=== PATIENT | female | born 1935 | race Caucasian/White ===

== ENCOUNTER → 2017-09-11 | Outpatient (CLI) | payer MEDICARE, OTHER, BC ==
[2016-08-11 11:24] VITALS: BP 115/65
--- NOTE | 2017-09-11 14:54 | RAD ---
DATE: 09/11/2017 EXAM: MAMMO DANIELLE SCREENING BILATERAL HISTORY: Routine screening, remote right breast cancer COMPARISON: 08/30/2015 This study was interpreted with the benefit of Computerized Aided Detection (CAD). The breast parenchyma shows scattered fibroglandular densities. Breast parenchyma level B. FINDINGS: 2-D and 3-D tomosynthesis imaging was performed in CC and MLO projections. No new or enlarging breast densities are seen. Benign type calcifications are present. No suspicious microcalcifications have developed. IMPRESSION: Stable mammograms without evidence of malignancy. BI-RADS CATEGORY: 2 BENIGN FINDING(S) RECOMMENDED FOLLOW-UP: 12M 12 MONTH FOLLOW-UP PQRS compliance statement: Patient information was entered into a reminder system with a target due date for the next mammogram. Mammography is a sensitive method for finding small breast cancers, but it does not detect them all and is not a substitute for careful clinical examination. A negative mammogram does not negate a clinically suspicious finding and should not result in delay in biopsying a clinically suspicious abnormality. "Our facility is accredited by the [employer] Mammography Program."
== END | disposition home or self-care (01) ==
LOC: MAMMO 08:21
PROVIDERS: ATTEND Nurse Practitioner Family
DX: Z12.31 Encounter for screening mammogram for malignant neoplasm of breast (principal); E11.9 Type 2 diabetes mellitus without complications; I10 Essential (primary) hypertension; Z85.3 Personal history of malignant neoplasm of breast
CPT/HCPCS: 77063; 77067

== ENCOUNTER → 2017-09-15 | Outpatient (CLI) | payer MEDICARE, OTHER, BC ==
[2016-08-11 11:24] VITALS: BP 115/65
[2017-09-15 10:03] LABS: BASO % 1 % (0-3); EOS # 0.1 x10^3/uL (0.0-0.7); EOS % 1 % (0-3); HEMATOCRIT 32.8 % (36.0-47.0); HEMOGLOBIN 10.8 g/dL (12.0-15.5); LYMPH # 0.7 x10^3/uL (1.0-4.8); LYMPH % 14 % (24-48); MEAN CORPUSCULAR HEMOGLOBIN 31 pg (25-35); MEAN CORPUSCULAR HGB CONC 33 g/dL (31-37); MEAN CORPUSCULAR VOLUME 95 fL (79-100); MONO # 0.4 x10^3/uL (0.0-1.1); MONO % 8 % (0-9); NEUT % 77 % (31-73); PLATELET COUNT 184 x10^3/uL (140-400); RED BLOOD COUNT 3.45 x10^6/uL (3.50-5.40); RED CELL DISTRIBUTION WIDTH 13.8 % (11.5-14.5); WHITE BLOOD COUNT 5.2 x10^3/uL (4.0-11.0)
[2017-09-15 10:18] LABS: BACTERIA,URINE FEW /HPF (0-FEW); BILIRUBIN,URINE NEG (NEG); CLARITY,URINE HAZY; COLOR,URINE YELLOW; GLUCOSE,URINE NEG (NEG); NITRITE,URINE NEG (NEG); RBC,URINE 0 /HPF (0-2); SQUAMOUS EPITHELIAL CELL,UR FEW /LPF; UROBILINOGEN,URINE 0.2 mg/dL (0.2 mg/dL)
[2017-09-15 10:29] LABS: ALBUMIN 3.6 g/dL (3.4-5.0); CREATININE 1.1 mg/dL (0.6-1.0); DIRECT BILIRUBIN 0.1 mg/dL (0.0-0.2); GFR 47.3; POTASSIUM 4.6 mmol/L (3.5-5.1); TOTAL BILIRUBIN 0.3 mg/dL (0.2-1.0); TOTAL PROTEIN 6.1 g/dL (6.4-8.2)
[2017-09-15 20:26] LABS: FREE T4 1.11 ng/dL (0.76-1.46); THYROID STIM HORMONE (TSH) 3.191 uIU/mL (0.358-3.740)
[2017-09-16 01:08] LABS: HEMOGLOBIN A1C 5.5 % (4.8-5.6)
== END | disposition home or self-care (01) ==
LOC: LAB 08:21
PROVIDERS: ATTEND Nurse Practitioner Family
DX: Z00.01 Encounter for general adult medical examination with abnormal findings (principal); E11.649 Type 2 diabetes mellitus with hypoglycemia without coma; I10 Essential (primary) hypertension; E78.00 Pure hypercholesterolemia, unspecified; R82.99 Other abnormal findings in urine
CPT/HCPCS: 36415; 80048; 80061; 80076; 81001; 83036; 84439; 84443; 85025; 87086

== ENCOUNTER 2017-10-17 19:09 | Emergency (ER) | payer MEDICARE, BC, OTHER ==
[~2017-10-17] VITALS: Ht 165.1 cm; Wt 93.3 kg
--- NOTE | 2017-10-17 19:14 | ED.ADGEN ---
Past History Past Medical History: Cancer, Diabetes, High Cholesterol, Hypertension Past Surgical History: Cancer Surgery Alcohol Use: None Drug Use: None Adult General Chief Complaint Chief Complaint "... I was going down the stairs at the [facility]... and got to the landing... and when I started down the next set of stairs.. I missed the step and spun... and lady caught me.... and I cut this Rt thumb... and banged the edge of this Lt knee...." HPI HPI Patient is a 82 year old female who presents with above hx and complaints avulsion laceration to Rt. thumb and contusion to Lt knee. Pt. denies she fell , (but almost). Pt caught thumb on the underside of rail and tore the skin, causing a 4 cm flap laceration and contusion. Pt. Lt. hand dominate. Pt. has small contusion to Lt knee. Distal neurovascular intact. Can do straight leg lift. Has findings of old knee replacement surgery. Pt. denies and dizziness or syncope. States she just missed the step. Pt. does not remember her last tetanus...but thinks it has been over 10 yrs. Review of Systems Review of Systems Constitutional: Denies fever or chills [] Eyes: Denies change in visual acuity, redness, or eye pain [] HENT: Denies nasal congestion or sore throat [] Respiratory: Denies cough or shortness of breath [] Cardiovascular: No additional information not addressed in HPI [] GI: Denies abdominal pain, nausea, vomiting, bloody stools or diarrhea [] : Denies dysuria or hematuria [] Musculoskeletal: Denies back pain or joint pain []Complaints of contusion to Lt lateral knee. Integument: Denies rash or skin lesions [] Complaints of laceration Rt thumb. Neurologic: Denies headache, focal weakness . Pt does have some distal chronic sensory changes [] Endocrine: Denies polyuria or polydipsia []Hx of DM All other systems were reviewed and found to be within normal limits, except as documented in this note. Family History Family History Non-contributory to presentation. Current Medications Current Medications Current Medications Medications (Trade) Dose Ordered Sig/Halley Start Time Stop Time Status Last Admin Dose Admin Bupivacaine HCl (Sensorcaine Mpf 0.5%) 30 ml 1X ONCE 10/17/17 19:30 4/20/18 19:31 DC Lidocaine HCl 20 ml STK-MED ONCE 10/17/17 19:22 10/17/17 19:23 DC Lidocaine/ Epinephrine (Xylocaine 2%-Epi 1:100,000) 20 ml 1X ONCE 10/17/17 19:30 10/17/17 19:31 DC Tetanus/ Diphtheria Toxoids Adsorbed (Tenivac Vial) 0.5 ml ONCE ONCE 10/17/17 19:30 10/17/17 19:31 DC 10/17/17 20:39 0.5 ML Allergies Allergies Allergies Coded Allergies Type Severity Reaction Last Updated Verified Penicillins Allergy Severe 03/07/16 Yes Sulfa (Sulfonamide Antibiotics) Allergy Severe 03/07/16 Yes Physical Exam Physical Exam Constitutional: Moderately acute distress, non-toxic appearance. [] HENT: Normocephalic, atraumatic, bilateral external ears normal, oropharynx moist, no oral exudates, nose normal. [] Eyes: PERRLA, EOMI, conjunctiva normal, no discharge. [] Neck: Normal range of motion, no tenderness, supple, no stridor. [] Cardiovascular:Heart rate regular rhythm, no murmur [] Lungs & Thorax: Bilateral breath sounds equal at apex on auscultation [] Abdomen: Bowel sounds normal, soft, no tenderness, no masses, no pulsatile masses. Obese. Skin: Warm, dry, no erythema, no rash. Skin avulsion tear to Rt dorsal thumb. 4 cm star laceration. Back: No tenderness, no CVA tenderness. [] Extremities: No tenderness, no cyanosis, no clubbing, ROM intact, no edema. [] Arthritic changes. Old surgery scar Lt knee. Contusion Lateral side of knee. Neurologic: Alert and oriented X 3, normal motor function, normal sensory function, no focal deficits noted. []Somewhat wide gait. Psychologic: Affect anxious, judgement normal, mood normal. 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 []Some edema. My interpretation of Lt knee shows old hardware. No obvious fx. or dislocation. DJD Course & Med Decision Making Course & Med Decision Making Pertinent Labs and Imaging studies reviewed. (See chart for details) Suture- Laceration repair.- Wound on Rt dorsal thumb irrigated with saline. Injected edges of laceration with lidocaine and sensorcaine. Wound then re- irrigated extensively in ROM. Skin was torn in an irregular star shaped laceration. Much of skin flap was avascular in appearance. Laceration approximate 4 cm. Skin was pulled together with 4-0 prolene, x 6 running and purse string type pattern. Dressing place with antibiotic ointment- Bactracin. Pt. to keep wound clean and dry. Once initial dressing off to apply polysporin 4 x day. Would expect lost of skin flap since it appears avascular. Will have a scar. Revision may be necessary. Sutures out in 10 days. Skin may be at risk for infection because of contusion to soft tissue and skin was paper thin. Pt. to return if any concerns. Must follow up. Ice, elevation, rest of knee. Tylenol and ibuprofen for pain. [] Final Impression Final Impression 1. 4 cm Laceration dorsal Rt thumb. 2. Contusion to Lt knee[] Problems: Dragon Disclaimer Dragon Disclaimer This electronic medical record was generated, in whole or in part, using a voice recognition dictation system. KARI CLINE MD Oct 17, 2017 19:14
[2017-10-17 19:18] VITALS: BP 140/86
[2017-10-17] MEDS ORDERED: LIDOCAINE 2% 20 ML VIAL. ONE (19:22)
[2017-10-17] MEDS ORDERED: BUPIVACAINE MPF 0.5% 30 ML VIAL. SQ ONE (19:30)
[2017-10-17] MEDS ORDERED: LIDOCAINE 2%/EPI 1:100,000 20 ML VIAL. IJ ONE (19:30)
[2017-10-17] MEDS ORDERED: TETANUS AND DIPHTHERIA TOX/PF 0.5 ML VIAL. VAX IM ONE (19:30)
--- NOTE | 2017-10-18 08:51 | RAD ---
Left knee AP, oblique, lateral and patellar sunrise x-rays 4 views History: Fall, left knee pain. Findings: Total knee arthroplasty. No lucency surrounding the hardware to suggest loosening. No periprosthetic fracture. No fracture or dislocation at the knee. Mild heterotopic ossification posterior of the knee. Soft tissues are unremarkable. Impression: Left knee arthroplasty. No acute osseous injury evident.
--- NOTE | 2017-10-18 08:57 | RAD ---
Right hand x-rays 3 views History: Fall, right hand laceration near the thumb. Comparison: Right hand x-rays from March 09, 2011. Findings: No radiopaque foreign body evident. No fracture or dislocation of the hand. There is an old healed deformity of the base of the fifth metacarpal since the prior study. Osteoarthritic change at the first carpal metacarpal joint. Soft tissue calcifications or chronic foreign bodies in the soft tissues adjacent of the fifth metacarpophalangeal joint. Impression: No acute osseous injury.
== END 2017-10-17 21:00 | disposition home or self-care (01) ==
LOC: ER 19:09
DX: S61.011A Laceration without foreign body of right thumb without damage to nail, initial encounter (principal); S80.02XA Contusion of left knee, initial encounter; E11.9 Type 2 diabetes mellitus without complications; E78.00 Pure hypercholesterolemia, unspecified; I10 Essential (primary) hypertension; Z88.0 Allergy status to penicillin; Z88.2 Allergy status to sulfonamides; W10.8XXA Fall (on) (from) other stairs and steps, initial encounter; Y93.89 Activity, other specified; Y99.8 Other external cause status; Y92.89 Other specified places as the place of occurrence of the external cause
CPT/HCPCS: 12002; 73130; 73564; 82947; 90471; 90714; 99285-25

== ENCOUNTER 2017-10-27 09:19 | Emergency (ER) | payer MEDICARE, BC, OTHER ==
[~2017-10-27] VITALS: Ht 170.2 cm; Wt 86.2 kg
[2017-10-27 09:30] VITALS: BP 191/77
[2017-10-27] MEDS ORDERED: DOXY100C2 PO (10:12)
--- NOTE | 2017-10-27 10:13 | PHYS DOC ---
Past History Past Medical History: Cancer, Diabetes, High Cholesterol, Hypertension Past Surgical History: Cancer Surgery Alcohol Use: None Drug Use: None Adult General Chief Complaint Chief Complaint: SUTURE/STAPLE REMOVAL HPI HPI Patient is a 89 year old F who presents for suture removal from her right hand. Sutures were placed 10 days ago. She notes mild yellowish green drainage. She has been using triple antibiotic ointment and feels that the wound is slightly red and mildly tender. She has no fever sweats or chills. She has no exacerbating symptoms. She has no other associated symptoms Review of Systems Review of Systems Constitutional: Denies fever or chills [] Eyes: Denies change in visual acuity, redness, or eye pain [] HENT: Denies nasal congestion or sore throat [] Respiratory: Denies cough or shortness of breath [] Cardiovascular: No additional information not addressed in HPI [] GI: Denies abdominal pain, nausea, vomiting, bloody stools or diarrhea [] : Denies dysuria or hematuria [] Musculoskeletal: Denies back pain or joint pain [] Integument: Negative except history of present illness Neurologic: Denies headache, focal weakness or sensory changes [] Endocrine: Denies polyuria or polydipsia [] All other systems were reviewed and found to be within normal limits, except as documented in this note. Family History Family History No pertinent family medical history reported Current Medications Current Medications Current medications reviewed Allergies Allergies Allergies Coded Allergies Type Severity Reaction Last Updated Verified Penicillins Allergy Severe 03/07/16 Yes Sulfa (Sulfonamide Antibiotics) Allergy Severe 03/07/16 Yes Physical Exam Physical Exam Constitutional: Well developed, well nourished, no acute distress, non-toxic appearance. [] HENT: Normocephalic, atraumatic, Eyes: EOMI, conjunctiva normal, no discharge. [] Neck: Normal range of motion, no tenderness, supple, no stridor. [] Cardiovascular:Heart rate regular rhythm, no murmur [] Lungs & Thorax: Bilateral breath sounds clear to auscultation [] Skin: Laceration on the right lateral dorsal hand over the base of the first finger. Mild erythema noted around the wound with mild pain noted on suture removal. Minimal Purulent drainage noted on the dressing. Extremities: No tenderness, no cyanosis, no clubbing, ROM intact, no edema. [] Neurologic: Alert and oriented X 3, normal motor function, normal sensory function, no focal deficits noted. [] Psychologic: Affect normal, judgement normal, mood normal. [] Current Patient Data Vital Signs Vital Signs Date Time Temp Pulse Resp B/P (MAP) Pulse Ox O2 Delivery O2 Flow Rate FiO2 10/27/17 09:30 98.3 74 22 99 Room Air EKG EKG [] Radiology/Procedures Radiology/Procedures [] Course & Med Decision Making Course & Med Decision Making Pertinent Labs and Imaging studies reviewed. (See chart for details) It is possible that her symptoms represent infection versus irritation with topical antibiotics and poor wound healing. She was started on oral antibiotic in the emergency room and given a prescription to continue as an outpatient. She was also advised follow-up with her primary care doctor in the near future for further management Dragon Disclaimer Dragon Disclaimer This electronic medical record was generated, in whole or in part, using a voice recognition dictation system. Departure Departure: Impression: Primary Impression: Encounter for wound re-check Additional Impression: Cellulitis Disposition: 01 HOME, SELF-CARE Condition: STABLE Referrals: MANUEL FAN APRN (PCP) Patient Instructions: Wound Check Additional Instructions: Vickie was seen in the emergency department for wound check. No emergency medical condition was found on history or physical exam. Her sutures were removed. Her wound had some signs of infection. She was started on antibiotic and advised to follow-up with her primary care doctor in the next 3-5 days for further management. Scripts Doxycycline Hyclate (DOXYCYCLINE HYCLATE) 100 Mg Capsule 1 CAP PO BID for 7 Days, #14 CAP Prov: DAISY BOSCH MD 10/27/17 Problem Qualifiers Additional Impression: Cellulitis Site of cellulitis: unspecified site Qualified Codes: L03.90 - Cellulitis, unspecified DAISY BOSCH MD Oct 27, 2017 10:13
[2017-10-27] MEDS ORDERED: FENO160T PO (10:21)
[2017-10-27] MEDS ORDERED: LOSA1TAB19 PO (10:21)
[2017-10-27] MEDS ORDERED: PIOG30TA41 PO (10:21)
[2017-10-27] MEDS ORDERED: ZOLP10TA4 PO (10:21)
[2017-10-27] MEDS ORDERED: GLIM2TAB2 PO (10:21)
[2017-10-27] MEDS ORDERED: SITA1TAB7 PO (10:21)
[2017-10-27] MEDS ORDERED: DOXYCYCLINE HYCLATE 100 MG TABLET PO ONE (10:45)
== END 2017-10-27 10:53 | disposition home or self-care (01) ==
LOC: ER 09:19
DX: S61.411D Laceration without foreign body of right hand, subsequent encounter (principal); L03.113 Cellulitis of right upper limb; E11.9 Type 2 diabetes mellitus without complications; E78.00 Pure hypercholesterolemia, unspecified; I10 Essential (primary) hypertension; Z88.0 Allergy status to penicillin; Z88.2 Allergy status to sulfonamides; X58.XXXD Exposure to other specified factors, subsequent encounter
CPT/HCPCS: 99283

== ENCOUNTER 2017-10-31 08:36 | Inpatient (IN) | payer MEDICARE, BC, OTHER ==
[~2017-10-31] VITALS: Ht 170.2 cm; Wt 89.4 kg
[2017-10-31] VITALS (8 sets, daily range): BP systolic 96–189; BP diastolic 73–105
[~2017-10-31 08:36] MED LIST: DOXY100C2 PO; FENO160T PO; GLIM2TAB2 PO; LOSA1TAB19 PO; PIOG30TA41 PO; SITA1TAB7 PO; ZOLP10TA4 PO
[2017-10-31] MEDS ORDERED: ASPIRIN 81 MG TAB.CHEW PO ONE (08:45)
--- NOTE | 2017-10-31 08:46 | EKG ---
[address] [address] Test Date: 2017-10-31 Test Time: 08:42:14 Pat Name: ILANA MALONEY Department: Room: Gender: F Cook Candy: KARLIE : 1935 Requested By: DAVID RUIZ Order Number: [id number] Reading MD: Aristides Singer MD Measurements Intervals [place] Rate: 135 P: DC: QRS: -14 QRSD: 94 T: 44 QT: 314 QTc: 476 Interpretive Statements ATRIAL FIBRILLATION - NON-SPECIFIC ST/T CHANGES Electronically Signed On 11-04-2017 10:16:56 CDT by Aristides Singer MD
[2017-10-31] MEDS ORDERED: METOPROLOL TARTRATE 5 MG/5 ML VIAL. IV ONE ×2 (09:00→11:15)
[2017-10-31 09:37] LABS: BASO % 1 % (0-3); EOS % 1 % (0-3); HEMATOCRIT 35.5 % (36.0-47.0); HEMOGLOBIN 11.8 g/dL (12.0-15.5); LYMPH # 0.5 x10^3/uL (1.0-4.8); LYMPH % 9 % (24-48); MEAN CORPUSCULAR HEMOGLOBIN 32 pg (25-35); MEAN CORPUSCULAR HGB CONC 33 g/dL (31-37); MEAN CORPUSCULAR VOLUME 95 fL (79-100); MONO # 0.3 x10^3/uL (0.0-1.1); MONO % 6 % (0-9); NEUT # 4.4 x10^3uL (1.8-7.7); NEUT % 84 % (31-73); PLATELET COUNT 170 x10^3/uL (140-400); RED BLOOD COUNT 3.72 x10^6/uL (3.50-5.40); RED CELL DISTRIBUTION WIDTH 13.2 % (11.5-14.5); WHITE BLOOD COUNT 5.3 x10^3/uL (4.0-11.0)
[2017-10-31 09:43] LABS: ALBUMIN 3.6 g/dL (3.4-5.0); ALBUMIN/GLOBULIN RATIO 1.4 (1.0-1.7); CALCIUM 9.1 mg/dL (8.5-10.1); CREATININE 1.4 mg/dL (0.6-1.0); GFR 35.8; MAGNESIUM 1.9 mg/dL (1.8-2.4); POTASSIUM 4.4 mmol/L (3.5-5.1); TOTAL BILIRUBIN 0.4 mg/dL (0.2-1.0); TOTAL PROTEIN 6.2 g/dL (6.4-8.2)
--- NOTE | 2017-10-31 09:49 | RAD ---
PORTABLE CHEST 1V History: Atrial fibrillation Comparison: March 09, 2011 Findings: Single view of the chest is submitted. There is no infiltrate, pneumothorax, or effusion. The pericardial cardiac silhouette is within normal limits in size. There is some atherosclerotic calcification of the aortic arch, somewhat tortuous thoracic aorta. There is degenerative change of the shoulders bilaterally. There are again right axillary clips. Impression: 1. There is no radiographic evidence of acute cardiopulmonary disease. Electronically signed by: Johnnie Fregoso MD (10/31/2017 9:46 AM) [facility]
[2017-10-31 09:55] LABS: BACTERIA,URINE FEW /HPF (0-FEW); BILIRUBIN,URINE NEG (NEG); CLARITY,URINE HAZY; COLOR,URINE YELLOW; GLUCOSE,URINE 100 mg/dL (NEG); HYALINE CASTS, URINE OCC /HPF; NITRITE,URINE NEG (NEG); RBC,URINE 0 /HPF (0-2); SQUAMOUS EPITHELIAL CELL,UR MOD /LPF; UROBILINOGEN,URINE 0.2 mg/dL (0.2 mg/dL)
[2017-10-31] MEDS ORDERED: DIGOXIN IV 500 MCG/2 ML AMPUL. IV ONE (10:00)
--- NOTE | 2017-10-31 10:11 | PHYS DOC ---
Past History Past Medical History: Cancer, Diabetes, High Cholesterol, Hypertension Past Surgical History: Other Alcohol Use: None Drug Use: None Adult General Chief Complaint Chief Complaint: SHORTNESS OF BREATH HPI HPI 82-year-old female patient with history of hypertension or diabetes mellitus and dyslipidemia with history of coronary artery disease or history of patient states she felt lightheadedness and dizzy after taking a shower. Patient complaining of shortness of breath and heaviness in substernal area as a moderate pain with generalized weakness. Patient denies palpitation, focal neuro deficit, headache, nausea and vomiting, diarrhea and constipation, urinary symptom, history of the same problem. Review of Systems Review of Systems Constitutional: Denies fever or chills [] Eyes: Denies change in visual acuity, redness, or eye pain [] HENT: Denies nasal congestion or sore throat [] Respiratory: Reports shortness of breath [] Cardiovascular: No additional information not addressed in HPI [] GI: Denies abdominal pain, nausea, vomiting, bloody stools or diarrhea [] : Denies dysuria or hematuria [] Musculoskeletal: Denies back pain or joint pain [] Integument: Denies rash or skin lesions [] Neurologic: Denies headache, focal weakness or sensory changes, reports dizziness and generalized weakness [] Endocrine: Denies polyuria or polydipsia [] All other systems were reviewed and found to be within normal limits, except as documented in this note. Current Medications Current Medications Current Medications Medications (Trade) Dose Ordered Sig/Halley Start Time Stop Time Status Last Admin Dose Admin Aspirin (Children'S Aspirin) 324 mg 1X ONCE 10/31/17 08:45 10/31/17 08:46 DC 10/31/17 09:00 324 MG Digoxin (Lanoxin) 500 mcg 1X ONCE 10/31/17 10:00 10/31/17 10:01 DC Metoprolol Tartrate (Lopressor Vial) 5 mg 1X ONCE 10/31/17 09:00 10/31/17 09:01 DC 10/31/17 09:00 5 MG Allergies Allergies Allergies Coded Allergies Type Severity Reaction Last Updated Verified Penicillins Allergy Severe 03/07/16 Yes Sulfa (Sulfonamide Antibiotics) Allergy Severe 03/07/16 Yes Physical Exam Physical Exam Constitutional: Well developed, well nourished, mild distress, non-toxic appearance. [] HENT: Normocephalic, atraumatic, oropharynx moist, no oral exudates. [] Eyes: PERRLA, EOMI, conjunctiva normal, no discharge. [] Neck: Normal range of motion, no tenderness, supple, no stridor. [] Cardiovascular: Irregularly irregular rhythm with tachycardia, no murmur [] Lungs & Thorax: Bilateral breath sounds clear to auscultation [] Abdomen: Bowel sounds normal, soft, no tenderness, no masses, no pulsatile masses. [] Skin: Warm, dry, no erythema, no rash. [] Back: No tenderness, no CVA tenderness. [] Extremities: No tenderness, no cyanosis, no clubbing, ROM intact, no edema. [] Neurologic: Alert and oriented X 3, normal motor function, normal sensory function, no focal deficits noted. [] Psychologic: Affect normal, judgement normal, mood normal. [] Current Patient Data Vital Signs Vital Signs Date Time Temp Pulse Resp B/P (MAP) Pulse Ox O2 Delivery O2 Flow Rate FiO2 10/31/17 09:45 142 22 154/92 (112) 100 Nasal Cannula 2.0 10/31/17 08:46 98.4 Lab Results Laboratory Tests Test 10/31/17 09:03 10/31/17 09:20 White Blood Count 5.3 x10^3/uL (4.0-11.0) Red Blood Count 3.72 x10^6/uL (3.50-5.40) Hemoglobin 11.8 g/dL (12.0-15.5) L Hematocrit 35.5 % (36.0-47.0) L Mean Corpuscular Volume 95 fL (79-100) Mean Corpuscular Hemoglobin 32 pg (25-35) Mean Corpuscular Hemoglobin Concent 33 g/dL (31-37) Red Cell Distribution Width 13.2 % (11.5-14.5) Platelet Count 170 x10^3/uL (140-400) Neutrophils (%) (Auto) 84 % (31-73) H Lymphocytes (%) (Auto) 9 % (24-48) L Monocytes (%) (Auto) 6 % (0-9) Eosinophils (%) (Auto) 1 % (0-3) Basophils (%) (Auto) 1 % (0-3) Neutrophils # (Auto) 4.4 x10^3uL (1.8-7.7) Lymphocytes # (Auto) 0.5 x10^3/uL (1.0-4.8) L Monocytes # (Auto) 0.3 x10^3/uL (0.0-1.1) Eosinophils # (Auto) 0.0 x10^3/uL (0.0-0.7) Basophils # (Auto) 0.0 x10^3/uL (0.0-0.2) Prothrombin Time 11.1 SEC (9.4-11.4) Prothrombin Time INR 1.1 (0.9-1.1) PTT 28 SEC (23-33) Sodium Level 139 mmol/L (136-145) Potassium Level 4.4 mmol/L (3.5-5.1) Chloride Level 104 mmol/L (98-107) Carbon Dioxide Level 26 mmol/L (21-32) Anion Gap 9 (6-14) Blood Urea Nitrogen 43 mg/dL (7-20) H Creatinine 1.4 mg/dL (0.6-1.0) H Estimated GFR (Cockcroft-Gault) 35.8 BUN/Creatinine Ratio 31 (6-20) H Glucose Level 187 mg/dL (70-99) H Calcium Level 9.1 mg/dL (8.5-10.1) Magnesium Level 1.9 mg/dL (1.8-2.4) Total Bilirubin 0.4 mg/dL (0.2-1.0) Aspartate Amino Transferase (AST) 14 U/L (15-37) L Alanine Aminotransferase (ALT) 20 U/L (14-59) Alkaline Phosphatase 44 U/L (46-116) L Creatine Kinase 66 U/L (26-192) Creatine Kinase MB (Mass) 1.2 ng/mL (0.0-3.6) Creatine Kinase MB Relative Index 1.8 % (0-4) Troponin I Quantitative < 0.017 ng/mL (0-0.055) KA-Qzo-Y-Type Natriuretic Peptide 326 pg/mL (0-449) Total Protein 6.2 g/dL (6.4-8.2) L Albumin 3.6 g/dL (3.4-5.0) Albumin/Globulin Ratio 1.4 (1.0-1.7) Urine Collection Type Unknown Urine Color Yellow Urine Clarity Hazy Urine pH 5.[address] 1.020 Urine Protein Neg (NEG-TRACE) Urine Glucose (UA) 100 mg/dL (NEG) Urine Ketones (Stick) Neg mg/dL (NEG) Urine Blood Trace (NEG) Urine Nitrite Neg (NEG) Urine Bilirubin Neg (NEG) Urine Urobilinogen Dipstick 0.2 mg/dL (0.2 mg/dL) Urine Leukocyte Esterase Trace (NEG) Urine RBC 0 /HPF (0-2) Urine WBC 1-4 /HPF (0-4) Urine Squamous Epithelial Cells Mod /LPF Urine Bacteria Few /HPF (0-FEW) Urine Hyaline Casts Occ /HPF Urine Mucus Slight /LPF EKG EKG EKG interpreted by me. EKG at 0842 showed atrial fibrillation with RVR at rate of 135, left fourth axis deviation, incomplete right bundle branch block, ST and T wave abnormality with consideration of high lateral ischemia or left ventricular strain, no acute ST or T wave abnormality[] Radiology/Procedures Radiology/Procedures [] [address] [address] IMAGING REPORT Signed PATIENT: ILANA MALONEY ACCOUNT: [id number] : 1935 LOCATION: ER AGE: 82 SEX: F EXAM STATUS: REG ER ORD. PHYSICIAN: DAVID RUIZ MD REASON: A fib PROCEDURE: PORTABLE CHEST 1V PORTABLE CHEST 1V History: Atrial fibrillation Comparison: March 09, 2011 Findings: Single view of the chest is submitted. There is no infiltrate, pneumothorax, or effusion. The pericardial cardiac silhouette is within normal limits in size. There is some atherosclerotic calcification of the aortic arch, somewhat tortuous thoracic aorta. There is degenerative change of the shoulders bilaterally. There are again right axillary clips. Impression: 1. There is no radiographic evidence of acute cardiopulmonary disease. Electronically signed by: Christopher Fregoso MD (10/31/2017 9:46 AM) [id number] DICTATED AND SIGNED BY: CHRISTOPHER FREGOSO MD DATE: 10/31/17 0924 CC: MANUEL FAN APRN; DAVID RUIZ MD ~ Course & Med Decision Making Course & Med Decision Making Pertinent Labs and Imaging studies reviewed. (See chart for details) Evaluation of patient in ER showed 82-year-old female patient with complaining of sudden onset of shortness of breath and dizziness and chest pain with new- onset of atrial patient with RVR at heart rate of 150s. Patient had stable blood pressure and oxygen saturation patient instructed Lopressor 5 mg with marked decrease of heart rate. Patient treated with 0.5 mg of digoxin and then Lopressor 5 mg IV and IV fluid with no significant change of heart rate patient was comfortable and did not have hypotension or hypoxia chest pain. Dr Seymour informed at 0 948 and agreed with plan of care. Patient informed about plan of care and agreed with hospitalization. Dragon Disclaimer Dragon Disclaimer This electronic medical record was generated, in whole or in part, using a voice recognition dictation system. Critical Care Time Critical care time was [80] minutes exclusive of procedures. Departure Departure: Impression: Primary Impression: Atrial fibrillation with RVR Additional Impressions: Chest pain Renal insufficiency Dizziness Uncontrolled diabetes mellitus Anemia Disposition: 09 ADMITTED INPATIENT (At 0950) Admitting Physician: Pennie Seymour Condition: IMPROVED Referrals: MANUEL FAN APRN (PCP) Problem Qualifiers DAVID RUIZ MD October 31, 2017 10:11
[2017-10-31] MEDS ORDERED: IV NORMAL SALINE 500ML 500 ML IV ONE (11:15)
[2017-10-31] MEDS ORDERED: METOPROLOL TART IMMED RELEASE 50 MG TABLET PO ONE (13:00)
--- NOTE | 2017-10-31 15:43 | PDOC2 ---
CONSULT Date of Admission DATE: 10/31/17 TIME: 15:43 Reason for Consult: Atrial fibrillation Referring Physician: Dr. Seymour Chief Complaint Dizziness Source: Chart review, Patient Problem List Problems Medical Problems: (1) Anemia Status: Acute (2) Atrial fibrillation with RVR Status: Acute (3) Chest pain Status: Acute (4) Dizziness Status: Acute (5) Renal insufficiency Status: Acute (6) Uncontrolled diabetes mellitus Status: Acute History of Present Illness 82-year-old female presented with dizziness and lightheadedness that started after taking shower. She also had mild associated shortness of breath and retrosternal chest pressure without any exertional component to chest pain. She denied any janna syncope. She denied any previous history of cardiac arrhythmias. Past Medical History Hypertension Hyperlipidemia Diabetes mellitus type 2 Osteoarthritis Breast cancer Uterine cancer Skin cancer Past Surgical History Left total knee arthroplasty Breast lumpectomy Partial hysterectomy Cataract extraction Tonsillectomy Appendectomy Family History Negative for premature coronary artery disease Social History Patient is a nonsmoker and nondrinker Current Medications Current Medications Aspirin (Children'S Aspirin) 324 mg 1X ONCE PO Last administered on 10/31/17at 09:00; Start 10/31/17 at 08:45; Stop 10/31/17 at 08:46; Status DC Metoprolol Tartrate (Lopressor Vial) 5 mg 1X ONCE IV Last administered on at 09:00; Start 10/31/17 at 09:00; Stop 10/31/17 at 09:01; Status DC Digoxin (Lanoxin) 500 mcg 1X ONCE IV Last administered on 10/31/17at 10:10; Start 10/31/17 at 10:00; Stop 10/31/17 at 10:01; Status DC Metoprolol Tartrate (Lopressor Vial) 5 mg 1X ONCE IV Last administered on at 11:17; Start 10/31/17 at 11:15; Stop 10/31/17 at 11:20; Status DC Sodium Chloride 500 ml @ 0 mls/hr 1X ONCE IV Last administered on 10/31/17at 11: 17; Start 10/31/17 at 11:15; Stop 10/31/17 at 11:20; Status DC Metoprolol Tartrate (Lopressor) 50 mg 1X ONCE PO Last administered on at 13:49; Start 10/31/17 at 13:00; Stop 10/31/17 at 13:02; Status DC Active Scripts Active Doxycycline Hyclate 100 Mg Capsule 1 Cap PO BID 7 Days Reported Actos (Pioglitazone Hcl) 30 Mg Tablet 1 Tab PO DAILYBFRLUN Zolpidem Tartrate 10 Mg Tablet 1 Tab PO QHS Losartan-Hctz 50-12.5 Mg Tab (Losartan/Hydrochlorothiazide) 1 Each Tablet 1 Tab PO DAILY Glimepiride 2 Mg Tablet 1 Tab PO DAILYBFRLUN Janumet 50-500 Mg Tablet (Sitagliptin Phos/Metformin Hcl) 1 Each Tablet 1 Tab PO DAILYBFRLUN Fenofibrate 160 Mg Tablet 1 Tab PO DAILY Allergies: Coded Allergies: Penicillins (Verified Allergy, Severe, 03/07/16) Sulfa (Sulfonamide Antibiotics) (Verified Allergy, Severe, 03/07/16) PSYCHOLOGICAL ROS: No: Hallucinations Eyes: No: Loss of vision HEENT: No: Epistaxis Respiratory: No: Hemoptysis, Shortness of breath Gastrointestinal: No: Vomiting Genitourinary: No: Henaturia Neurological: YES: Dizziness, No: Seizures Skin: No: Rash General: Alert, Oriented X3 HEENT: Atraumatic, PERRLA Lungs: Clear to auscultation Heart: Other (heart rate irregular) Abdomen: Soft, No tenderness Extremities: No edema Psych/Mental Status: Mood NL VITALS Vital Signs Date Time Temp Pulse Resp B/P (MAP) Pulse Ox O2 Delivery O2 Flow Rate FiO2 10/31/17 15:07 133 189/76 (113) 10/31/17 12:30 20 100 Nasal Cannula 2.0 10/31/17 08:46 98.4 Labs Laboratory Tests Test 10/31/17 09:03 10/31/17 09:20 10/31/17 13:38 White Blood Count 5.3 x10^3/uL (4.0-11.0) Red Blood Count 3.72 x10^6/uL (3.50-5.40) Hemoglobin 11.8 g/dL (12.0-15.5) Hematocrit 35.5 % (36.0-47.0) Mean Corpuscular Volume 95 fL (79-100) Mean Corpuscular Hemoglobin 32 pg (25-35) Mean Corpuscular Hemoglobin Concent 33 g/dL (31-37) Red Cell Distribution Width 13.2 % (11.5-14.5) Platelet Count 170 x10^3/uL (140-400) Neutrophils (%) (Auto) 84 % (31-73) Lymphocytes (%) (Auto) 9 % (24-48) Monocytes (%) (Auto) 6 % (0-9) Eosinophils (%) (Auto) 1 % (0-3) Basophils (%) (Auto) 1 % (0-3) Neutrophils # (Auto) 4.4 x10^3uL (1.8-7.7) Lymphocytes # (Auto) 0.5 x10^3/uL (1.0-4.8) Monocytes # (Auto) 0.3 x10^3/uL (0.0-1.1) Eosinophils # (Auto) 0.0 x10^3/uL (0.0-0.7) Basophils # (Auto) 0.0 x10^3/uL (0.0-0.2) Prothrombin Time 11.1 SEC (9.4-11.4) Prothromb Time International Ratio 1.1 (0.9-1.1) Activated Partial Thromboplast Time 28 SEC (23-33) Sodium Level 139 mmol/L (136-145) Potassium Level 4.4 mmol/L (3.5-5.1) Chloride Level 104 mmol/L (98-107) Carbon Dioxide Level 26 mmol/L (21-32) Anion Gap 9 (6-14) Blood Urea Nitrogen 43 mg/dL (7-20) Creatinine 1.4 mg/dL (0.6-1.0) Estimated GFR (Cockcroft-Gault) 35.8 BUN/Creatinine Ratio 31 (6-20) Glucose Level 187 mg/dL (70-99) Calcium Level 9.1 mg/dL (8.5-10.1) Magnesium Level 1.9 mg/dL (1.8-2.4) Total Bilirubin 0.4 mg/dL (0.2-1.0) Aspartate Amino Transf (AST/SGOT) 14 U/L (15-37) Alanine Aminotransferase (ALT/SGPT) 20 U/L (14-59) Alkaline Phosphatase 44 U/L (46-116) Creatine Kinase 66 U/L (26-192) Creatine Kinase MB (Mass) 1.2 ng/mL (0.0-3.6) Creatine Kinase MB Relative Index 1.8 % (0-4) Troponin I Quantitative < 0.017 ng/mL (0-0.055) 0.032 ng/mL (0-0.055) HT-Nvw-N-Type Natriuretic Peptide 326 pg/mL (0-449) Total Protein 6.2 g/dL (6.4-8.2) Albumin 3.6 g/dL (3.4-5.0) Albumin/Globulin Ratio 1.4 (1.0-1.7) Urine Collection Type Unknown Urine Color Yellow Urine Clarity Hazy Urine pH 5.0 Urine Specific [place] 1.020 Urine Protein Neg (NEG-TRACE) Urine Glucose (UA) 100 mg/dL (NEG) Urine Ketones (Stick) Neg mg/dL (NEG) Urine Blood Trace (NEG) Urine Nitrite Neg (NEG) Urine Bilirubin Neg (NEG) Urine Urobilinogen Dipstick 0.2 mg/dL (0.2 mg/dL) Urine Leukocyte Esterase Trace (NEG) Urine RBC 0 /HPF (0-2) Urine WBC 1-4 /HPF (0-4) Urine Squamous Epithelial Cells Mod /LPF Urine Bacteria Few /HPF (0-FEW) Urine Hyaline Casts Occ /HPF Urine Mucus Slight /LPF Assessment/Plan 1. Atrial fibrillation with rapid ventricular response, newly diagnosed. Heart rate elevated despite receiving metoprolol and digoxin intravenously. Start Cardizem CD 120 mg daily for rate control and eloquent was 5 mg twice daily for stroke prophylaxis. Check 2-D echo to assess LV systolic function - could be done as an outpatient. Plan for outpatient cardioversion in 3-4 weeks. 2. Hypertension: Controlled 3. Dyslipidemia: Continue fenofibrate 4. Diabetes mellitus type 2: Treat per IM Thank you for your consultation Problems: MEG ORR MD October 31, 2017 15:43
[2017-10-31] MEDS ORDERED: GLIMEPIRIDE 2 MG TABLET PO SCH (18:00)
[2017-10-31] MEDS ORDERED: LOSA100T6 PO (18:40)
--- NOTE | 2017-10-31 19:06 | HP ---
ADMIT DATE: 10/31/2017 HISTORY OF PRESENT ILLNESS: The patient is an 82-year-old female patient who came to the Emergency Room complaining being lightheadedness, dizziness after taking her shower. She complained of some shortness of breath and heaviness in the substernal area, has a moderate pain, generalized weakness. Denied any palpitation. She was evaluated in the Emergency Room, was found to be in atrial fibrillation with rapid ventricular response, and in retrospect, the patient said that she had these symptoms for the last 3 years, but she never mentioned them to her primary care physician. She was treated with metoprolol as well as digoxin in the Emergency Room and was admitted to the ICU, and we did consult the chief engineer waterworks for evaluation and assist in management. PAST MEDICAL HISTORY: Significant for type 2 diabetes mellitus, hypertension, hyperlipidemia, osteoarthritis. She has breast cancer, uterine cancer, and skin cancer. PAST SURGICAL HISTORY: Significant for left total knee arthroplasty, right lumpectomy with radiation and chemotherapy 20 years ago. She has partial hysterectomy 30 years ago. She has bilateral cataract extraction, tonsillectomy, appendectomy, esophagogastroduodenoscopy and colonoscopy. ALLERGIES: She is allergic to PENICILLIN and SULFA DRUGS. MEDICATIONS: She is currently on following medications: She is on doxycycline 100 mg twice a day for 7 days, fenofibrate 160 mg once a day. She is on losartan/hydrochlorothiazide 50/12.5 mg 1 tablet once a day, Ambien 10 mg at bedtime, sitagliptin phosphate/metformin for Janumet 50/500 one tablet once a day, glimepiride 2 mg daily and pioglitazone 30 mg daily. FAMILY HISTORY: She has one brother who at the age of 26 in a car accident. Her sister is 4 years younger and has 2 knee replaced. Her father at age of 81 because of what seemed to be severe peripheral vascular disease. Mother at the age of 68 because of a surgical complication. SOCIAL HISTORY: She is , has 4 daughters and one son. One daughters and her son both disease. She has never smoked, does not drink alcohol or use any recreational drugs. 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 PHYSICAL EXAMINATION GENERAL: When I examined her this afternoon, she looked well and was clearly in no apparent respiratory distress, somewhat pale. No jaundice or cyanosis. No lymphadenopathy, no thyromegaly. No jugular venous distension. No limb edema. VITAL SIGNS: Her heart rate was 138, blood pressure 152/78. Her temperature was 98, respiratory rate was 20, and oxygen saturation was 100% on 2 liters of oxygen. HEAD, EYES, EARS, NOSE AND THROAT: Normocephalic, atraumatic. NECK: Supple. HEART: Showed normal first and second heart sounds with no gallop, rub or murmur. CHEST: Clear to auscultation. No crepitation or rhonchi. ABDOMEN: Distended, soft, nontender. No guarding or rigidity. No organomegaly. All hernial orifices intact. Bowel sounds normal. NEUROLOGIC: She was awake, alert, somewhat hard of hearing. Otherwise, all cranial nerves intact. EXTREMITIES: She moves extremities without difficulty. She ambulates without assistance or assistive devices. LABORATORY DATA: While in the Emergency Room, she has had lab work done, which showed a white cell count 5300, hemoglobin 12, hematocrit 36, MCV 95 and platelet count of 170,000 with normal manual differential. Her serum sodium was 139, potassium 4.4, chloride 104, bicarbonate 26, anion gap of 9, BUN 43, creatinine 1.4, estimated GFR was 36 mL per minute. Her glucose was 187, calcium was 9.1, magnesium was 1.9. Total bilirubin, AST, ALT, alkaline phosphatase were normal. She has so far 2 sets of cardiac enzymes that ruled out myocardial infarction. Her total protein was 6.2, albumin 3.6. Her prothrombin time was 11.1, INR 1.1, aPTT was 28. Urinalysis was essentially unremarkable. Did have a chest x-ray, which showed that there is no infiltrate, pneumothorax or effusion. The pericardial cardiac silhouette is within normal limits in size. There is some atherosclerotic calcification of the aortic arch. Somewhat tortuous thoracic aorta. There are degenerative changes of the shoulders bilaterally. There are again right axillary clips. ASSESSMENT: The patient was admitted with chest pain, atrial fibrillation with rapid ventricular response, impaired kidney function, poorly controlled type 2 diabetes, and she has also mild normochromic normocytic anemia. PLAN: She was treated with digoxin and metoprolol, both IV and orally, in the Emergency Room without much success. She was seen by the Cardiology team and she was started on Cardizem as well as apixaban. I would check her thyroid function tomorrow as well as her lipid profile, and if her heart rate is controlled, she will be discharged home with a plan for cardioversion as an outpatient, perhaps in 4 weeks' time. GEOFFREY MARTI MD DR: JOSHUA/carlos JOB#: [id number] / [id number]
[2017-10-31] MEDS: DOXYCYCLINE HYCLATE 100 MG TABLET PO SCH (22:06)
[2017-10-31] MEDS: ZOLPIDEM 5 MG TABLET. PO SCH (22:06)
[2017-10-31] MEDS: APIXABAN 5 MG TABLET. PO SCH (22:06)
[2017-11-01] VITALS (11 sets, daily range): BP systolic 85–154; BP diastolic 50–78
[2017-11-01 05:59] LABS: CALCIUM 8.6 mg/dL (8.5-10.1); CREATININE 1.5 mg/dL (0.6-1.0); GFR 33.1; POTASSIUM 4.5 mmol/L (3.5-5.1)
[2017-11-01] MEDS: DOXYCYCLINE HYCLATE 100 MG TABLET PO SCH ×2 (07:53→20:44)
[2017-11-01] MEDS: FENOFIBRATE 160MG PO SCH (07:54)
[2017-11-01] MEDS: APIXABAN 5 MG TABLET. PO SCH ×2 (07:54→20:44)
[2017-11-01] MEDS ORDERED: FENOFIBRATE NANOCRYSTALLIZED 145 MG TABLET PO SCH (09:00)
[2017-11-01] MEDS: LOSARTAN PO SCH (09:00)
[2017-11-01 10:35] LABS: THYROID STIM HORMONE (TSH) 4.071 uIU/mL (0.358-3.740)
[2017-11-01] MEDS ORDERED: SITAGLIPTIN PHOS PO SCH (11:30)
[2017-11-01] MEDS ORDERED: PIOGLITAZONE HCL 30 MG PO SCH (11:30)
[2017-11-01] MEDS ORDERED: GLIMEPIRIDE 2 MG PO SCH (11:30)
[2017-11-01] MEDS ORDERED: METFORMIN HCL PO SCH (11:30)
[2017-11-01] MEDS ORDERED: LOSARTAN 50 MG TABLET. ONE ×2 (11:40→11:42)
[2017-11-01] MEDS: IV NORMAL SALINE 1,000ML 1,000 ML IV SCH (13:01)
[2017-11-01] MEDS: LACTOBACILLUS RHAMNOSUS GG 1 CAPSULE. PO SCH (20:44)
[2017-11-01] MEDS: ZOLPIDEM 5 MG TABLET. PO SCH (20:44)
[2017-11-01] MEDS ORDERED: DOCUSATE SODIUM 100 MG CAPSULE PO PRN (20:45)
[2017-11-02 05:43] VITALS: BP 116/51
[2017-11-02 07:58] LABS: CREATININE 1.4 mg/dL (0.6-1.0); GFR 35.8; POTASSIUM 4.5 mmol/L (3.5-5.1)
--- NOTE | 2017-11-02 08:22 | PN ---
DATE: 11/01/2017 SUBJECTIVE: The patient is sitting on the edge of the bed, comfortably in no apparent distress. She apparently converted spontaneously back to sinus rhythm and her heart rate now is in the low 60s. She denied any further episode of shortness of breath ____ unfortunately and for some reason, her serum creatinine has risen. Her BUN and creatinine has risen to 46 and 1.5 from 43 and 1.4. We held her hydrochlorothiazide and we will repeat her lab works tomorrow and if it is back to baseline, we can let her go home. She is already on diltiazem and apixaban. OBJECTIVE: GENERAL: When I examined her this afternoon, she looked well and was clearly in no apparent respiratory distress, pale, but no jaundice, cyanosis, thyromegaly, jugular distention or limb edema. VITAL SIGNS: Her heart rate was 60, blood pressure 151/51, temperature was 98, respiratory rate was 18 and oxygen saturation was 96%. HEAD, EYES, EARS, NOSE AND THROAT: Showed normocephalic, atraumatic. NECK: Supple. HEART: Showed normal first and second sounds. No gallop, rub or murmur. CHEST: Clear to auscultation. No crepitation or rhonchi. ABDOMEN: Distended, soft, nontender. NEUROLOGIC: She is hard of hearing. Otherwise, her cranial nerves intact. She moves extremities without difficulty. She ambulates without assistance or assistive devices. Her intake over the last 24 hours was 1760, output was 750. LABORATORY DATA: As of this morning showed a serum sodium 140, potassium 4.5, chloride 107, bicarbonate 25, anion gap of 8, BUN 46, creatinine 1.5, estimated GFR was 33 mL per minute. Her glucose was 75, calcium was 8.6. Her white cell count was 5300, hemoglobin 11.8, hematocrit 36, MCV 95 and platelet count of 170,000. ASSESSMENT: 1. New onset of atrial fibrillation with rapid ventricular response. The patient converted to spontaneous sinus rhythm. 2. Chest pain. She has 3 sets of cardiac enzymes. 3. Poorly controlled type 2 diabetes. 4. Chronic kidney disease. 5. Normochromic normocytic anemia. PLAN: To discontinue hydrochlorothiazide. Continue with Cardizem, apixaban as well as losartan. I will repeat her labs tomorrow and if kidney function is back to her baseline, she can be discharged home. GEOFFREY MARTI MD DR: JOSHUA/carlos JOB#: [id number] / [id number]
[2017-11-02] MEDS: APIXABAN 5 MG TABLET. PO SCH (08:45)
[2017-11-02] MEDS: FENOFIBRATE 160MG PO SCH (08:46)
[2017-11-02] MEDS: LACTOBACILLUS RHAMNOSUS GG 1 CAPSULE. PO SCH (08:46)
[2017-11-02] MEDS: LOSARTAN PO SCH (08:46)
[2017-11-02] MEDS: DOXYCYCLINE HYCLATE 100 MG TABLET PO SCH (08:46)
[2017-11-02] MEDS: IV NORMAL SALINE 1,000ML 1,000 ML IV SCH (10:00)
[2017-11-02 11:03] VITALS: BP 118/75
[2017-11-02] MEDS ORDERED: APIX5TAB3 PO (11:23)
[2017-11-02] MEDS ORDERED: DILT120C80 PO (11:23)
--- NOTE | 2017-11-02 23:16 | DS ---
DATE OF DISCHARGE: 11/02/2017 HOSPITAL COURSE: The patient is sitting on the edge of the bed comfortably in no apparent distress. She denied any complaint. Nursing staff did not voice any concern and stated that she had an uneventful night. In particular, her heart rate continued to be well controlled on Cardizem, she is back in sinus rhythm. PHYSICAL EXAMINATION: GENERAL: When I examined her, she looked well and was clearly in no apparent respiratory distress, slightly pale, no jaundice, cyanosis, or thyromegaly. No jugular venous distension. No lower limb edema. VITAL SIGNS: Her heart rate was 75, blood pressure 118/75, temperature was 97.7, respiratory rate was 20, and oxygen saturation was 99% on room air. HEAD, EYES, EARS, NOSE AND THROAT: Normocephalic, atraumatic. NECK: Supple. HEART: Showed normal first and second sounds. No gallop, rub or murmur. CHEST: Clear to auscultation. No crepitation or rhonchi. ABDOMEN: Distended, soft, nontender. NEUROLOGIC: She is hard of hearing, but otherwise her cranial nerves are intact. She moves extremities without difficulty. She ambulates without assistance or assistive devices. Her intake over the last 24 hours was 1400, output was 800. LABORATORY DATA: Serum sodium was 142, potassium 4.5, chloride 108, bicarbonate 24, anion gap of 10, BUN 49, creatinine was 1.4, estimated GFR was 36 mL per minute. Her glucose was 113, calcium was 8. Her serum triglycerides were 106, total cholesterol 149, LDL cholesterol 84, VLDL was 21 and HDL 44, ratio 3. TSH was 4.07. Her white cell count was 5300, hemoglobin 12, hematocrit 36, MCV 95 and platelet count of 170. DISCHARGE MEDICATIONS: She will be discharged home to continue on the following medications: Diltiazem 120 mg once a day, apixaban 5 mg p.o. b.i.d., doxycycline 100 mg twice a day, Ambien 10 mg at bedtime. She is on Actos 30 mg once a day, glimepiride 2 mg once a day. She is on sitagliptin/metformin for Janumet 50/500 one tablet once a day. She is on losartan potassium 100 mg daily, fenofibrate 160 mg once a day. We will add also apixaban 5 mg twice a day. FINAL DISCHARGE DIAGNOSES: New onset atrial fibrillation with rapid ventricular response. The patient converted to sinus rhythm spontaneously. 2. Chest pain. She has 3 sets of cardiac enzyme, resolved. 3. Poorly controlled type 2 diabetes mellitus. 4. Zxghl-dw-[id number] kidney injury, resolved. 5. Normochromic normocytic anemia. PLAN: I explained to the patient that she should continue her hydrochlorothiazide. Continue with Cardizem, apixaban, and losartan, other medications. She will be discharged home to be followed in 4 weeks' time from the Cardiology office. EGOFFREY MARTI MD DR: JOSHUA/carlos JOB#: [id number] / [id number]
== END 2017-11-02 12:25 | disposition home health service (06) | DRG 309 ==
LOC: ER 08:36 → ICU 10:46 → 1 SOUTH 11-01 17:20
PROVIDERS: ADMIT Internal Medicine; ATTEND Internal Medicine
DX: I48.91 Unspecified atrial fibrillation (principal); N17.9 Acute kidney failure, unspecified; E11.22 Type 2 diabetes mellitus with diabetic chronic kidney disease; E11.65 Type 2 diabetes mellitus with hyperglycemia; D64.9 Anemia, unspecified; E78.00 Pure hypercholesterolemia, unspecified; E78.5 Hyperlipidemia, unspecified; M19.90 Unspecified osteoarthritis, unspecified site; I12.9 Hypertensive chronic kidney disease with stage 1 through stage 4 chronic kidney disease, or unspecified chronic kidney disease; N18.9 Chronic kidney disease, unspecified; I25.10 Atherosclerotic heart disease of native coronary artery without angina pectoris; Z96.652 Presence of left artificial knee joint; Z82.49 Family history of ischemic heart disease and other diseases of the circulatory system; Z85.3 Personal history of malignant neoplasm of breast; Z85.42 Personal history of malignant neoplasm of other parts of uterus; Z85.828 Personal history of other malignant neoplasm of skin; Z90.711 Acquired absence of uterus with remaining cervical stump; Z98.41 Cataract extraction status, right eye; Z98.42 Cataract extraction status, left eye; Z88.0 Allergy status to penicillin; Z88.2 Allergy status to sulfonamides; Z90.49 Acquired absence of other specified parts of digestive tract; Z90.89 Acquired absence of other organs; Z92.21 Personal history of antineoplastic chemotherapy; Z92.3 Personal history of irradiation; Z79.899 Other long term (current) drug therapy; Z79.84 Long term (current) use of oral hypoglycemic drugs
CPT/HCPCS: 36415; 71045; 80048; 80053; 80061; 81001; 82553; 82947; 83735; 83880; 84443; 84484; 85025; 85610; 85730; 87086; 87641; 93005; 96361; 96374; 96375; 96376; 99292; J1160; J3490; J7040; 99291-25; J7030

== ENCOUNTER → 2017-12-23 | Outpatient (CLI) | payer MEDICARE, BC, OTHER ==
[~2017-12-23] MED LIST changes: +AMINOPHYLLINE 500 MG/20 ML IV ONE; +APIX5TAB3 PO; +DILT120C80 PO; +LOSA100T6 PO; +REGADENOSON 0.4 MG/5 ML DISP.SYRIN. IV ONE
--- NOTE | 2017-12-23 10:18 | CARD ---
MR#: [id number] Date of Study: 12/23/2017 Ordering Physician: DARIEN ORTEGA, Referring Physician: DARIEN ORTEGA, Tech: FLAQUITA León APPROVED REPORT EXAM: Two-dimensional and M-mode echocardiogram with Doppler and color Doppler. Other Information Quality : FairHR: 71bpm Technically limited study due to body habitus. INDICATION Atrial Fibrillation 2D DIMENSIONS Left Atrium(2D)4.8 (1.6-4.0cm)IVSd1.4 (0.7-1.1cm) Aortic Root(2D)2.9 (2.0-3.7cm)LVDd4.7 (3.9-5.9cm) LVOT Diameter2.2 (1.8-2.4cm)PWd1.4 (0.7-1.1cm) LVDs2.8 (2.5-4.0cm)FS (%) 39.3 % SV69.8 mlLVEF(%)69.8 (>50%) Aortic Valve AoV Peak Dl.162.2cm/sAoV VTI36.1cm AO Peak GR.10.5mmHgLVOT Peak Dl.120.7cm/s LVOT VTI 27.79cmAO Mean GR.5mmHg ISAIAH (VMAX)2.87pn0QII (VTI)2.81cm2 Mitral Valve MV E Wgrbctqt37.2cm/sMV DECEL [id number] MV A Wsidgjqg96.9cm/sE/A Ratio1.0 Pulmonary Valve PV Peak Bcviiovd975.0cm/sPV Peak Grad.7mmHg Tricuspid Valve TR P. Mjnqlrmm849rx/sTR Peak Gr.4mmHg Pulmonary Vein S1 Kmyrljfv36.6cm/sD2 Uwhcklcq73.7cm/s LEFT VENTRICLE The left ventricle is normal size. There is mild concentric left ventricular hypertrophy. The left ve ntricular systolic function is normal and the ejection fraction is within normal range. EF 65% There is grossly normal LV segmental wall motion. Transmitral Doppler flow pattern is Grade I-abnormal rela xation pattern. RIGHT VENTRICLE The right ventricle is normal size. The right ventricular systolic function is normal. ATRIA The left atrium is mildly dilated. The right atrium is not well visualized. The interatrial septum is intact with no evidence for an atrial septal defect or patent foramen ovale as noted on 2-D or Doppl er imaging. The septum appears hypertrophied. AORTIC VALVE The aortic valve appears sclerotic and grossly is trileaflet. Doppler and Color Flow revealed no sign ificant aortic regurgitation. There is no significant aortic valvular stenosis. There is no aortic va lvular vegetation. MITRAL VALVE The mitral valve is thickened but opens well. There is no evidence of mitral valve prolapse. There is no significant mitral valve stenosis. Doppler and color-flow analysis was performed. TRICUSPID VALVE The tricuspid valve is not well visualized. Doppler and Color Flow revealed no tricuspid valve regurg itation noted. There is no tricuspid valve prolapse or vegetation. There is no tricuspid valve stenos is. PULMONIC VALVE The pulmonic valve is not well visualized. Doppler and Color Flow revealed no pulmonic valvular regur gitation. There is no pulmonic valvular stenosis. GREAT VESSELS The aortic root is normal in size. The IVC is normal in size and collapses >50% with inspiration. PERICARDIAL EFFUSION There is no pleural effusion. There is no evidence of significant pericardial effusion. Critical Notification Critical Value: No <Conclusion> The left ventricular systolic function is normal and the ejection fraction is within normal range. EF 65% There is grossly normal LV segmental wall motion. Signed by : Darien Ortega, Electronically Approved : 12/23/2017 10:16:41
--- NOTE | 2017-12-24 09:23 | RAD ---
MR#: [id number] Date of Study: 12/23/2017 Ordering Physician: DARIEN ORTEGA, Referring Physician: LORRAINE HEREDIA Tech: AC Morris APPROVED REPORT Test Type: Pharmacological Stress Nurse/Tech: AC Morris Test Indications: A Fib Cardiac History: A Fib Medications: See EHR Medical History: see EHR Resting ECG: SR IRBBB NS CHANGES Resting Heart Rate: 67 bpm Resting Blood Pressure: 174/49mmHg Pretest Chest Pain: None Nurse/Tech Notes Consent: The procedure was explained to the patient in lay terms. Informed consent was witnessed. Lalo eout was entered into [employer]. History and Stress Test performed by AC Morris Pharm. Details Pharmacologic stress testing was performed using 0.4mg per 5ml of regadenoson given intravenously ove r 7-10 seconds. Stress Symptoms near syncope POST EXERCISE Reason for Termination: Infusion complete Max HR: 96 bpm Max Blood Pressure: 137/40mmHg Blood Pressure response to exercise: Normal blood pressure response during stress. Heart Rate response to exercise: normal response INTERPRETATION Stress EKG Conclusion: Relative hypotension with low BP 102/40 post lexiscan - presyncopal - Aminophy line 150mg iv given @ 2 min recovery - symptoms resolved @ 10min 30 sec. The resting EKG shows a sinus rhythm, incomplete right bundle branch block and nonspecific ST-T wave changes. The stress EKG shows no significant changes from baseline. No EKG evidence of stressed induced ischemia. Imaging Protocol IMAGE PROTOCOL: Rest Tc-99m/stress Tc-99m 1 day Rest: Stress: Viability: Radiopharm.Tc99m InmbvqxguZn61j Sestamibi Duration 15min. 10min. Img Date 12/23/2017 12/23/2017 Inj-Img Bhld74wry. 60min. Rest Admin Site:IV - Right AntecubitalAdministrator: AC Morris Stress Admin Site: IV - Right AntecubitalAdministrator: AC Morris LV Perfusion The stress scans have a small apical lateral defect. The rest scans have no significant defects. Nuclear imaging is suggestive of a small area of reversible ischemia in the apical lateral region. Wall Motion Left ventricular systolic function is normal. Ejection fraction is greater than 70%. 3 times a day is 1.11. Conclusion 1. No EKG evidence of stressed induced ischemia. 2. Nuclear imaging shows a small area of reversible ischemia in the apical lateral region. 3. Normal left ventricular systolic function with an ejection fraction of greater than 70%. 4. Moderate risk Lexiscan nuclear stress test. Signed by : Quinn Aguilera MD Electronically Approved : 12/24/2017 09:23:19
== END | disposition home or self-care (01) ==
LOC: NM 07:16
PROVIDERS: ATTEND Internal Medicine Cardiovascular Disease
DX: I48.0 Paroxysmal atrial fibrillation (principal); I51.7 Cardiomegaly; I12.9 Hypertensive chronic kidney disease with stage 1 through stage 4 chronic kidney disease, or unspecified chronic kidney disease; E11.22 Type 2 diabetes mellitus with diabetic chronic kidney disease; N18.9 Chronic kidney disease, unspecified; E78.00 Pure hypercholesterolemia, unspecified
CPT/HCPCS: 78452; 93017; 93306; 96374; 96375; 96376; A9500; J0280; J2785

== ENCOUNTER 2018-08-22 14:20 | Inpatient (IN) | payer MEDICARE, BC, OTHER ==
[~2018-08-22] VITALS: Ht 165.1 cm; Wt 87.3 kg
[~2018-08-22 14:20] MED LIST changes: -AMINOPHYLLINE 500 MG/20 ML IV ONE; -DILT120C80 PO; +DILT120C85 PO; +LOSA100T14 PO; -LOSA100T6 PO; -REGADENOSON 0.4 MG/5 ML DISP.SYRIN. IV ONE
[2018-08-22] MEDS ORDERED: IPRATRPIUM/ALBUTEROL 0.5/2.5MG 3 ML NEBU. ONE (14:42)
[2018-08-22] MEDS ORDERED: IV NORMAL SALINE 1,000ML 1,000 ML IV ONE ×2 (14:45→16:45)
[2018-08-22] MEDS ORDERED: IPRATRPIUM/ALBUTEROL 0.5/2.5MG 3 ML NEBU. NEB ONE (15:00)
[2018-08-22] MEDS ORDERED: ONDANSETRON PF 4 MG/2 ML VIAL. IV ONE (15:00)
--- NOTE | 2018-08-22 15:18 | RAD ---
Single view chest 08/22/2018 CLINICAL INDICATION: Shortness of breath. COMPARISON: Chest 10/31/2017 FINDINGS: Poor depth of inspiration. Prominence of the cardiac silhouette and mediastinal vasculature, likely due to poor depth. No pleural effusion, pneumothorax or focal consolidation. There are multiple right axillary surgical clips. Moderate bilateral glenohumeral osteoarthrosis. IMPRESSION: Poor depth of inspiration, otherwise no acute cardiopulmonary abnormality. Electronically signed by: Alexis Dimas MD (08/22/2018 3:15 PM) [facility] [place]
--- NOTE | 2018-08-22 15:27 | PHYS DOC ---
Past History Past Medical History: Cancer, Diabetes, High Cholesterol, Hypertension Past Surgical History: Other Alcohol Use: None Drug Use: None Adult General Chief Complaint Chief Complaint: FLU SYMPTOM HPI HPI 83-year-old female presents via EMS with 5 day history of nausea, vomiting, and diarrhea. The patient has been able to keep down some fluids, but the vomiting and diarrhea has not stopped. She believes that she has had a fever at home. She developed some increased shortness of breath today and came to the emergency room. The patient is SO noticed increased discoloration of her lower extremities and the right lower leg is more red and edematous than the left. Patient denies chest pain. The patient is a diabetic and amylase reported blood sugar greater than 400. Review of Systems Review of Systems Constitutional: Denies fever or chills [] Eyes: Denies change in visual acuity, redness, or eye pain [] HENT: Denies nasal congestion or sore throat [] Respiratory: As of breath[] Cardiovascular: No additional information not addressed in HPI [] GI: Nausea, vomiting, and diarrhea [] : Denies dysuria or hematuria [] Musculoskeletal: Denies back pain or joint pain [] Integument: Denies rash or skin lesions [] Neurologic: Denies headache, focal weakness or sensory changes [] Endocrine: Denies polyuria or polydipsia [] All other systems were reviewed and found to be within normal limits, except as documented in this note. Current Medications Current Medications Current Medications Medications (Trade) Dose Ordered Sig/Halley Start Time Stop Time Status Last Admin Dose Admin Albuterol/ Ipratropium (Duoneb) 3 ml 1X ONCE 08/22/18 15:00 08/22/18 15:02 DC Ondansetron HCl (Zofran) 4 mg 1X ONCE 08/22/18 15:00 08/22/18 15:01 DC 08/22/18 15:14 4 MG Sodium Chloride 1,000 ml @ 1,000 mls/hr 1X ONCE 08/22/18 14:45 08/22/18 15:44 08/22/18 15:14 1,000 MLS/HR Allergies Allergies Allergies Coded Allergies Type Severity Reaction Last Updated Verified Penicillins Allergy Severe 03/07/16 Yes Sulfa (Sulfonamide Antibiotics) Allergy Severe 03/07/16 Yes Physical Exam Physical Exam Constitutional: Well developed, well nourished, no acute distress, non-toxic appearance. [] HENT: Normocephalic, atraumatic, bilateral external ears normal, oropharynx moist, no oral exudates, nose normal. [] Eyes: PERRLA, EOMI, conjunctiva normal, no discharge. [] Neck: Normal range of motion, no tenderness, supple, no stridor. [] Cardiovascular:Heart rate regular rhythm, no murmur [] Lungs & Thorax: Bilateral breath sounds clear to auscultation [] Abdomen: Bowel sounds normal, soft, no tenderness, no masses, no pulsatile masses. [] Skin: Warm, dry, no erythema, no rash. [] Back: No tenderness, no CVA tenderness. [] Extremities: Right lower extremity 3+ edema, erythematous and warm skin consistent with cellulitis.[] Neurologic: Alert and oriented X 3, normal motor function, normal sensory function, no focal deficits noted. [] Psychologic: Affect normal, judgement normal, mood normal. [] Current Patient Data Vital Signs Vital Signs Date Time Temp Pulse Resp B/P (MAP) Pulse Ox O2 Delivery O2 Flow Rate FiO2 08/22/18 14:46 93 Room Air EKG EKG Irregular rhythm, rate 111, atrial fibrillation, no stiff elevations or depressions.[] Radiology/Procedures Radiology/Procedures [] Impressions: Single view chest 08/22/2018 CLINICAL INDICATION: Shortness of breath. COMPARISON: Chest 10/31/2017 FINDINGS: Poor depth of inspiration. Prominence of the cardiac silhouette and mediastinal vasculature, likely due to poor depth. No pleural effusion, pneumothorax or focal consolidation. There are multiple right axillary surgical clips. Moderate bilateral glenohumeral osteoarthrosis. IMPRESSION: Poor depth of inspiration, otherwise no acute cardiopulmonary abnormality. Electronically signed by: Lily Dimas MD (08/22/2018 3:15 PM) [facility] [place] AND SIGNED BY: LILY DIMAS MD DATE: 08/22/18 [id number] CC: TAZ ROWELL DO; BETTY LOTT MD Course & Med Decision Making Course & Med Decision Making Pertinent Labs and Imaging studies reviewed. (See chart for details) The patient's labs show creatinine to her baseline. Her lactic acid is 2.3. She has been given 1500 mL of fluid thus far. I will or more. Her blood sugar is 380. Patient is positive for influenza A and B. She has a right lower extremity cellulitis for which I had given her Rocephin 2 g in the ED. Her vomiting has been controlled in the ER with Zofran. I discussed the case with Dr. Seymour and he has agreed to admit the patient to the ICU. Greater than 35 minutes of critical care time was spent on this patient exclusive of other billable procedures. [] Dragon Disclaimer Dragon Disclaimer This electronic medical record was generated, in whole or in part, using a voice recognition dictation system. 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
[2018-08-22 15:28] LABS: BASO % 0 % (0-3); EOS % 0 % (0-3); HEMATOCRIT 31.8 % (36.0-47.0); HEMOGLOBIN 10.5 g/dL (12.0-15.5); LYMPH # 0.2 x10^3/uL (1.0-4.8); LYMPH % 2 % (24-48); MEAN CORPUSCULAR HEMOGLOBIN 31 pg (25-35); MEAN CORPUSCULAR HGB CONC 33 g/dL (31-37); MEAN CORPUSCULAR VOLUME 92 fL (79-100); MONO # 0.3 x10^3/uL (0.0-1.1); MONO % 3 % (0-9); NEUT # 9.3 x10^3uL (1.8-7.7); NEUT % 95 % (31-73); PLATELET COUNT 140 x10^3/uL (140-400); RED BLOOD COUNT 3.45 x10^6/uL (3.50-5.40); RED CELL DISTRIBUTION WIDTH 14.3 % (11.5-14.5); WHITE BLOOD COUNT 9.8 x10^3/uL (4.0-11.0)
[2018-08-22 15:50] LABS: INFLUENZA A PATIENT POSITIVE (NEGATIVE); INFLUENZA B PATIENT POSITIVE (NEGATIVE)
[2018-08-22 15:51] LABS: % BANDS 11 % (0-9); % LYMPHS 2 % (24-48); % MONOS 4 % (0-10); % SEGS 83 % (35-66); PLT ESTIMATE ADEQUATE (ADEQUATE); TOXIC GRANULATION PRESENT
[2018-08-22 15:57] LABS: ALBUMIN 2.7 g/dL (3.4-5.0); ALBUMIN/GLOBULIN RATIO 0.6 (1.0-1.7); CALCIUM 8.2 mg/dL (8.5-10.1); CREATININE 2.9 mg/dL (0.6-1.0); GFR 15.4; TOTAL PROTEIN 6.9 g/dL (6.4-8.2); TOXIC VACUOLATION PRESENT
[2018-08-22 15:58] LABS: OVALOCYTES OCC; TOTAL BILIRUBIN 0.6 mg/dL (0.2-1.0)
[2018-08-22] MEDS ORDERED: IV NORMAL SALINE 100ML 100 ML ONE (16:01)
[2018-08-22] MEDS ORDERED: ACETAMINOPHEN 500 MG TABLET PO ONE (17:00)
[2018-08-22] MEDS ORDERED: ONDANSETRON PF 4 MG/2 ML VIAL. IV PRN (17:45)
--- NOTE | 2018-08-22 17:46 | EKG ---
[address] [address] Test Date: 2018-08-22 Test Time: 14:34:07 Pat Name: ILANA MALONEY Department: Room: ICU02 1 Gender: F Communications Programmer: JORGE : 1935 Requested By: TAZ ROWELL Order Number: [id number] Reading MD: Quinn Aguilera Measurements Intervals [place] Rate: 111 P: TX: QRS: -1 QRSD: 104 T: 26 QT: 324 QTc: 444 Interpretive Statements ATRIAL FIBRILLATION. NONSPECIFIC ST-T WAVE CHANGES. Electronically Signed On 08-24-2018 10:58:40 BACTERIOLOGY RESEARCH ASSISTANT by Quinn Aguilera
[2018-08-22 18:00] VITALS: BP 122/56
[2018-08-22] MEDS ORDERED: VANCOMYCIN PER PHARMACY MC PRN (18:30)
[2018-08-22] MEDS ORDERED: DEXTROSE 50% 25 GM / 50ML DISP.SYRIN. IV PRN (18:30)
[2018-08-22 18:54] LABS: BGAS PH 7.32 (7.35-7.45)
[2018-08-22 19:00] VITALS: BP 120/60
[2018-08-22] MEDS ORDERED: DIGOXIN IV 500 MCG/2 ML AMPUL. IV ONE (19:00)
[2018-08-22] MEDS: MEROPENEM 500 MG in IV NORMAL SALINE 50ML 50 ML IV SCH (19:30)
[2018-08-22] MEDS ORDERED: VANCOMYCIN 1.5 GM in IV NORMAL SALINE 500ML 500 ML IV ONE (20:00)
[2018-08-22] MEDS ORDERED: OSELTAMIVIR 30 MG CAPSULE PO SCH ×2 (21:00)
[2018-08-22 21:48] VITALS: BP 168/74
[2018-08-22 22:12] VITALS: BP 178/98
[2018-08-22 23:08] VITALS: BP 147/57
[2018-08-22 23:53] VITALS: BP 117/54
[2018-08-22] MEDS: ACETAMINOPHEN 325 MG TABLET PO PRN (23:55)
[2018-08-23] VITALS (18 sets, daily range): BP systolic 100–133; BP diastolic 42–75
[2018-08-23] MEDS: ACETAMINOPHEN 325 MG TABLET PO PRN ×2 (06:27→13:41)
[2018-08-23 07:51] LABS: BASO % 0 % (0-3); EOS % 0 % (0-3); HEMATOCRIT 27.1 % (36.0-47.0); HEMOGLOBIN 9.1 g/dL (12.0-15.5); LYMPH # 0.1 x10^3/uL (1.0-4.8); LYMPH % 1 % (24-48); MEAN CORPUSCULAR HEMOGLOBIN 31 pg (25-35); MEAN CORPUSCULAR HGB CONC 34 g/dL (31-37); MEAN CORPUSCULAR VOLUME 91 fL (79-100); MONO # 0.3 x10^3/uL (0.0-1.1); MONO % 3 % (0-9); NEUT # 7.2 x10^3uL (1.8-7.7); NEUT % 95 % (31-73); PLATELET COUNT 115 x10^3/uL (140-400); RED BLOOD COUNT 2.98 x10^6/uL (3.50-5.40); RED CELL DISTRIBUTION WIDTH 14.2 % (11.5-14.5); WHITE BLOOD COUNT 7.5 x10^3/uL (4.0-11.0)
[2018-08-23 08:11] LABS: ALBUMIN 2.1 g/dL (3.4-5.0); ALBUMIN/GLOBULIN RATIO 0.6 (1.0-1.7); CALCIUM 6.9 mg/dL (8.5-10.1); CREATININE 2.9 mg/dL (0.6-1.0); GFR 15.4; TOTAL BILIRUBIN 0.3 mg/dL (0.2-1.0); TOTAL PROTEIN 5.7 g/dL (6.4-8.2)
[2018-08-23] MEDS: INSULIN LISPRO 300 UNITS/3 ML INSULN.PEN. SQ SCH ×3 (08:22→16:55)
[2018-08-23] MEDS ORDERED: HYDR-2145 PO (08:33)
[2018-08-23] MEDS ORDERED: OMEP20CA9 PO (08:36)
[2018-08-23] MEDS ORDERED: TRIA15CR50 TP (08:37)
[2018-08-23] MEDS ORDERED: ALBU2.5V8 INH (08:37)
[2018-08-23] MEDS ORDERED: ALBUTEROL SULFATE 2.5 MG/3 ML NEBU. INH PRN (08:45)
[2018-08-23] MEDS ORDERED: TRIAMCINOLONE ACETONIDE 0.1% TOPICAL CREAM 15GM TUBE. TP SCH (09:00)
[2018-08-23] MEDS ORDERED: LACTOBACILLUS RHAMNOSUS GG 1 CAPSULE. PO SCH (09:00)
[2018-08-23] MEDS ORDERED: NON FORMULARY ITEM (Apixaban (Eliquis) 5 MG) PO SCH (09:00)
[2018-08-23] MEDS ORDERED: PANTOPRAZOLE 40 MG TABLET. PO SCH (09:00)
[2018-08-23] MEDS ORDERED: APIXABAN 2.5 MG TABLET PO SCH (09:00)
--- NOTE | 2018-08-23 09:26 | RAD ---
Bilateral lower extremity venous Doppler ultrasound HISTORY: Cellulitis. FINDINGS: Right and left lower extremity femoral-popliteal venous system appears patent with normal compressibility and response to augmentation. Visualized calf veins appear patent. IMPRESSION: Negative for right or left leg deep venous thrombosis. Electronically signed by: Charlie Adame MD (08/23/2018 9:23 AM) [facility]
[2018-08-23] MEDS ORDERED: SODIUM BICARBONATE IVF 150 MEQ in IV STERILE WATER 1,000 ML IV SCH (10:00)
[2018-08-23 10:21] LABS: BGAS PH 7.35 (7.35-7.45)
[2018-08-23 10:27] LABS: BACTERIA,URINE FEW /HPF (0-FEW); BILIRUBIN,URINE NEG (NEG); CLARITY,URINE CLOUDY; COLOR,URINE YELLOW; GLUCOSE,URINE NEG (NEG); NITRITE,URINE NEG (NEG); RBC,URINE RARE /HPF (0-2); SQUAMOUS EPITHELIAL CELL,UR OCC /LPF; UROBILINOGEN,URINE 0.2 mg/dL (0.2 mg/dL); WBC,URINE RARE /HPF (0-4)
[2018-08-23 10:28] LABS: AMORPHOUS SEDIMENT,UR PRESENT /HPF
[2018-08-23] MEDS: MEROPENEM 500 MG in IV NORMAL SALINE 50ML 50 ML IV SCH (10:59)
--- NOTE | 2018-08-23 11:05 | HP ---
ADMIT DATE: 08/22/2018 HISTORY OF PRESENT ILLNESS: The patient is an 83-year-old female patient, who was brought to the Emergency Room by emergency medical services complaining that for the last 5 days, she has been having nausea, vomiting and diarrhea. She was able to keep some fluids down, but vomiting and diarrhea have not stopped. She also complained that she has fever at home. She developed some increased shortness of breath on the day of admission and came to the Emergency Room. She also complained discoloration of her lower extremities with her right lower extremity more red and edematous than the left; however, she denied any chest pain. She is diabetic and the EMS reports that the blood sugar is greater than 400. She was extensively investigated in the Emergency Room and was found to be positive for influenza A and B. Her blood gas showed that she has metabolic acidosis. Her bicarb was only 15. She has also lactic acidosis. Her D-dimer was high at 1.87 and chemistry showed that she has acute on chronic kidney injury. Her baseline creatinine is 1.4 and on admission, her creatinine was up to 2.9. The patient was admitted with bilateral lower extremity cellulitis with lymphangitis as well as influenza A and B. She was started on IV meropenem as well as vancomycin, as she is allergic to PENICILLIN and also was started on Tamiflu 30 mg once a day based on her kidney function and was admitted to the ICU for close observation. PAST MEDICAL HISTORY: Significant for type 2 diabetes mellitus, hypertension, hyperlipidemia, generalized osteoarthritis. She has breast cancer, uterine cancer, and skin cancer. PAST SURGICAL HISTORY: Significant for left total knee arthroplasty, right lumpectomy with radiation chemotherapy 20 years ago. She has partial hysterectomy 30 years ago. She has bilateral cataract extraction, tonsillectomy, appendectomy, esophagogastroduodenoscopy, and colonoscopy. ALLERGIES: SHE IS ALLERGIC TO PENICILLIN AND SULFA DRUGS. MEDICATIONS: She is currently on following medications: She is on albuterol sulfate 1 puff every 4 hours, apixaban 5 mg twice a day, fenofibrate 160 mg daily, diltiazem 120 mg daily, losartan potassium 100 mg daily, Ambien 5 mg at bedtime, hydrochlorothiazide 25 mg daily, omeprazole 20 mg daily. She is on sitagliptin/metformin 50/500 one tablet daily with breakfast and lunch. She is also on pioglitazone for Actos 30 mg once a day, triamcinolone acetonide 15-gram cream applied topically twice a day. FAMILY HISTORY: She has one brother who at age of 26 in a car accident. Her sister is 4 years younger and has 2 knees replaced. Her father at age of 81 because of what seemed to be severe peripheral vascular disease. Mother at the age of 68 because of surgical complication. SOCIAL HISTORY: She is ; has 4 daughters and 1 son. One daughter and one son have both . She has never smoked, does not drink alcohol or use any recreational drugs. REVIEW OF SYSTEMS: As per history of present illness. PHYSICAL EXAMINATION: GENERAL: On arrival to the Emergency Room, the patient is clearly tachypneic, tachycardic, pale, but no jaundice, cyanosis, or thyromegaly. No jugular venous distension. Mild bilateral lower limb edema. VITAL SIGNS: Her heart rate was 119, blood pressure 141/61, temperature was 99.1, respiratory rate was 36 and oxygen saturation was 92% on room air. HEAD, EYES, EARS, NOSE AND THROAT: Showed normocephalic, atraumatic. NECK: Supple. HEART: Showed normal first and second heart sounds with no gallop, rub or murmur. CHEST: Clear to auscultation. No crepitation or rhonchi. ABDOMEN: Distended, soft, nontender. No guarding or rigidity. No organomegaly. Hernial orifice intact. Bowel sounds normal. NEUROLOGIC: She was awake, some hard of hearing, otherwise, all other cranial nerves are intact. She moves extremities without difficulty. She normally lives alone, independent. LABORATORY DATA: On admission showed her serum sodium was 130, potassium 5, chloride 94, bicarbonate 22, anion gap of 14, BUN 76, creatinine 2.9, estimated GFR was 15, glucose was 180, calcium was 8.2. Total bilirubin, AST, ALT, alkaline phosphatase were normal. Total protein was 6.9, albumin was 2.7. Her white cell count was 9800, hemoglobin 10.5, hematocrit 32, MCV 92, and platelet count of 140,000. Her blood gases showed a pH of 7.32, pCO2 of 30, pO2 of 99, bicarbonate 15, and oxygen saturation was 97% on FiO2 of 28%. Her D-dimer was 1.87 mg/dL. Her influenza A and B were positive. DIAGNOSTIC DATA: Her chest x-ray showed that the patient has poor depth of inspiration. There is prominence of cardiac silhouette and mediastinum vasculature, likely due to productive and inspiration. There is no pleural effusion, pneumothorax, or focal consolidation. There are multiple right axillary surgical clips; has moderate bilateral glenohumeral osteoarthrosis. ASSESSMENT AND PLAN: The patient was admitted with 1. Influenza A and B. 2. Bilateral lower extremity cellulitis. 3. Acute on chronic renal failure. 4. Lactic acidosis that could be because she is on metformin. She was given about 3 liters of fluid and was admitted to the ICU. We held all her nephrotoxic medications including hydrochlorothiazide and losartan; start her on IV meropenem, vancomycin as well as Tamiflu based on her kidney function. We will follow her closely and we will decide on further management according to her response. Her D-dimer was high, so we will arrange for her to have bilateral lower extremity cellulitis. We could not do the CT angio given her impaired kidney function; however, she is already on apixaban and treatment will not be different. GEOFFREY MARTI MD DR: JOSHUA/carlos JOB#: [id number] / [id number]
--- NOTE | 2018-08-23 11:12 | PN ---
DATE: 08/23/2018 SUBJECTIVE: The patient is resting, slightly propped up in bed, clearly tachypneic, continued to be tachycardic. Her temperature last night was 103.5. PHYSICAL EXAMINATION: GENERAL: When I saw her this morning, she looked pale, but no jaundice or cyanosis. No lymphadenopathy, no thyromegaly. No jugular venous distention. Mild bilateral lower limb edema with bilateral lower extremity erythema. VITAL SIGNS: Her heart rate this morning was 99, blood pressure was 133/72, temperature was 101.1, respiratory rate was 35 and oxygen saturation was 98% on 4 liters of oxygen. HEAD, EYES, EARS, NOSE AND THROAT: Showed normocephalic, atraumatic. NECK: Supple. HEART: Showed normal first and second heart sounds. No gallop, rub or murmur. CHEST: Clear to auscultation. No crepitation or rhonchi. ABDOMEN: Distended, soft, nontender. NEUROLOGIC: She was hard of hearing. Otherwise, her cranial nerves are intact. She moves extremities without difficulty, although she is mostly bed bound. Her intake was 3240, output was 151. LABORATORY DATA: Her lab work this morning showed a white cell count down to 7500, hemoglobin 9.1, hematocrit 27, MCV 91, and platelet count of 115,000 with normal manual differential. Her chemistry showed a serum sodium 134, potassium 4, chloride 102, bicarbonate 19, anion gap of 13, BUN of 75, creatinine 2.9, estimated GFR was 15 mL per minute. Her glucose was 187, calcium was 6.9. Total bilirubin, AST, ALT, alkaline phosphatase were normal. Total protein was 5.7, albumin was 2.1. ASSESSMENT: In summary, this is an 83-year-old female patient who was admitted with recurrent bouts of nausea, vomiting, diarrhea that have been going on for almost 5 days prior to admission. She was found to have: 1. Acute on chronic kidney injury with creatinine that has risen from 1.4 to 2.9. Fortunately, it has not really budged, despite all the fluid that she received. She has influenza A and B positive. 2. She has lactic acidosis, probably partly due to metformin. 3. She has bilateral lower extremity cellulitis. 4. Questionable urinary tract infection. PLAN: My plan is to give her another bolus of normal saline this morning and start her on bicarbonate drip. We will check her blood gases. Send urine for urine culture and sensitivity and continue with IV vancomycin and meropenem based on kidney function as well as the Tamiflu. We will repeat her lab work later on today and if there is no improvement, she might require to be transferred to [facility] as she might require a dialysis. GEOFFREY MARTI MD DR: JOSHUA/carlos JOB#: [id number] / [id number]
[2018-08-23] MEDS ORDERED: PIOGLITAZONE 15 MG TABLET. PO SCH (11:30)
[2018-08-23 14:25] LABS: CALCIUM 6.6 mg/dL (8.5-10.1); CREATININE 2.8 mg/dL (0.6-1.0); GFR 16.1; POTASSIUM 3.6 mmol/L (3.5-5.1)
[2018-08-23] MEDS ORDERED: DIGOXIN IV 500 MCG/2 ML AMPUL. IV ONE (15:45)
[2018-08-24] MEDS ORDERED: VANCOMYCIN RANDOM LEVEL. MC ONE (20:00)
--- NOTE | 2018-09-10 23:07 | PN ---
DATE: 09/10/2018 SUBJECTIVE: The patient is resting, slightly propped up in bed, in no apparent distress. She is definitely more awake, alert, continued to be somewhat tachypneic, tachycardic. She apparently was retaining urine yesterday and about 800 mL of urine were drained out. Looking back, she apparently dropped her hemoglobin from 10 to 8 for almost a month now and her Eliquis was held by the supervisor capacitor processing. She continued to be in atrial fibrillation with rapid ventricular response. PHYSICAL EXAMINATION: GENERAL: When I examined her, she looked pale, but no jaundice, cyanosis, lymphadenopathy or thyromegaly. No jugular venous distension. No lower limb edema. VITAL SIGNS: Her heart rate was 106, blood pressure was 111/57, temperature was 99.3, respiratory rate was 30 and oxygen saturation was 94% on 3.5 liters of oxygen. HEAD, EYES, EARS, NOSE AND THROAT: Showed normocephalic, atraumatic. NECK: Supple. HEART: Showed normal first and second sounds. No gallop, rub or murmur. CHEST: Clear to auscultation. No crepitation or rhonchi. ABDOMEN: Distended, soft, nontender. NEUROLOGIC: She is definitely more awake, alert, responding appropriately. All cranial nerves intact. She moves extremities without difficulty, although she is mostly bedbound, chair bound. Her intake yesterday was 1345 and output was 2275. LABORATORY DATA: Her lab work this morning showed a white cell count of 3900, hemoglobin 8, hematocrit 25, MCV 93, and platelet count of 135,000. Her chemistry showed a serum sodium 140, potassium 4.5, chloride was 106, bicarbonate 28, anion gap of 6, BUN 40, creatinine 1.2, estimated GFR was 43 mL per minute. Her glucose was 356, calcium was 7, magnesium was 1.9. Total bilirubin, AST, ALT, alkaline phosphatase were normal. The beta natriuretic peptide was 3966 and total protein was 4.9 and albumin was 1.8. ASSESSMENT: 1. Chest pressure that lasted about 25 minutes. Her cardiac enzymes were less than 0.017. She was found to be in atrial fibrillation with rapid ventricular response. She could not tolerate the Cardizem drip. 2. Type 2 diabetes mellitus, suboptimally controlled. 3. Hypertension, ____. The patient is borderline hypotensive. 4. Hyperlipidemia. 5. Generalized osteoarthritis. 6. She has bilateral lower extremity cellulitis and bilateral lower extremity wounds. PLAN: My plan is to continue with the digoxin 0.25 mg daily and we will also add Lasix 20 mg once a day. Meanwhile, we will continue with the IV antibiotic. GEOFFREY MARTI MD DR: JOSHUA/carlos JOB#: [id number] / [id number]
== END 2018-08-23 19:00 | disposition short-term general hospital (02) | DRG 871 ==
LOC: ER 14:20 → ICU 17:29
PROVIDERS: ADMIT Internal Medicine; ATTEND Internal Medicine
DX: A41.9 Sepsis, unspecified organism (principal); E43 Unspecified severe protein-calorie malnutrition; N17.9 Acute kidney failure, unspecified; E87.2 Acidosis; L03.116 Cellulitis of left lower limb; L03.115 Cellulitis of right lower limb; N39.0 Urinary tract infection, site not specified; E11.22 Type 2 diabetes mellitus with diabetic chronic kidney disease; E11.65 Type 2 diabetes mellitus with hyperglycemia; E78.00 Pure hypercholesterolemia, unspecified; E78.5 Hyperlipidemia, unspecified; E86.0 Dehydration; I12.9 Hypertensive chronic kidney disease with stage 1 through stage 4 chronic kidney disease, or unspecified chronic kidney disease; J11.1 Influenza due to unidentified influenza virus with other respiratory manifestations; M15.9 Polyosteoarthritis, unspecified; N18.9 Chronic kidney disease, unspecified; Z82.49 Family history of ischemic heart disease and other diseases of the circulatory system; Z85.3 Personal history of malignant neoplasm of breast; Z85.42 Personal history of malignant neoplasm of other parts of uterus; Z88.0 Allergy status to penicillin; Z90.711 Acquired absence of uterus with remaining cervical stump; Z98.41 Cataract extraction status, right eye; Z98.42 Cataract extraction status, left eye; Z96.653 Presence of artificial knee joint, bilateral; Z85.828 Personal history of other malignant neoplasm of skin; Z74.01 Bed confinement status; Z68.32 Body mass index [BMI] 32.0-32.9, adult
CPT/HCPCS: 36415; 71045; 80048; 80053; 81001; 82803; 82947; 83605; 85007; 85025; 85379; 87040; 87641; 87804; 93005; 93970; 94640; 96361; 96365; 96375; J0696; J1160; J1815; J2185; J2405; J3370; J7040; 99291-25; J7030

== ENCOUNTER 2018-09-09 10:48 | Inpatient (IN) | payer MEDICARE, BC, OTHER ==
[2018-09-09] VITALS (20 sets, daily range): BP systolic 88–124; BP diastolic 41–74
[~2018-09-09] VITALS: Ht 165.1 cm; Wt 88.6 kg
[~2018-09-09 10:48] MED LIST changes: +ALBU2.5V8 INH; +HYDR-2145 PO; +OMEP20CA9 PO; +TRIA15CR50 TP
--- NOTE | 2018-09-09 11:17 | PHYS DOC ---
Past History Past Medical History: Cancer, Diabetes, High Cholesterol, Hypertension Past Surgical History: Appendectomy, Cancer Surgery, Tonsillectomy Alcohol Use: None Drug Use: None Adult General Chief Complaint Chief Complaint: CHEST PAIN HPI HPI 83-year-old female who is a resident of [facility] receiving IV antibiotics secondary to a recent bout of sepsis presents today secondary to chest pain. She states the staff were getting her ready to exercise when she felt as if await was sitting on her chest. She states this resolved rather quickly. Currently, she has no pain in her chest. She denies any nausea or vomiting. She denies any shortness of breath or dyspnea on exertion. She states she had an ultrasound of her legs done today which did not show a blood clot. She denies any cough or congestion. She denies fever chills or sweats.[] Review of Systems Review of Systems Constitutional: Denies fever or chills [] Eyes: Denies change in visual acuity, redness, or eye pain [] HENT: Denies nasal congestion or sore throat [] Respiratory: Denies cough or shortness of breath [] Cardiovascular: No additional information not addressed in HPI [] GI: Denies abdominal pain, nausea, vomiting, bloody stools or diarrhea [] : Denies dysuria or hematuria [] Musculoskeletal: Denies back pain or joint pain [] Integument: Denies rash or skin lesions [] Neurologic: Denies headache, focal weakness or sensory changes [] Endocrine: Denies polyuria or polydipsia [] All other systems were reviewed and found to be within normal limits, except as documented in this note. Allergies Allergies Allergies Coded Allergies Type Severity Reaction Last Updated Verified Penicillins Allergy Severe 08/22/18 Yes Sulfa (Sulfonamide Antibiotics) Allergy Severe 03/07/16 Yes I S O L A T I O N *CONTACT* Allergy Unknown 08/24/18 Yes erythromycin base Allergy Unknown 09/09/18 Yes ibuprofen Allergy Unknown 09/09/18 Yes tetracycline Allergy Unknown 09/09/18 Yes Physical Exam Physical Exam Constitutional: Elderly, frail but in no significant distress. [] HENT: Normocephalic, atraumatic, bilateral external ears normal, oropharynx moist, no oral exudates, nose normal. [] Eyes: PERRLA, EOMI, conjunctiva normal, no discharge. [] Neck: Normal range of motion, no tenderness, supple, no stridor. [] Cardiovascular:Heart rate regular rhythm, no murmur [] Lungs & Thorax: Bilateral breath sounds clear to auscultation [] Abdomen: Bowel sounds normal, soft, no tenderness, no masses, no pulsatile masses. [] Skin: Wounds dressed on the lower extremities[] Back: No tenderness, no CVA tenderness. [] Extremities: No tenderness, no cyanosis, no clubbing, ROM intact, no edema. [] Neurologic: Alert and oriented X 3, normal motor function, normal sensory function, no focal deficits noted. [] Psychologic: Anxious[] Current Patient Data Vital Signs Vital Signs Date Time Temp Pulse Resp B/P (MAP) Pulse Ox O2 Delivery O2 Flow Rate FiO2 09/09/18 11:02 97.9 128 18 100 Room Air EKG EKG EKG: Atrial fibrillation rate of [address]-T changes[] Radiology/Procedures Radiology/Procedures [] Impressions: PROCEDURE: CHEST AP ONLY EXAM: Chest, single view. HISTORY: Chest pain. COMPARISON: 08/22/2018 FINDINGS: A frontal view of the chest is obtained. There is mild diffuse central predominant increased interstitial opacity. There are suspected trace pleural effusions. There is no pneumothorax. There is a prominent cardiac silhouette. There are right axillary clips. There are vertebral compression fractures and vertebroplasty changes. IMPRESSION: 1. Diffuse central predominant increased interstitial opacity suggesting trace congestion. There may be superimposed trace pleural effusions. 2. Stable prominent cardiac silhouette. Course & Med Decision Making Course & Med Decision Making Pertinent Labs and Imaging studies reviewed. (See chart for details) [ED course: Evaluation reveals an 83-year-old female who presents with chest pain and tachycardia. Her EKG showed atrial fibrillation. She was given 20 mg of Cardizem which did slow her rate into the 90s. She had no chest pain during her stay here. I spoke with Dr. Vargas who agreed to accept the patient for admission to the hospital for further evaluation and treatment.] CRITICAL CARE: Time spent was 35 minutes. This includes medical management, evaluation, reevaluation, discussion with consultants and family. Critical Care does NOT include time spent on separately billed procedures. Dragon Disclaimer Dragon Disclaimer This electronic medical record was generated, in whole or in part, using a voice recognition dictation system. Departure Departure: Impression: Primary Impression: Rapid atrial fibrillation Additional Impression: Chest pain Disposition: 09 ADMITTED INPATIENT Admitting Physician: Pennie Seymour Condition: IMPROVED Referrals: BETTY LOTT MD (PCP) Problem Qualifiers Additional Impression: Chest pain Chest pain type: unspecified Qualified Codes: R07.9 - Chest pain, unspecified MARYLU UMANA DO Sep 09, 2018 11:17
[2018-09-09] MEDS ORDERED: dilTIAZem 25 MG/5 ML VIAL IVP ONE (11:30)
--- NOTE | 2018-09-09 11:35 | RAD ---
EXAM: Chest, single view. HISTORY: Chest pain. COMPARISON: 08/22/2018 FINDINGS: A frontal view of the chest is obtained. There is mild diffuse central predominant increased interstitial opacity. There are suspected trace pleural effusions. There is no pneumothorax. There is a prominent cardiac silhouette. There are right axillary clips. There are vertebral compression fractures and vertebroplasty changes. IMPRESSION: 1. Diffuse central predominant increased interstitial opacity suggesting trace congestion. There may be superimposed trace pleural effusions. 2. Stable prominent cardiac silhouette. Electronically signed by: Sarahi Ojeda MD (09/09/2018 11:32 AM) [id number]
[2018-09-09 11:39] LABS: BASO % 1 % (0-3); EOS % 0 % (0-3); HEMATOCRIT 26.5 % (36.0-47.0); HEMOGLOBIN 8.3 g/dL (12.0-15.5); LYMPH # 0.4 x10^3/uL (1.0-4.8); LYMPH % 7 % (24-48); MEAN CORPUSCULAR HEMOGLOBIN 29 pg (25-35); MEAN CORPUSCULAR HGB CONC 31 g/dL (31-37); MEAN CORPUSCULAR VOLUME 93 fL (79-100); MONO # 0.4 x10^3/uL (0.0-1.1); MONO % 7 % (0-9); NEUT # 4.7 x10^3uL (1.8-7.7); NEUT % 86 % (31-73); PLATELET COUNT 161 x10^3/uL (140-400); RED BLOOD COUNT 2.83 x10^6/uL (3.50-5.40); RED CELL DISTRIBUTION WIDTH 15.3 % (11.5-14.5); WHITE BLOOD COUNT 5.5 x10^3/uL (4.0-11.0)
[2018-09-09 11:54] LABS: ALBUMIN 2.1 g/dL (3.4-5.0); ALBUMIN/GLOBULIN RATIO 0.6 (1.0-1.7); CALCIUM 7.6 mg/dL (8.5-10.1); CREATININE 1.5 mg/dL (0.6-1.0); POTASSIUM 4.3 mmol/L (3.5-5.1); TOTAL BILIRUBIN 0.2 mg/dL (0.2-1.0); TOTAL PROTEIN 5.4 g/dL (6.4-8.2)
[2018-09-09] MEDS ORDERED: ONDANSETRON PF 4 MG/2 ML VIAL. IV PRN ×2 (12:00→13:45)
[2018-09-09] MEDS ORDERED: dilTIAZem VIAL 125 MG in IV DEXTROSE 5% 100 ML IV PRN (14:00)
[2018-09-09] MEDS: VANCOMYCIN PER PHARMACY MC PRN (14:04)
[2018-09-09] MEDS ORDERED: LIDOCAINE 1% Multi-Dose 20 ML VIAL. ONE (14:15)
[2018-09-09] MEDS ORDERED: LIDOCAINE 1% Multi-Dose 20 ML VIAL. IJ ONE (14:15)
--- NOTE | 2018-09-09 14:29 | HP ---
ADMIT DATE: 09/09/2018 HISTORY OF PRESENT ILLNESS: The patient is an 83-year-old female patient who was admitted recently to [facility] as a transfer from [facility] in [place]. She was seen at this hospital on 08/22/2018 and was transferred to [facility] per family request on 08/23/2018. She was at the [facility] for about 10 days and from there, she was transferred to [facility]. She was originally seen here with bilateral lower extremity cellulitis, [id number] kidney injury and urinary tract infection and she was treated at that time with IV fluid, IV antibiotic in the form of vancomycin, meropenem, and at that time, she was positive for both influenza A and B and was treated with Tamiflu and was transferred to [facility] where she completed IV antibiotic and Tamiflu. She was actually on oral antibiotic at [facility] and yesterday she completed the antibiotic and was supposed to be starting today on doxycycline twice a day for 2 weeks. She has bilateral lower extremity cellulitis, worse on the right. She has also what seemed to be ischemic ulcers on both lower extremities for which I ordered arterial Doppler ultrasound yesterday at [facility]. Unfortunately, she apparently developed chest pain. The patient stated that the staff was getting her ready to exercise when she felt as if her weight was sitting on her chest and that has lasted about 20-25 minutes, during which she denied any nausea or vomiting. Denied any diaphoresis or shortness of breath. Denied any radiation. She had had an ultrasound of her both lower extremities, but what I ordered was arterial Doppler ultrasound. She seemed to have ischemic ulcers in both lower extremities. She came to the Emergency Room and was found to be in apparently atrial fibrillation with rapid ventricular response. She did receive a bolus of diltiazem 20 mg and was admitted to ICU to continue with the Cardizem drip and to consult the hand cementer. PAST MEDICAL HISTORY: Significant for type 2 diabetes mellitus, hypertension, hyperlipidemia, generalized osteoarthritis. She has a history of breast cancer, uterine cancer, and skin cancer. She apparently is known to have atrial fibrillation since 2018 and for which she is on apixaban and diltiazem. PAST SURGICAL HISTORY: Significant for left total knee arthroplasty, right lumpectomy with radiation and chemotherapy 20 years ago. She has partial hysterectomy 30 years ago. She has bilateral cataract extraction, tonsillectomy, appendectomy, esophagogastroduodenoscopy and colonoscopy. ALLERGIES: SHE IS ALLERGIC TO PENICILLIN, SULFA DRUGS, ERYTHROMYCIN, IBUPROFEN, TETRACYCLINE. MEDICATIONS: She is currently on diltiazem 120 mg daily, omeprazole 20 mg twice a day, acetaminophen 650 mg every 4 hours as needed, pioglitazone 30 mg daily, Eliquis 5 mg twice a day, cefpodoxime 200 mg twice a day, clindamycin 300 mg twice a day, metronidazole 500 mg every 8 hours. She is on albuterol sulfate 2 puffs 4 times a day, Ambien 5 mg at bedtime. She is on Humalog insulin as per insulin sliding scale. She is on Lantus insulin 25 units at bedtime and Tylenol with Codeine 1 tablet every 6 hours as needed. FAMILY HISTORY: She has one brother who at age of 26 in a car accident. Her sister is 4 years younger and has 2 knees replaced. Her father at age of 81 because of what seemed to have severe peripheral vascular disease. Mother at the age of 68 because of surgical complication. SOCIAL HISTORY: She is , has 4 daughters and 1 son. One daughter and one son have both . She has never smoked, does not drink alcohol or use any recreational drugs. REVIEW OF SYSTEMS: As per history of present illness. PHYSICAL EXAMINATION: GENERAL: On arrival to the Emergency Room, the patient looked well and was clearly in no apparent respiratory distress. She was pale, but no jaundice, cyanosis or thyromegaly. No jugular distention. She does have mild bilateral lower limb edema. VITAL SIGNS: Her heart rate was 150, temperature was 97.9, respiratory rate was 18 and oxygen saturation was 100% on room air. HEAD, EYES, EARS, NOSE AND THROAT: Showed normocephalic, atraumatic. NECK: Supple. HEART: Showed normal first and second heart sounds. No gallop, rub or murmur. CHEST: Clear to auscultation. No crepitation or rhonchi. ABDOMEN: Distended, soft, nontender. No guarding or rigidity. No organomegaly. All hernial orifices are intact. Bowel sounds are normal. NEUROLOGIC: She is awake, alert, responding appropriately. All cranial nerves are intact. EXTREMITIES: She moves extremities without difficulty. However, she is mostly bedbound, chair bound. She has multiple wounds of both lower extremities. LABORATORY DATA: Her lab work this morning showed a white cell count 5500, hemoglobin 8.3, hematocrit 26.5, MCV 93, and platelet count of 161,000. Her serum sodium was 144, potassium 4.3, chloride 109, bicarbonate 28, anion gap of 7, BUN 50, creatinine 1.5, estimated GFR was 33 mL per minute. Her glucose 122, calcium was 7.6. Total bilirubin, AST, ALT, alkaline phosphatase were normal. Total protein was 5.4, albumin 2.1, estimated troponin was less than 0.017. Her chest x-ray showed that the diffuse central predominant increased interstitial opacity suggesting trace congestion. There may be superimposed trace pleural effusion. Stable prominent cardiac silhouette. IMPRESSION AND PLAN: In summary, this is an 83-year-old female patient who was admitted through the Emergency Room with chest pressure that lasted about 25 minutes. She was found to be in atrial fibrillation with rapid ventricular response for which she was given a bolus of Cardizem. She was admitted to ICU. We will continue the Cardizem drip at 5 mg per hour. We will continue with all her other medications and do 2 more sets of cardiac enzyme. We will consult the hand cementer as well as the wound care team. She did have arterial Doppler ultrasound at [facility]. I will contact that facility to get the results of that testing. GEOFFREY MARTI MD DR: JOSHUA/carlos JOB#: [id number] / [id number]
[2018-09-09] MEDS: MEROPENEM 500 MG in IV NORMAL SALINE 50ML 50 ML IV SCH ×2 (14:42→21:49)
[2018-09-09] MEDS ORDERED: VANCOMYCIN 2 GM in IV NORMAL SALINE 500ML 500 ML IV ONE (15:00)
[2018-09-09] MEDS ORDERED: DIGOXIN IV 500 MCG/2 ML AMPUL. IV ONE (16:00)
[2018-09-09] MEDS ORDERED: FUROSEMIDE 40 MG/4 ML VIAL IVP ONE (17:00)
[2018-09-09] MEDS: METOPROLOL TART IMMED RELEASE 25 MG TABLET PO SCH (18:00)
[2018-09-09] MEDS ORDERED: INSU100C4 SQ (19:02)
[2018-09-09] MEDS ORDERED: ACET-704 PO (19:02)
[2018-09-09] MEDS ORDERED: INSU100I13 SQ (19:02)
[2018-09-09 19:07] LABS: BACTERIA,URINE 0 /HPF (0-FEW); BILIRUBIN,URINE NEG (NEG); CLARITY,URINE TURBID; COLOR,URINE PINK; GLUCOSE,URINE 250 mg/dL (NEG); NITRITE,URINE NEG (NEG); UROBILINOGEN,URINE 0.2 mg/dL (0.2 mg/dL)
[2018-09-09 19:08] LABS: YEAST,URINE PRESENT /HPF
[2018-09-09] MEDS ORDERED: DEXTROSE 50% 25 GM / 50ML DISP.SYRIN. IV PRN ×2 (19:15)
[2018-09-09] MEDS ORDERED: ACETAMINOPHEN/CODEINE 300/30MG TABLET PO PRN (19:30)
[2018-09-09] MEDS: APIXABAN 5 MG TABLET. PO SCH (19:51)
[2018-09-09] MEDS: ZOLPIDEM 5 MG TABLET. PO SCH (21:49)
--- NOTE | 2018-09-09 22:43 | PDOC ---
PROVIDER NOTE PROVIDER NOTE PROVIDER NOTE CARDIOLOGY CONSULTATION NOTE REASON FOR CONSULTATION: HEART FAILURE: HPI; Pleasant 83 y.o woman who apparently was in her usual state of health up until a few weeks ago presents to the hospital with continued debility and dyspnea. She was recently discharged and has been transferred to multiple different facilities after being diagnosed with pneumonia and influenza. The patient at baseline denies any specific cardiac symptoms and apparently she was in [place] about 6 weeks ago where she was able to walk and drive on her own without significant limitations. She is now mostly in a bed and having difficulty with basic tasks. She denies any syncope or palpitations. Cardiology was asked to comment on her history of atrial fibrillation and lower extremity edema. Past medical history: 1. Persistent atrial fibrillation on anticoagulation 2. Hypertension 3. Diabetes Social history: Denies any alcohol, tobacco or illicit drug use. Allergies to multiple different agents as noted in the chart Current cardiac medications: Lasix, digoxin, fenofibrate, Eliquis, metoprolol and diltiazem Physical examination Vital signs stable She is an elderly woman who is obese and frail and lying in bed in mild distress from weakness Heart tones are irregular Lungs are notable for decreased breath sounds and rales Obese protuberant abdomen Neurologically she is weak in the lower extremities but symmetric 1+ pitting edema is noted She has bilateral skin wounds and erosions on her buttocks and her shins. She is an poor spirits overall Laboratory studies are notable for anemia with a hemoglobin of 8.2, elevated BNP Echocardiogram was within normal limits in November 2017. Stress test in November 2017 was minimally abnormal. Overall low risk studies. Impression: 1. Persistent atrial fibrillation and decompensated heart failure, likely diastolic Recommendations: 1. Continue rate control agents as noted above and diuresis. If after improvement in her debility she has any lifestyle limiting symptoms good at that time consider further ischemic evaluation. Initial troponin negative. Supportive care for now. Okay to restart Eliquis therapy as her hemoglobin is stable. Risks and benefits discussed with the patient and her family. DARIEN ORTEGA MD Sep 09, 2018 22:43
[2018-09-10] VITALS (14 sets, daily range): BP systolic 101–136; BP diastolic 48–73
[2018-09-10] MEDS: METOPROLOL TART IMMED RELEASE 25 MG TABLET PO SCH ×4 (00:52→17:46)
[2018-09-10] MEDS: MEROPENEM 500 MG in IV NORMAL SALINE 50ML 50 ML IV SCH ×3 (05:04→21:03)
[2018-09-10] MEDS: INSULIN LISPRO 300 UNITS/3 ML INSULN.PEN. SQ SCH ×3 (08:00→17:03)
[2018-09-10] MEDS ORDERED: INSULIN GLARGINE 300 UNITS/3 ML INSULN.PEN. SQ SCH ×2 (09:00→21:00)
[2018-09-10] MEDS: APIXABAN 5 MG TABLET. PO SCH ×2 (09:00→21:03)
--- NOTE | 2018-09-10 09:34 | PDOC ---
PROGRESS NOTES Diagnosis Problem Problems Medical Problems: (1) Chest pain Status: Acute (2) Chest pain Status: Acute (3) Rapid atrial fibrillation Status: Acute Assessment Problems Medical Problems: (1) Chest pain Status: Acute (2) Chest pain Status: Acute (3) Rapid atrial fibrillation Status: Acute 1. chest pain - CE negative. minimal apical lateral ischemic noted on MPI last year. Continue medical mgmt at this time. 2. acute on chronic diastolic heart failure - continue gentle diuresis, await post PICC implant CXR 3. atrial fibrillation - rate control improving. unable to tolerate IV cardizem. Continue oral CCB, digoxin and beta maria teresa. Eliquis on hold due to anemia. 4. cellulitis and possible ischemic ulcers - suggest arterial duplex if not done 5. Anemia - Hgb 8.0 today, (10.3 on 08/22) Eliquis currently held, suggest heme checks. monitor. 5. hypertension - hypotension yesterday. BP improved today. continue to monitor with antihypertensives and diuretics. 6. hyperlipidemia - check lipids, continue Rx Subjective no chest pain, breathing 5% better, continued edema, no palpitations. Objective Vital Signs Date Time Temp Pulse Resp B/P (MAP) Pulse Ox O2 Delivery O2 Flow Rate FiO2 09/10/18 05:30 98.5 99 30 111/62 (78) 97 Nasal Cannula 2.0 Intake and Output 09/10/18 07:00 Intake Total 1345 ml Output Total 2275 ml Balance -930 ml Intake Oral 680 ml IV Total 665 ml Output Urine Total 2275 ml Physical Exam gen: awake and alert, no acute distress CV: IRR without gallops Lungs: bibasilar crackles right base > left abd: soft, non tender, +BS ext - + bilateral edema, dressings intact Review of Relevant I have reviewed the following items kassandra (where applicable) has been applied. Labs Laboratory Tests Test 09/09/18 11:26 09/09/18 16:27 09/09/18 18:43 09/09/18 20:47 White Blood Count 5.5 x10^3/uL (4.0-11.0) Red Blood Count 2.83 x10^6/uL (3.50-5.40) Hemoglobin 8.3 g/dL (12.0-15.5) Hematocrit 26.5 % (36.0-47.0) Mean Corpuscular Volume 93 fL (79-100) Mean Corpuscular Hemoglobin 29 pg (25-35) Mean Corpuscular Hemoglobin Concent 31 g/dL (31-37) Red Cell Distribution Width 15.3 % (11.5-14.5) Platelet Count 161 x10^3/uL (140-400) Neutrophils (%) (Auto) 86 % (31-73) Lymphocytes (%) (Auto) 7 % (24-48) Monocytes (%) (Auto) 7 % (0-9) Eosinophils (%) (Auto) 0 % (0-3) Basophils (%) (Auto) 1 % (0-3) Neutrophils # (Auto) 4.7 x10^3uL (1.8-7.7) Lymphocytes # (Auto) 0.4 x10^3/uL (1.0-4.8) Monocytes # (Auto) 0.4 x10^3/uL (0.0-1.1) Eosinophils # (Auto) 0.0 x10^3/uL (0.0-0.7) Basophils # (Auto) 0.0 x10^3/uL (0.0-0.2) Sodium Level 144 mmol/L (136-145) Potassium Level 4.3 mmol/L (3.5-5.1) Chloride Level 109 mmol/L (98-107) Carbon Dioxide Level 28 mmol/L (21-32) Anion Gap 7 (6-14) Blood Urea Nitrogen 50 mg/dL (7-20) Creatinine 1.5 mg/dL (0.6-1.0) Estimated GFR (Cockcroft-Gault) 33.0 BUN/Creatinine Ratio 33 (6-20) Glucose Level 122 mg/dL (70-99) Calcium Level 7.6 mg/dL (8.5-10.1) Total Bilirubin 0.2 mg/dL (0.2-1.0) Aspartate Amino Transf (AST/SGOT) 11 U/L (15-37) Alanine Aminotransferase (ALT/SGPT) 14 U/L (14-59) Alkaline Phosphatase 54 U/L (46-116) Troponin I Quantitative < 0.017 ng/mL (0-0.055) Total Protein 5.4 g/dL (6.4-8.2) Albumin 2.1 g/dL (3.4-5.0) Albumin/Globulin Ratio 0.6 (1.0-1.7) Glucose (Fingerstick) 247 mg/dL (70-99) 331 mg/dL (70-99) Urine Collection Type U cath Urine Color [place] Urine Clarity Turbid Urine pH 5.5 Urine Specific [place] 1.010 Urine Protein 30 mg/dl (NEG-TRACE) Urine Glucose (UA) 250 mg/dL (NEG) Urine Ketones (Stick) Neg mg/dL (NEG) Urine Blood Large (NEG) Urine Nitrite Neg (NEG) Urine Bilirubin Neg (NEG) Urine Urobilinogen Dipstick 0.2 mg/dL (0.2 mg/dL) Urine Leukocyte Esterase Large (NEG) Urine RBC 1-2 /HPF (0-2) Urine WBC 5-10 /HPF (0-4) Urine Squamous Epithelial Cells None /LPF Urine Bacteria 0 /HPF (0-FEW) Urine Yeast Present /HPF Test 09/10/18 07:38 Glucose (Fingerstick) 168 mg/dL (70-99) Medications Current Medications Diltiazem HCl (Cardizem Iv Push) 20 mg 1X ONCE IVP Last administered on at 11:33; Start 09/09/18 at 11:30; Stop 09/09/18 at 11:34; Status DC Ondansetron HCl (Zofran) 4 mg PRN Q4HRS PRN IV NAUSEA/VOMITING; Start 09/09/18 at 12:00; Stop 09/10/18 at 11:59; Status Cancel Ondansetron HCl (Zofran) 4 mg PRN Q8HRS PRN IV NAUSEA/VOMITING; Start 09/09/18 at 13:45 Diltiazem HCl 125 mg/Dextrose 125 ml @ 5 mls/hr CONT PRN IV SEE I/O RECORD Last administered on 09/09/18at 13:00; Start 09/09/18 at 14:00 Vancomycin HCl (Vanco Per Pharmacy) 1 each PRN DAILY PRN MC SEE COMMENTS Last administered on 09/09/18at 14:04; Start 09/09/18 at 14:00 Meropenem 500 mg/ Sodium Chloride 50 ml @ 100 mls/hr Q8HRS IV Last administered on 09/10/18at 05:04; Start 09/09/18 at 14:00 Vancomycin HCl 2 gm/Sodium Chloride 500 ml @ 250 mls/hr 1X ONCE IV Last administered on 09/09/18at 16:02; Start 09/09/18 at 15:00; Stop 09/09/18 at 16:59 ; Status DC Vancomycin HCl 1.5 gm/Sodium Chloride 500 ml @ 250 mls/hr Q24H IV ; Start 09/10 at 15:00 Vancomycin HCl (Vancomycin Trough Level) 1 each 1X ONCE MC ; Start 09/11/18 at 14:30; Stop 09/11/18 at 14:31 Lidocaine HCl 20 ml 1X ONCE IJ Last administered on 09/09/18at 14:43; Start at 14:15; Stop 09/09/18 at 14:19; Status DC Lidocaine HCl 20 ml STK-MED ONCE .ROUTE ; Start 09/09/18 at 14:15; Stop at 14:16; Status DC Digoxin (Lanoxin) 500 mcg 1X ONCE IV Last administered on 09/09/18at 16:03; Start 09/09/18 at 16:00; Stop 09/09/18 at 16:01; Status DC Metoprolol Tartrate (Lopressor) 25 mg Q6HRS PO ; Start 09/09/18 at 18:00 Furosemide (Lasix) 40 mg 1X ONCE IVP Last administered on 09/09/18at 17:38; Start 09/09/18 at 17:00; Stop 09/09/18 at 17:01; Status DC Insulin Glargine (Lantus) 25 units DAILY SQ Last administered on 09/09/18at 21: 53; Start 09/10/18 at 09:00 Acetaminophen/ Codeine Phosphate (Tylenol #3) 1 tab PRN Q6HRS PRN PO PAIN; Start 09/09/18 at 19:30 Apixaban (Eliquis) 5 mg BID PO ; Start 09/09/18 at 21:00 Diltiazem HCl (Cardizem 24hr Cd) 120 mg DAILY PO ; Start 09/10/18 at 09:00 Fenofibrate (Tricor) 145 mg DAILY PO ; Start 09/10/18 at 09:00 Pantoprazole Sodium (Protonix) 40 mg DAILY PO ; Start 09/10/18 at 09:00 Pioglitazone HCl (Actos) 30 mg DAILYBFRLUN PO ; Start 09/10/18 at 11:30 Zolpidem Tartrate (Ambien) 5 mg HS PO Last administered on 09/09/18at 21:49; Start 09/09/18 at 21:00 Dextrose 12.5 gm PRN Q15MIN PRN IV SEE COMMENTS; Start 09/09/18 at 19:15 Insulin Human Lispro (HumaLOG) 0-7 UNITS TIDWMEALS SQ ; Start 09/10/18 at 08:00 Dextrose 12.5 gm PRN Q15MIN PRN IV SEE COMMENTS; Start 09/09/18 at 19:15; Status UNV Active Scripts Active Eliquis (Apixaban) 5 Mg Tablet 5 Mg PO BID 60 Days Diltiazem 24HR Cd (Diltiazem Hcl) 120 Mg Cap.er.24h 1 Cap PO DAILY Reported Tylenol With Codeine #3 Tablet (Acetaminophen With Codeine) 1 Each Tablet 1 Tab PO Q6HRS PRN Novolog (Insulin Aspart) 100 Unit/1 Ml Cartridge 0 SQ QIDACHS PRN Lantus Solostar (Insulin Glargine,Hum.rec.anlog) 100 Unit/1 Ml Insuln.pen 25 Unit SQ DAILY Triamcinolone Acetonide 15 Gm Cream..g. 1 Dario TP BID Proventil Hfa Inhaler (Albuterol Sulfate) 6.7 Gm Hfa.aer.ad 1 Puff INH PRN Q4HRS PRN Omeprazole 20 Mg Capsule.dr 1 Cap PO DAILY Actos (Pioglitazone Hcl) 30 Mg Tablet 1 Tab PO DAILYBFRLUN Zolpidem Tartrate 10 Mg Tablet 0.5 Tab PO QHS Fenofibrate 160 Mg Tablet 1 Tab PO DAILY Vitals/I & O Vital Sign - Last 24 Hours 09/09/18 09/09/18 09/09/18 09/09/18 11:02 11:33 11:47 12:33 Temp 97.9 Pulse 128 123 97 98 Resp 18 10 18 B/P (MAP) 136/67 136/67 (90) 126/65 (85) Pulse Ox 100 97 98 O2 Delivery Room Air Room Air Room Air 09/09/18 09/09/18 09/09/18 09/09/18 13:26 14:00 15:00 16:00 Temp 98.4 Pulse 101 102 94 104 Resp 18 34 32 28 B/P (MAP) 117/67 (84) 111/65 (80) 107/74 (85) 104/62 (76) Pulse Ox 98 98 98 98 O2 Delivery Room Air Room Air Room Air Room Air 09/09/18 09/09/18 09/09/18 09/09/18 16:03 17:00 18:00 18:00 Pulse 110 112 110 102 Resp 28 28 B/P (MAP) 121/68 (85) 93/47 93/51 (65) Pulse Ox 100 100 O2 Delivery Nasal Cannula Nasal Cannula O2 Flow Rate 2.0 2.0 09/09/18 09/09/18 09/09/18 09/09/18 18:30 18:45 19:15 19:45 Temp 98.6 Pulse 110 104 102 96 Resp 28 B/P (MAP) 99/51 (67) 102/50 (67) 99/43 (61) 93/50 (64) Pulse Ox 100 99 100 100 O2 Delivery Nasal Cannula Nasal Cannula Nasal Cannula Nasal Cannula O2 Flow Rate 2.0 2.0 2.0 2.0 09/09/18 09/09/18 09/09/18 09/09/18 20:30 20:30 20:40 21:00 Pulse 98 104 100 B/P (MAP) 115/58 (77) 88/41 (57) 109/52 (71) Pulse Ox 100 100 O2 Delivery Nasal Cannula Nasal Cannula Nasal Cannula O2 Flow Rate 2.0 2.0 2.0 09/09/18 09/09/18 09/09/18 09/09/18 21:15 21:30 21:47 22:00 Pulse 102 100 98 B/P (MAP) 89/65 (73) 112/60 (77) 110/67 (81) 94/49 (64) Pulse Ox 100 100 100 O2 Delivery Nasal Cannula Nasal Cannula Nasal Cannula O2 Flow Rate 2.0 2.0 2.0 09/09/18 09/09/18 09/09/18 09/09/18 22:30 23:15 23:30 23:45 Temp 97.9 Pulse 100 106 102 Resp 24 B/P (MAP) 108/65 (79) 124/54 (77) 114/50 (71) Pulse Ox 99 99 99 O2 Delivery Nasal Cannula Nasal Cannula Nasal Cannula Nasal Cannula O2 Flow Rate 2.0 2.0 2.0 2.0 09/10/18 09/10/18 09/10/18 09/10/18 00:33 00:52 01:33 02:33 Pulse 84 85 88 Resp 32 30 B/P (MAP) 101/62 (75) 101/62 109/48 (68) 116/73 (87) Pulse Ox 96 97 O2 Delivery Nasal Cannula Nasal Cannula O2 Flow Rate 2.0 2.0 09/10/18 09/10/18 09/10/18 09/10/18 03:39 04:32 05:30 05:30 Temp 98.5 Pulse 101 90 99 Resp 32 30 B/P (MAP) 113/49 (70) 114/65 (81) 111/62 (78) Pulse Ox 96 97 O2 Delivery Nasal Cannula Nasal Cannula Nasal Cannula O2 Flow Rate 2.0 2.0 2.0 Intake and Output 09/09/18 09/09/18 09/10/18 15:00 23:00 07:00 Intake Total 240 ml 1055 ml 50 ml Output Total 775 ml 1500 ml Balance 240 ml 280 ml -1450 ml TING SOLANO APRN Sep 10, 2018 09:34
[2018-09-10] MEDS: PANTOPRAZOLE 40 MG TABLET. PO SCH (10:46)
[2018-09-10] MEDS: PIOGLITAZONE 15 MG TABLET. PO SCH (10:46)
[2018-09-10] MEDS: FENOFIBRATE NANOCRYSTALLIZED 145 MG TABLET PO SCH (10:46)
--- NOTE | 2018-09-10 10:47 | RAD ---
CHEST AP ONLY Clinical Indication: PICC LINE PLACEMENT Comparison: AP chest September 09, 2018. Findings: There is left PICC, tip in distal SVC. The cardiomediastinal silhouette is stable. Lungs are clear. There is no pneumothorax. No definite pleural effusion is seen. Degenerative arthropathy of the shoulders. Multilevel vertebroplasties, better seen on prior study. Right axillary surgical clips. IMPRESSION: Left PICC tip in distal SVC. Electronically signed by: Orlando Santiago MD (09/10/2018 10:44 AM) [id number]
[2018-09-10 11:11] LABS: HEMATOCRIT 25.1 % (36.0-47.0); RED BLOOD COUNT 2.7 x10^6/uL (3.50-5.40); RED CELL DISTRIBUTION WIDTH 15.1 % (11.5-14.5); WHITE BLOOD COUNT 3.9 x10^3/uL (4.0-11.0)
[2018-09-10 11:17] LABS: ALBUMIN 1.8 g/dL (3.4-5.0); ALBUMIN/GLOBULIN RATIO 0.6 (1.0-1.7); CREATININE 1.2 mg/dL (0.6-1.0); GFR 42.7; POTASSIUM 4.5 mmol/L (3.5-5.1); TOTAL BILIRUBIN 0.3 mg/dL (0.2-1.0); TOTAL PROTEIN 4.9 g/dL (6.4-8.2)
[2018-09-10] MEDS: FUROSEMIDE 20 MG/2 ML VIAL IVP SCH (12:11)
[2018-09-10] MEDS: DIGOXIN 125 MCG TABLET PO SCH (12:12)
--- NOTE | 2018-09-10 12:43 | EKG ---
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
[2018-09-10] MEDS: VANCOMYCIN 1.5 GM in IV NORMAL SALINE 500ML 500 ML IV SCH (15:19)
[2018-09-10] MEDS: ZOLPIDEM 5 MG TABLET. PO SCH (21:03)
[2018-09-11] MEDS: METOPROLOL TART IMMED RELEASE 25 MG TABLET PO SCH ×2 (00:23→05:28)
[2018-09-11 00:25] VITALS: BP 120/62
[2018-09-11 02:40] VITALS: BP 104/50
[2018-09-11 05:20] VITALS: BP 116/57
[2018-09-11] MEDS: MEROPENEM 500 MG in IV NORMAL SALINE 50ML 50 ML IV SCH ×2 (05:27→14:22)
[2018-09-11 06:34] LABS: HEMATOCRIT 24.3 % (36.0-47.0)
[2018-09-11 06:44] LABS: CREATININE 1.3 mg/dL (0.6-1.0); GFR 38.9; POTASSIUM 4.2 mmol/L (3.5-5.1)
[2018-09-11] MEDS: INSULIN LISPRO 300 UNITS/3 ML INSULN.PEN. SQ SCH ×2 (08:00→11:24)
[2018-09-11] MEDS ORDERED: FUROSEMIDE 20 MG/2 ML VIAL IVP SCH (09:00)
[2018-09-11] MEDS ORDERED: LACTOBACILLUS RHAMNOSUS GG 1 CAPSULE. PO SCH (09:00)
[2018-09-11] MEDS: FUROSEMIDE 20 MG/2 ML VIAL IVP SCH (09:03)
[2018-09-11] MEDS: PANTOPRAZOLE 40 MG TABLET. PO SCH (09:03)
[2018-09-11] MEDS: DIGOXIN 125 MCG TABLET PO SCH (09:04)
[2018-09-11] MEDS: FENOFIBRATE NANOCRYSTALLIZED 145 MG TABLET PO SCH (09:08)
--- NOTE | 2018-09-11 09:14 | PDOC ---
TING SOLANO [employer]IVER HEAVY 09/11/18 0914: PROGRESS NOTES Diagnosis Problem Problems Medical Problems: (1) Chest pain Status: Acute (2) Chest pain Status: Acute (3) Rapid atrial fibrillation Status: Acute Assessment Problems Medical Problems: (1) Chest pain Status: Acute (2) Chest pain Status: Acute (3) Rapid atrial fibrillation Status: Acute 1. chest pain - CE negative. minimal apical lateral ischemic noted on MPI last year. Continue medical mgmt at this time. currently angina free. 2. acute on chronic diastolic heart failure - improved with diuresis. CXR post PICC was clear. 3. atrial fibrillation - rate control fair, increase BB. Continue oral CCB, digoxin and beta maria teresa. Eliquis on hold due to anemia. 4. cellulitis and possible ischemic ulcers - suggest arterial duplex if not done 5. Anemia - Hgb 8.0 today, (10.3 on 08/22) Eliquis currently held, Hgb has remained stable over the last two days. r. 5. hypertension - hypotension yesterday. BP improved today. continue to monitor with antihypertensives and diuretics. 6. hyperlipidemia - check lipids, continue Rx awaiting arterial duplex, mgmt of cellulitis per PCP Subjective breathing a little better, no chest pain, still with edema, up in chair and tolerating well. Objective Vital Signs Date Time Temp Pulse Resp B/P (MAP) Pulse Ox O2 Delivery O2 Flow Rate FiO2 09/11/18 08:25 Nasal Cannula 2.0 09/11/18 05:28 101 116/57 09/11/18 05:20 98.4 24 98 Intake and Output 09/11/18 06:59 Intake Total 1863 ml Output Total 1825 ml Balance 38 ml Intake Oral 1080 ml IV Total 783 ml Output Urine Total 1825 ml Physical Exam gen: A+O, mild dyspnea CV IRR, no gallops, clicks or rubs lungs: decreased throughout abd obese, +BS ext +edema, right>left Review of Relevant I have reviewed the following items kassandra (where applicable) has been applied. Labs Laboratory Tests Test 09/09/18 11:26 09/09/18 16:27 09/09/18 18:43 09/09/18 20:47 White Blood Count 5.5 x10^3/uL (4.0-11.0) Red Blood Count 2.83 x10^6/uL (3.50-5.40) Hemoglobin 8.3 g/dL (12.0-15.5) Hematocrit 26.5 % (36.0-47.0) Mean Corpuscular Volume 93 fL (79-100) Mean Corpuscular Hemoglobin 29 pg (25-35) Mean Corpuscular Hemoglobin Concent 31 g/dL (31-37) Red Cell Distribution Width 15.3 % (11.5-14.5) Platelet Count 161 x10^3/uL (140-400) Neutrophils (%) (Auto) 86 % (31-73) Lymphocytes (%) (Auto) 7 % (24-48) Monocytes (%) (Auto) 7 % (0-9) Eosinophils (%) (Auto) 0 % (0-3) Basophils (%) (Auto) 1 % (0-3) Neutrophils # (Auto) 4.7 x10^3uL (1.8-7.7) Lymphocytes # (Auto) 0.4 x10^3/uL (1.0-4.8) Monocytes # (Auto) 0.4 x10^3/uL (0.0-1.1) Eosinophils # (Auto) 0.0 x10^3/uL (0.0-0.7) Basophils # (Auto) 0.0 x10^3/uL (0.0-0.2) Sodium Level 144 mmol/L (136-145) Potassium Level 4.3 mmol/L (3.5-5.1) Chloride Level 109 mmol/L (98-107) Carbon Dioxide Level 28 mmol/L (21-32) Anion Gap 7 (6-14) Blood Urea Nitrogen 50 mg/dL (7-20) Creatinine 1.5 mg/dL (0.6-1.0) Estimated GFR (Cockcroft-Gault) 33.0 BUN/Creatinine Ratio 33 (6-20) Glucose Level 122 mg/dL (70-99) Calcium Level 7.6 mg/dL (8.5-10.1) Total Bilirubin 0.2 mg/dL (0.2-1.0) Aspartate Amino Transf (AST/SGOT) 11 U/L (15-37) Alanine Aminotransferase (ALT/SGPT) 14 U/L (14-59) Alkaline Phosphatase 54 U/L (46-116) Troponin I Quantitative < 0.017 ng/mL (0-0.055) Total Protein 5.4 g/dL (6.4-8.2) Albumin 2.1 g/dL (3.4-5.0) Albumin/Globulin Ratio 0.6 (1.0-1.7) Glucose (Fingerstick) 247 mg/dL (70-99) 331 mg/dL (70-99) Urine Collection Type U cath Urine Color Startup Urine Clarity Turbid Urine pH 5.5 Urine Specific [place] 1.010 Urine Protein 30 mg/dl (NEG-TRACE) Urine Glucose (UA) 250 mg/dL (NEG) Urine Ketones (Stick) Neg mg/dL (NEG) Urine Blood Large (NEG) Urine Nitrite Neg (NEG) Urine Bilirubin Neg (NEG) Urine Urobilinogen Dipstick 0.2 mg/dL (0.2 mg/dL) Urine Leukocyte Esterase Large (NEG) Urine RBC 1-2 /HPF (0-2) Urine WBC 5-10 /HPF (0-4) Urine Squamous Epithelial Cells None /LPF Urine Bacteria 0 /HPF (0-FEW) Urine Yeast Present /HPF Test 09/10/18 07:38 09/10/18 10:55 09/10/18 11:17 09/10/18 16:51 Glucose (Fingerstick) 168 mg/dL (70-99) 310 mg/dL (70-99) 178 mg/dL (70-99) White Blood Count 3.9 x10^3/uL (4.0-11.0) Red Blood Count 2.70 x10^6/uL (3.50-5.40) Hemoglobin 8.0 g/dL (12.0-15.5) Hematocrit 25.1 % (36.0-47.0) Mean Corpuscular Volume 93 fL (79-100) Mean Corpuscular Hemoglobin 30 pg (25-35) Mean Corpuscular Hemoglobin Concent 32 g/dL (31-37) Red Cell Distribution Width 15.1 % (11.5-14.5) Platelet Count 135 x10^3/uL (140-400) Erythrocyte Sedimentation Rate 81 (0-25) Sodium Level 140 mmol/L (136-145) Potassium Level 4.5 mmol/L (3.5-5.1) Chloride Level 106 mmol/L (98-107) Carbon Dioxide Level 28 mmol/L (21-32) Anion Gap 6 (6-14) Blood Urea Nitrogen 40 mg/dL (7-20) Creatinine 1.2 mg/dL (0.6-1.0) Estimated GFR (Cockcroft-Gault) 42.7 BUN/Creatinine Ratio 33 (6-20) Glucose Level 356 mg/dL (70-99) Calcium Level 7.0 mg/dL (8.5-10.1) Magnesium Level 1.9 mg/dL (1.8-2.4) Total Bilirubin 0.3 mg/dL (0.2-1.0) Aspartate Amino Transf (AST/SGOT) 11 U/L (15-37) Alanine Aminotransferase (ALT/SGPT) 13 U/L (14-59) Alkaline Phosphatase 55 U/L (46-116) C-Reactive Protein 16.7 mg/L (0-3.3) PV-Lhb-M-Type Natriuretic Peptide 3966 pg/mL (0-449) Total Protein 4.9 g/dL (6.4-8.2) Albumin 1.8 g/dL (3.4-5.0) Albumin/Globulin Ratio 0.6 (1.0-1.7) Test 09/10/18 20:12 09/11/18 06:10 Glucose (Fingerstick) 286 mg/dL (70-99) Hemoglobin 8.0 g/dL (12.0-15.5) Hematocrit 24.3 % (36.0-47.0) Sodium Level 145 mmol/L (136-145) Potassium Level 4.2 mmol/L (3.5-5.1) Chloride Level 111 mmol/L (98-107) Carbon Dioxide Level 29 mmol/L (21-32) Anion Gap 5 (6-14) Blood Urea Nitrogen 35 mg/dL (7-20) Creatinine 1.3 mg/dL (0.6-1.0) Estimated GFR (Cockcroft-Gault) 38.9 Glucose Level 112 mg/dL (70-99) Calcium Level 7.0 mg/dL (8.5-10.1) Medications Current Medications Diltiazem HCl (Cardizem Iv Push) 20 mg 1X ONCE IVP Last administered on at 11:33; Start 09/09/18 at 11:30; Stop 09/09/18 at 11:34; Status DC Ondansetron HCl (Zofran) 4 mg PRN Q4HRS PRN IV NAUSEA/VOMITING; Start 09/09/18 at 12:00; Stop 09/10/18 at 11:59; Status Cancel Ondansetron HCl (Zofran) 4 mg PRN Q8HRS PRN IV NAUSEA/VOMITING; Start 09/09/18 at 13:45 Diltiazem HCl 125 mg/Dextrose 125 ml @ 5 mls/hr CONT PRN IV SEE I/O RECORD Last administered on 09/09/18at 13:00; Start 09/09/18 at 14:00 Vancomycin HCl (Vanco Per Pharmacy) 1 each PRN DAILY PRN MC SEE COMMENTS Last administered on 09/09/18at 14:04; Start 09/09/18 at 14:00 Meropenem 500 mg/ Sodium Chloride 50 ml @ 100 mls/hr Q8HRS IV Last administered on 09/11/18at 05:27; Start 09/09/18 at 14:00 Vancomycin HCl 2 gm/Sodium Chloride 500 ml @ 250 mls/hr 1X ONCE IV Last administered on 09/09/18at 16:02; Start 09/09/18 at 15:00; Stop 09/09/18 at 16:59 ; Status DC Vancomycin HCl 1.5 gm/Sodium Chloride 500 ml @ 250 mls/hr Q24H IV Last administered on 09/10/18at 15:19; Start 09/10/18 at 15:00 Vancomycin HCl (Vancomycin Trough Level) 1 each 1X ONCE MC ; Start 09/11/18 at 14:30; Stop 09/11/18 at 14:31 Lidocaine HCl 20 ml 1X ONCE IJ Last administered on 09/09/18at 14:43; Start at 14:15; Stop 09/09/18 at 14:19; Status DC Lidocaine HCl 20 ml STK-MED ONCE .ROUTE ; Start 09/09/18 at 14:15; Stop at 14:16; Status DC Digoxin (Lanoxin) 500 mcg 1X ONCE IV Last administered on 09/09/18at 16:03; Start 09/09/18 at 16:00; Stop 09/09/18 at 16:01; Status DC Metoprolol Tartrate (Lopressor) 25 mg Q6HRS PO Last administered on 09/11/18 05:28; Start 09/09/18 at 18:00 Furosemide (Lasix) 40 mg 1X ONCE IVP Last administered on 09/09/18 17:38; Start 09/09/18 at 17:00; Stop 09/09/18 at 17:01; Status DC Insulin Glargine (Lantus) 25 units DAILY SQ Last administered on 09/09/18 21: 53; Start 09/10/18 at 09:00; Stop 09/10/18 at 12:02; Status DC Acetaminophen/ Codeine Phosphate (Tylenol #3) 1 tab PRN Q6HRS PRN PO PAIN; Start 09/09/18 at 19:30 Apixaban (Eliquis) 5 mg BID PO ; Start 09/09/18 at 21:00 Diltiazem HCl (Cardizem 24hr Cd) 120 mg DAILY PO Last administered on 10:46; Start 09/10/18 at 09:00 Fenofibrate (Tricor) 145 mg DAILY PO Last administered on 09/10/18at 10:46; Start 09/10/18 at 09:00 Pantoprazole Sodium (Protonix) 40 mg DAILY PO Last administered on 09/10/18at 10 :46; Start 09/10/18 at 09:00 Pioglitazone HCl (Actos) 30 mg DAILYBFRLUN PO Last administered on 09/10/18 10 :46; Start 09/10/18 at 11:30 Zolpidem Tartrate (Ambien) 5 mg HS PO Last administered on 09/10/18at 21:03; Start 09/09/18 at 21:00 Dextrose 12.5 gm PRN Q15MIN PRN IV SEE COMMENTS; Start 09/09/18 at 19:15 Insulin Human Lispro (HumaLOG) 0-7 UNITS TIDWMEALS SQ Last administered on 09/10 17:03; Start 09/10/18 at 08:00 Dextrose 12.5 gm PRN Q15MIN PRN IV SEE COMMENTS; Start 09/09/18 at 19:15; Status UNV Digoxin (Lanoxin) 250 mcg DAILY PO Last administered on 09/10/18at 12:12; Start 09/10/18 at 12:00 Furosemide (Lasix) 20 mg DAILY IVP ; Start 09/11/18 at 09:00; Stop 09/11/18 at 09:00; Status DC Furosemide (Lasix) 20 mg DAILY IVP Last administered on 09/10/18at 12:11; Start 09/10/18 at 12:00 Insulin Glargine (Lantus) 25 units HS SQ Last administered on 09/10/18at 21:10; Start 09/10/18 at 21:00 Lactobacillus Rhamnosus (Culturelle) 1 cap BID PO ; Start 09/11/18 at 09:00 Active Scripts Active Eliquis (Apixaban) 5 Mg Tablet 5 Mg PO BID 60 Days Diltiazem 24HR Cd (Diltiazem Hcl) 120 Mg Cap.er.24h 1 Cap PO DAILY Reported Tylenol With Codeine #3 Tablet (Acetaminophen With Codeine) 1 Each Tablet 1 Tab PO Q6HRS PRN Novolog (Insulin Aspart) 100 Unit/1 Ml Cartridge 0 SQ QIDACHS PRN Lantus Solostar (Insulin Glargine,Hum.rec.anlog) 100 Unit/1 Ml Insuln.pen 25 Unit SQ DAILY Triamcinolone Acetonide 15 Gm Cream..g. 1 Dario TP BID Proventil Hfa Inhaler (Albuterol Sulfate) 6.7 Gm Hfa.aer.ad 1 Puff INH PRN Q4HRS PRN Omeprazole 20 Mg Capsule.dr 1 Cap PO DAILY Actos (Pioglitazone Hcl) 30 Mg Tablet 1 Tab PO DAILYBFRLUN Zolpidem Tartrate 10 Mg Tablet 0.5 Tab PO QHS Fenofibrate 160 Mg Tablet 1 Tab PO DAILY Vitals/I & O Vital Sign - Last 24 Hours 09/10/18 09/10/18 09/10/18 09/10/18 10:46 11:00 11:34 12:12 Temp 97.6 Pulse 100 104 120 Resp 20 B/P (MAP) 120/52 (74) Pulse Ox 99 O2 Delivery Nasal Cannula Nasal Cannula O2 Flow Rate 2.0 2.0 09/10/18 09/10/18 09/10/18 09/10/18 14:21 14:35 14:40 15:38 Temp 98.4 98.5 Pulse 96 Resp 28 B/P (MAP) 136/54 136/62 (86) Pulse Ox 100 O2 Delivery Nasal Cannula Nasal Cannula O2 Flow Rate 2.0 2.0 09/10/18 09/10/18 09/10/18 09/10/18 16:03 16:33 17:46 19:00 Temp 97.7 Pulse 90 94 95 Resp 28 B/P (MAP) 113/48 (69) 113/48 104/52 (69) Pulse Ox 100 99 O2 Delivery Nasal Cannula Nasal Cannula Nasal Cannula O2 Flow Rate 2.0 2.0 2.0 09/10/18 09/10/18 09/10/18 09/10/18 19:30 20:00 21:00 22:07 Pulse 90 83 108 Resp 32 28 32 B/P (MAP) 118/54 (75) 110/65 (80) 110/55 (73) Pulse Ox 99 99 98 O2 Delivery Nasal Cannula Nasal Cannula Nasal Cannula Nasal Cannula O2 Flow Rate 2.0 2.0 2.0 2.0 09/11/18 09/11/18 09/11/18 09/11/18 00:23 00:25 00:25 02:40 Pulse 84 84 93 Resp 26 24 B/P (MAP) 120/62 120/62 (81) 104/50 (68) Pulse Ox 99 97 O2 Delivery Nasal Cannula Nasal Cannula Nasal Cannula O2 Flow Rate 2.0 2.0 2.0 09/11/18 09/11/18 09/11/18 09/11/18 04:00 05:20 05:28 08:25 Temp 98.4 Pulse 101 101 Resp 24 B/P (MAP) 116/57 (76) 116/57 Pulse Ox 98 O2 Delivery Nasal Cannula Nasal Cannula Nasal Cannula O2 Flow Rate 2.0 2.0 2.0 Intake and Output 09/10/18 09/10/18 09/11/18 14:59 22:59 06:59 Intake Total 800 ml 899 ml 164 ml Output Total 950 ml 875 ml Balance -150 ml 899 ml -711 ml MEG ORR MD 09/11/18 1526: PROGRESS NOTES Assessment Patient seen and examined. Agree with RIBBON INKER's assessment and plan. Acute on chronic diastolic heart failure better compensated. Continue current medical regimen. Atrial fibrillation rate well-controlled. Eliquis on hold secondary to anemia. TING SOLANO APRN Sep 11, 2018 09:14 MEG ORR MD Sep 11, 2018 15:26
[2018-09-11] MEDS: APIXABAN 5 MG TABLET. PO SCH (09:38)
[2018-09-11] MEDS: PIOGLITAZONE 15 MG TABLET. PO SCH (11:24)
[2018-09-11] MEDS ORDERED: METOPROLOL TART IMMED RELEASE 50 MG TABLET PO SCH (12:00)
[2018-09-11 13:16] VITALS: BP 126/56
[2018-09-11 14:58] LABS: VANC TR 16.4 mcg/mL (10.0-20.0)
--- NOTE | 2018-09-11 15:10 | DS ---
DATE OF DISCHARGE: 09/09/2018 HOSPITAL COURSE: The patient is an 83-year-old female patient, who was admitted as a transfer from [facility] complaining of mid chest pressure that lasted about 25 minutes. She was found to be in atrial fibrillation with rapid ventricular response for which she was started on Cardizem bolus and was admitted to the ICU to continue on a Cardizem drip and she was also found to have ischemic ulcers on her both lower extremities and we did actually Doppler ultrasound while at [facility], which showed that the patient has bilateral lower leg show biphasic and monophasic waveforms of the spectrum runoff consistent with mild to moderate grade outflow obstruction. She has moderate grade local stenosis is seen within the right popliteal artery and mild stenosis of the distal right superficial femoral artery. No focal stenosis seen on the left lower leg and because of that a decision was made to transfer her to [facility] to consult the vascular surgeon to evaluate her for possible revascularization. We will also obviously consult the wound care team, the Infectious Disease and the check inspector to assist with her and her management. PAST MEDICAL HISTORY: Significant for type 2 diabetes mellitus, hypertension, hyperlipidemia, generalized osteoarthritis, history of breast cancer, uterine cancer, and skin cancer. She apparently is known to have atrial fibrillation since 2018 for which she is on apixaban and diltiazem. PAST SURGICAL HISTORY: Significant for left total knee arthroplasty, right lumpectomy with radiation and chemotherapy 20 years ago. She has partial hysterectomy 30 years ago. She has bilateral cataract extraction, tonsillectomy, appendectomy, esophagogastroduodenoscopy as well as colonoscopy. ALLERGIES: She is allergic to PENICILLIN, SULFA DRUGS, ERYTHROMYCIN, IBUPROFEN and TETRACYCLINE. MEDICATIONS: She was transferred to [facility] to continue metoprolol 50 mg every 6 hours, lactobacillus rhamnosus 1 capsule twice a day, Lantus insulin 25 units at bedtime, vancomycin 1.5 g IV daily, furosemide 20 mg IV daily, digoxin 250 mcg daily, pioglitazone 30 mg daily, Protonix 40 mg daily, fenofibrate 145 mg daily, diltiazem 120 mg daily. She is on insulin sliding scale 3 times a day with meals, Ambien 5 mg at bedtime, apixaban 5 mg twice a day, acetaminophen with codeine 1 tablet every 6 hours. She is on meropenem 500 mg 3 times a day. FAMILY HISTORY: She had one brother, who at the age of 26 in a car accident. Her sister is 4 years younger and has 2 nieces replaced. Her father at age of 81 because of what seemed to have severe peripheral vascular disease. Mother at the age of 68 because of surgical complication. SOCIAL HISTORY: She is , has 4 daughters and 1 son. One daughter and one son have been both . She has never smoked, does not drink alcohol, or use any recreational drugs. REVIEW OF SYSTEMS: As per history of present illness. PHYSICAL EXAMINATION: GENERAL: When I saw her this afternoon, she was resting slightly propped up in bed, in no apparent respiratory distress. She was pale, but no jaundice, cyanosis, or thyromegaly. No jugular venous distension. No lower limb edema. VITAL SIGNS: Her heart rate was 85, blood pressure 126/56, temperature was 97.5, respiratory rate was 22 and oxygen saturation was 98% on 2 liters of oxygen by nasal cannula. HEAD, EYES, EARS, NOSE AND THROAT: Showed normocephalic, atraumatic. NECK: Supple. HEART: Showed normal first and second heart sounds. No gallop, rub or murmur. CHEST: Clear to auscultation with no crepitation or rhonchi anteriorly. ABDOMEN: Distended, soft, nontender. NEUROLOGIC: She is awake, alert, responding appropriately. All cranial nerves intact. She moves all extremities to much good extent than lower extremities. She has multiple wounds of both lower extremities. Her intake over the last 24 hours was 1345, output was 2275. LABORATORY DATA: This morning showed hemoglobin of 8, hematocrit 24. Her chemistry showed serum sodium of 145, potassium 4.2, chloride 111, bicarbonate 29, anion gap of 5, BUN 35, creatinine 1.3, estimated GFR was 39 mL per minute. Her glucose 112 and calcium was 7. Urinalysis showed the urine was turbid with a pH of 5.5, specific gravity of 1.010. Her urine protein showed small amount of protein, large amount of glucose, negative for ketones, large amount of blood, negative for nitrite, large amount of leukocyte esterase, 1-2 rbc's, 5-10 wbc's, and no bacteria. So far, all her cultures are negative. Her chest x-ray showed that she has had the PICC line to be the distal superior vena cava. The cardiomediastinal silhouette is stable. Lungs are clear. There is no pneumothorax. No definite pleural effusion is seen. Degenerative arthropathy of the shoulders. She has multilevel vertebroplasty better seen on the prior studies. Right axillary surgical clips. DISCHARGE MEDICATIONS: The patient will be transferred to [facility] to continue on IV antibiotic and all her other medication. FINAL DISCHARGE DIAGNOSES: Bilateral lower extremity ischemic ulcers, bilateral lower extremity cellulitis, severe peripheral vascular disease, particularly more so on the right lower extremity with the stenosis of the right superficial femoral and right popliteal artery. Other medical problems include type 2 diabetes, hypertension, hyperlipidemia, atrial fibrillation. I will hold her apixaban. She has also blood loss anemia. She dropped her hemoglobin significantly and we stopped her apixaban. GEOFFREY MARTI MD DR: JOSHUA/carlos JOB#: [id number] / [id number]
[2018-09-11] MEDS: VANCOMYCIN 1.5 GM in IV NORMAL SALINE 500ML 500 ML IV SCH (15:30)
[2018-09-11] MEDS: VANCOMYCIN PER PHARMACY MC PRN (15:38)
== END 2018-09-11 16:13 | disposition short-term general hospital (02) | DRG 291 ==
LOC: ER 10:48 → ICU 12:00 → ER 13:10
PROVIDERS: ADMIT Internal Medicine; ATTEND Internal Medicine
DX: I13.0 Hypertensive heart and chronic kidney disease with heart failure and stage 1 through stage 4 chronic kidney disease, or unspecified chronic kidney disease (principal); I50.33 Acute on chronic diastolic (congestive) heart failure; L03.116 Cellulitis of left lower limb; L03.115 Cellulitis of right lower limb; L97.929 Non-pressure chronic ulcer of unspecified part of left lower leg with unspecified severity; L97.919 Non-pressure chronic ulcer of unspecified part of right lower leg with unspecified severity; I48.1 Persistent atrial fibrillation; R65.10 Systemic inflammatory response syndrome (SIRS) of non-infectious origin without acute organ dysfunction; E11.22 Type 2 diabetes mellitus with diabetic chronic kidney disease; I95.9 Hypotension, unspecified; E11.51 Type 2 diabetes mellitus with diabetic peripheral angiopathy without gangrene; D50.0 Iron deficiency anemia secondary to blood loss (chronic); N18.9 Chronic kidney disease, unspecified; E78.00 Pure hypercholesterolemia, unspecified; Z96.653 Presence of artificial knee joint, bilateral; E78.5 Hyperlipidemia, unspecified; M15.9 Polyosteoarthritis, unspecified; Z90.49 Acquired absence of other specified parts of digestive tract; Z88.1 Allergy status to other antibiotic agents; Z88.0 Allergy status to penicillin; Z88.2 Allergy status to sulfonamides; Z88.8 Allergy status to other drugs, medicaments and biological substances; Z85.828 Personal history of other malignant neoplasm of skin; Z85.3 Personal history of malignant neoplasm of breast; Z85.42 Personal history of malignant neoplasm of other parts of uterus; Z79.01 Long term (current) use of anticoagulants; Z82.49 Family history of ischemic heart disease and other diseases of the circulatory system; Z90.711 Acquired absence of uterus with remaining cervical stump; Z92.21 Personal history of antineoplastic chemotherapy; Z98.41 Cataract extraction status, right eye; Z98.42 Cataract extraction status, left eye
CPT/HCPCS: 36415; 36569; 71045; 80048; 80053; 80202; 81001; 82947; 83735; 83880; 84484; 85014; 85018; 85025; 85027; 85651; 86140; 87086; 93005; 96365; 96376; J1160; J1815; J1940; J2185; J3370; J3490; J7040; 99291-25

== ENCOUNTER 2018-10-07 14:44 | Inpatient (IN) | payer MEDICARE, BC, OTHER ==
[~2018-10-07] VITALS: Ht 165.1 cm; Wt 85.4 kg
[~2018-10-07 14:44] MED LIST changes: +ACET-704 PO; +INSU100C4 SQ; +INSU100I13 SQ
--- NOTE | 2018-10-07 16:01 | RAD ---
CHEST PA LATERAL History: SHORT OF AIR, UNABLE TO BRING ARMS UP ANY HIGHER FOR LATERAL Comparison: 09/10/2018 AP view of the chest. Findings: Surgical clips involve the right axillary region. The cardiomediastinal silhouette is borderline. Pulmonary vasculature is normal. Consolidative appearance of the left perihilar region noted. Nodular infiltrates involving the left lower lung mai evident. Small pleural effusions are present. Kyphoplasty at multiple levels noted. Compression fracture of L1 noted. IMPRESSION: Patchy infiltrates including nodular infiltrates involves the left lung field. Small bilateral pleural effusions. Follow-up to resolution recommended. Electronically signed by: David Savage MD (10/07/2018 3:58 PM) [facility]
[2018-10-07] MEDS ORDERED: LIDOCAINE 1% Multi-Dose 20 ML VIAL. ONE (16:52)
[2018-10-07 17:26] VITALS: BP 150/66
--- NOTE | 2018-10-07 17:28 | EKG ---
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
[2018-10-07 17:34] LABS: BASO % 0 % (0-3); EOS % 0 % (0-3); HEMATOCRIT 24.7 % (36.0-47.0); HEMOGLOBIN 7.9 g/dL (12.0-15.5); LYMPH # 0.8 x10^3/uL (1.0-4.8); LYMPH % 7 % (24-48); MEAN CORPUSCULAR HEMOGLOBIN 29 pg (25-35); MEAN CORPUSCULAR HGB CONC 32 g/dL (31-37); MEAN CORPUSCULAR VOLUME 91 fL (79-100); MONO # 0.6 x10^3/uL (0.0-1.1); MONO % 6 % (0-9); NEUT # 9.6 x10^3uL (1.8-7.7); NEUT % 87 % (31-73); PLATELET COUNT 209 x10^3/uL (140-400); RED BLOOD COUNT 2.73 x10^6/uL (3.50-5.40); RED CELL DISTRIBUTION WIDTH 16.6 % (11.5-14.5)
[2018-10-07] MEDS ORDERED: LIDOCAINE 1% Multi-Dose 20 ML VIAL. SQ ONE (17:45)
[2018-10-07 17:48] LABS: ALBUMIN 2.3 g/dL (3.4-5.0); ALBUMIN/GLOBULIN RATIO 0.7 (1.0-1.7); CREATININE 1.4 mg/dL (0.6-1.0); GFR 35.7; POTASSIUM 4.2 mmol/L (3.5-5.1); TOTAL BILIRUBIN 0.5 mg/dL (0.2-1.0); TOTAL PROTEIN 5.6 g/dL (6.4-8.2)
--- NOTE | 2018-10-07 18:02 | CONS ---
DATE OF CONSULTATION: 10/07/2018 CONSULTING PHYSICIAN: Pennie Seymour MD REASON FOR CONSULTATION: Chest pain. HISTORY OF PRESENT ILLNESS: The patient is an 83-year-old woman with past medical history as noted below, who presents from [facility] in the setting of chest pain. She apparently was in her usual state of health and after rehabilitation she came back and had some chest discomfort, which is described as a crawling sensation without any obvious palpitations, nausea, vomiting, diaphoresis, fevers or chills. Of note, she was admitted in August to [facility] and subsequently transferred to [facility] for treatment of cellulitis of her lower extremities and [id number] decompensated heart failure. She was originally planned for a possible angiogram of the lower extremities, but after consultation with Vascular Surgery and Cardiology she was felt to be best treated with antibiotics and conservative management with diuresis. She did well and was discharged in mid to late August. She has been apparently working quite well with rehabilitation at [place] and this was the first episode where she had some problems. She has been complaining of some mild lightheadedness and dizziness, but has not had any syncope. Of note is reported that her digoxin level was elevated. She had required multiple rate control agents at [facility] before discharge due to atrial fibrillation with rapid ventricular response. Presently, the patient feels well and wants to go back to her rehab facility. PAST MEDICAL HISTORY: 1. Diastolic heart failure with ejection fraction of 70%. A. Echocardiogram in 11/2017 with normal LV function. B. Normal stress test in 2018. 2. Hypertension. 3. Diabetes. 4. Peripheral artery disease, moderate. 5. Chronic lower extremity wounds, likely venous stasis changes, most prominent on the right side. 6. Chronic debility. 7. Cellulitis of the lower extremities in 2019. SOCIAL HISTORY: The patient lives at [facility]. No alcohol, tobacco or illicit drug use. She is a well-supported by her daughters. FAMILY HISTORY: Noncontributory. ALLERGIES: MULTIPLE ANTIBIOTICS AND IBUPROFEN. CURRENT CARDIAC MEDICATIONS: 1. Diltiazem 120 daily. 2. Metoprolol 50 mg b.i.d. 3. Digoxin 250 mcg daily. 4. Eliquis 5 mg p.o. b.i.d. 5. Lasix 20 mg daily. REVIEW OF SYSTEMS: As noted above in HPI. PHYSICAL EXAMINATION: VITAL SIGNS: Afebrile, heart rate 70, blood pressure 136/82, pulse ox 94% on 2 liters nasal cannula. GENERAL: She is alert and oriented, no acute distress. HEAD AND NECK: Grossly unremarkable. HEART: Irregular rhythm without any obvious murmurs, rubs or gallops. LUNGS: Notable for mild rales at the bases. ABDOMEN: Obese, protuberant, nontender, nondistended. EXTREMITIES: No edema on the left side and trace edema on the right side with a chronic li wound related to venous insufficiency. NEUROLOGIC: No focal deficits. MUSCULOSKELETAL: No obvious trauma. DIAGNOSTIC STUDIES: Laboratory studies are currently pending. Chest x-ray reveals patchy infiltrates along the left lung and small bilateral pleural effusions. IMPRESSION: 1. Very atypical chest pain in the setting of a near normal stress test in 2018 and normal EF in 2018. Differential diagnosis is possible arrhythmia versus hypertension episode. 2. Chronic atrial fibrillation, on rate control therapy. 3. Chronic lower extremity venous stasis changes and diastolic heart failure, currently appears to be fairly well compensated. RECOMMENDATIONS: 1. At this present time, hold digoxin. 2. Continue her other rate control agents. 3. We will repeat an echocardiogram to ensure that her LV systolic function is stable and if so, that we would defer any further aggressive testing and continue to treat her medically. May consider addition of low dose isosorbide mononitrate if she has any persistent chest pain. Given her debility and age and comorbidities, she would be a poor candidate for invasive diagnostic catheterization, but we would reserve this only if she has any recurrent chest pain. Thank you for this consultation. DARIEN ORTEGA MD DR: EMILIANO/carlos JOB#: [id number] / [id number]
[2018-10-07] MEDS ORDERED: DIPH-121 PO (18:28)
[2018-10-07] MEDS ORDERED: DOCU-109 PO (18:28)
[2018-10-07] MEDS ORDERED: ONDA4TAB7 PO (18:28)
[2018-10-07] MEDS ORDERED: MULT1TAB52 PO (18:28)
[2018-10-07] MEDS ORDERED: METO50TA6 PO (18:28)
--- NOTE | 2018-10-07 18:43 | NUR ---
The patient, ILANA MALONEY, 83 y/o, F admitted by GEOFFREY MARTI MD, was given written information regarding hospital policies, unit procedures and contact persons. Valuables were checked and left with patient's daughter Rhiannon .Patient is a DNR, admitted direct admit from [facility] where patient was staying for skilled services. Patient is alert and oriented x 3, with confusion on date at times. Patient ambulates with stand by assist and walker. Patient is continent of bowel and bladder. Patient was admitted with c/o chest pain and shortness of breath. Patient abdomen is soft and non tender and active bowel sounds in all 4 quadrants. Inspiratory and expiratory crackles head in left middle lobe upon auscultation. Patient is on 02 VIA NC AT 2l with O2 stats at 95%. Respirations are even and slightly labored with no cough present. Patient has a history of CHF, ARF, HLD, AFIB, HTN, DM, DEMENTIA, DVTS, BREAST CANCER RIGHT MASTECOMY. No BP or sticks on the right side. Patient has been oriented to unit, patient is now resting in bed with call light and fresh fluids with in reach. Cardiac diet. 22G in LUZ MARIA, 22g in left hand. Labs are pending. Contact precautions pending MRSA results. Daughter Tuan and Rhiannon notified of patient admission per patient request. Daughter Tuan was present on admit.
[2018-10-07 19:35] VITALS: BP 101/63
[2018-10-07] MEDS ORDERED: FURO-69 PO (20:38)
[2018-10-07] MEDS ORDERED: ONDA4TAB12 PO (20:38)
[2018-10-07] MEDS ORDERED: DIPH25TA26 PO (20:38)
[2018-10-07] MEDS ORDERED: ALBUTEROL SULFATE 2.5 MG/3 ML NEBU. NEB PRN (20:45)
[2018-10-07] MEDS: DOCUSATE SODIUM 100 MG CAPSULE PO SCH (20:58)
[2018-10-07] MEDS ORDERED: DEXTROSE 50% 25 GM / 50ML DISP.SYRIN. IV PRN (21:00)
[2018-10-07] MEDS ORDERED: ONDANSETRON ODT 4 MG TAB.RAPDIS PO PRN (21:00)
[2018-10-07] MEDS ORDERED: diphenhydrAMINE HCL 25 MG CAPSULE PO PRN (21:00)
[2018-10-07] MEDS: APIXABAN 5 MG TABLET. PO SCH (21:06)
[2018-10-07] MEDS: METOPROLOL TART IMMED RELEASE 50 MG TABLET PO SCH (21:07)
[2018-10-07 22:49] VITALS: BP 106/65
[2018-10-08] MEDS: ACETAMINOPHEN/CODEINE 300/30MG TABLET PO PRN ×2 (03:03→11:29)
[2018-10-08 05:49] VITALS: BP 118/68
[2018-10-08] MEDS: MULTIVITAMIN with MINERAL TABLET. PO SCH (07:56)
[2018-10-08] MEDS: PANTOPRAZOLE 40 MG TABLET. PO SCH (07:57)
[2018-10-08] MEDS: APIXABAN 5 MG TABLET. PO SCH ×2 (07:57→18:59)
[2018-10-08] MEDS: FUROSEMIDE 20 MG TABLET PO SCH (07:57)
[2018-10-08] MEDS: FENOFIBRATE NANOCRYSTALLIZED 145 MG TABLET PO SCH (07:57)
[2018-10-08] MEDS: DOCUSATE SODIUM 100 MG CAPSULE PO SCH ×2 (07:57→21:09)
[2018-10-08] MEDS: METOPROLOL TART IMMED RELEASE 50 MG TABLET PO SCH ×2 (07:57→21:09)
[2018-10-08] MEDS: INSULIN LISPRO 300 UNITS/3 ML INSULN.PEN. SQ SCH ×3 (08:02→17:00)
--- NOTE | 2018-10-08 08:50 | NUR ---
IP: patient has hx of +MRSA screen 08/22/18, requires contact precautions until 2 negative results 7 days apart.
--- NOTE | 2018-10-08 09:13 | NUR ---
Wound Care Wound care consult for RLE stasis ulcer. Pt has been seen by WC team recently in [facility] ICU and at [facility], stasis ulcer is healing. Cleansed wound and redressed with Xeroform, ABD and kerlix, recommend to change every other day. No other wounds noted on full skin inspection. Pt educated on PU prevention. RN present for dressing change and is aware of POC. WC will continue to follow for possible changes.
--- NOTE | 2018-10-08 09:13 | PDOC ---
PROGRESS NOTES Assessment 1. atypical chest pain with minimal trop elevation. small Inferoapical defect on November 2017, MPI. Echo in November 2017 with normal Ef and wall motion. Continue RF reduction, and medical mgmt. 2. chronic atrial fibrillation - rate remains controlled. 3. chronic diastolic heart failure - no sig pulmonary vascular congestion. sm effusion. increase todays PO lasix dose as unable to obtain IV access. 4. Anemia - heme checks Subjective maintain Sao2 low 90s on 3 liters nasal cannula, appears dyspneic, no chest pain. Objective Vital Signs Date Time Temp Pulse Resp B/P (MAP) Pulse Ox O2 Delivery O2 Flow Rate FiO2 10/08/18 08:00 Nasal Cannula 3.0 10/08/18 07:57 100 118/68 10/08/18 05:49 98.3 24 93 Intake and Output 10/08/18 06:59 Intake Total 560 ml Balance 560 ml Intake Oral 560 ml # Voids 3 Physical Exam gen: Awake, alert and in mild distress CV IRR,, no gallops, clicks or rubs Lungs: basilar crackles abd: + bowel sounds ext: trace edema, R>L Review of Relevant I have reviewed the following items kassandra (where applicable) has been applied. Labs Laboratory Tests Test 10/07/18 17:20 10/07/18 17:26 10/07/18 20:15 10/07/18 21:10 Lactic Acid Level 0.7 mmol/L (0.4-2.0) Magnesium Level 1.9 mg/dL (1.8-2.4) White Blood Count 11.0 x10^3/uL (4.0-11.0) Red Blood Count 2.73 x10^6/uL (3.50-5.40) Hemoglobin 7.9 g/dL (12.0-15.5) Hematocrit 24.7 % (36.0-47.0) Mean Corpuscular Volume 91 fL (79-100) Mean Corpuscular Hemoglobin 29 pg (25-35) Mean Corpuscular Hemoglobin Concent 32 g/dL (31-37) Red Cell Distribution Width 16.6 % (11.5-14.5) Platelet Count 209 x10^3/uL (140-400) Neutrophils (%) (Auto) 87 % (31-73) Lymphocytes (%) (Auto) 7 % (24-48) Monocytes (%) (Auto) 6 % (0-9) Eosinophils (%) (Auto) 0 % (0-3) Basophils (%) (Auto) 0 % (0-3) Neutrophils # (Auto) 9.6 x10^3uL (1.8-7.7) Lymphocytes # (Auto) 0.8 x10^3/uL (1.0-4.8) Monocytes # (Auto) 0.6 x10^3/uL (0.0-1.1) Eosinophils # (Auto) 0.0 x10^3/uL (0.0-0.7) Basophils # (Auto) 0.0 x10^3/uL (0.0-0.2) Sodium Level 137 mmol/L (136-145) Potassium Level 4.2 mmol/L (3.5-5.1) Chloride Level 101 mmol/L (98-107) Carbon Dioxide Level 31 mmol/L (21-32) Anion Gap 5 (6-14) Blood Urea Nitrogen 28 mg/dL (7-20) Creatinine 1.4 mg/dL (0.6-1.0) Estimated GFR (Cockcroft-Gault) 35.7 BUN/Creatinine Ratio 20 (6-20) Glucose Level 164 mg/dL (70-99) Calcium Level 7.0 mg/dL (8.5-10.1) Total Bilirubin 0.5 mg/dL (0.2-1.0) Aspartate Amino Transf (AST/SGOT) 12 U/L (15-37) Alanine Aminotransferase (ALT/SGPT) 11 U/L (14-59) Alkaline Phosphatase 42 U/L (46-116) Creatine Kinase 35 U/L (26-192) Troponin I Quantitative 0.072 ng/mL (0-0.055) 0.074 ng/mL (0-0.055) Total Protein 5.6 g/dL (6.4-8.2) Albumin 2.3 g/dL (3.4-5.0) Albumin/Globulin Ratio 0.7 (1.0-1.7) Glucose (Fingerstick) 245 mg/dL (70-99) Test 10/08/18 02:54 10/08/18 07:34 Troponin I Quantitative 0.070 ng/mL (0-0.055) Glucose (Fingerstick) 243 mg/dL (70-99) Medications Current Medications Lidocaine HCl 20 ml STK-MED ONCE .ROUTE ; Start 10/07/18 at 16:52; Stop at 16:53; Status DC Lidocaine HCl 20 ml 1X ONCE SQ Last administered on 10/07/18at 17:40; Start 04/17 at 17:45; Stop 10/07/18 at 18:00; Status DC Influenza Virus Vaccine (Afluria Trivalent [id number] Syringe) 0.5 ml ONCE ONCE VAX IM ; Start 10/07/18 at 17:45; Stop 10/07/18 at 17:46; Status UNV Furosemide (Lasix) 20 mg DAILY PO Last administered on 10/08/18 07:57; Start 10/08/18 at 09:00 Acetaminophen/ Codeine Phosphate (Tylenol #3) 1 tab PRN Q6HRS PRN PO PAIN Last administered on 10/08/18 03:03; Start 10/07/18 at 21:00 Apixaban (Eliquis) 5 mg BID PO Last administered on 10/08/18 07:57; Start 04/17 at 21:00 Diltiazem HCl (Cardizem 24hr Cd) 120 mg DAILY PO Last administered on 07:57; Start 10/08/18 at 09:00 Diphenhydramine HCl (Benadryl) 25 mg PRN Q8HRS PRN PO ITCHING; Start 10/07/18 at 21:00 Docusate Sodium (Colace) 100 mg BID PO Last administered on 10/08/18 07:57; Start 10/07/18 at 21:00 Fenofibrate (Tricor) 145 mg DAILY PO Last administered on 10/08/18 07:57; Start 10/08/18 at 09:00 Metoprolol Tartrate (Lopressor) 50 mg BID PO Last administered on 10/08/18 07: 57; Start 10/07/18 at 21:00 Multivitamins/ Calcium (Thera-M Plus) 1 tab DAILY PO Last administered on 07:56; Start 10/08/18 at 09:00 Pantoprazole Sodium (Protonix) 40 mg DAILY PO Last administered on 4/11/19at 07 :57; Start 10/08/18 at 09:00 Ondansetron HCl (Zofran Odt) 4 mg PRN Q6HRS PRN PO NAUSEA/VOMITING; Start 10/07 at 21:00 Albuterol Sulfate (Ventolin) 2.5 mg PRN Q4HRS PRN NEB SHORTNESS OF BREATH Last administered on 10/08/18at 04:45; Start 10/07/18 at 20:45 Insulin Human Lispro (HumaLOG) 0-9 UNITS TIDWMEALS SQ Last administered on 10/08at 08:02; Start 10/08/18 at 08:00 Dextrose 12.5 gm PRN Q15MIN PRN IV SEE COMMENTS; Start 10/07/18 at 21:00 Active Scripts Active Eliquis (Apixaban) 5 Mg Tablet 5 Mg PO BID 60 Days Diltiazem 24HR Cd (Diltiazem Hcl) 120 Mg Cap.er.24h 1 Cap PO DAILY Reported Lasix (Furosemide) 20 Mg Tablet 20 Mg PO DAILY Diphenhydramine Hcl 25 Mg Tablet 25 Mg PO PRN Q8HRS PRN Ondansetron Odt (Ondansetron) 4 Mg Tab.rapdis 4 Mg PO PRN Q6HRS PRN Multivitamins (Multivitamin) 1 Each Tablet 1 Tab PO DAILY Metoprolol Tartrate 50 Mg Tablet 1 Tab PO BID Colace (Docusate Sodium) 100 Mg Capsule 1 Cap PO BID Tylenol With Codeine #3 Tablet (Acetaminophen With Codeine) 1 Each Tablet 1 Tab PO Q6HRS PRN Novolog (Insulin Aspart) 100 Unit/1 Ml Cartridge 0 SQ QIDACHS PRN Proventil Hfa Inhaler (Albuterol Sulfate) 6.7 Gm Hfa.aer.ad 1 Puff INH PRN Q4HRS PRN Omeprazole 20 Mg Capsule.dr 1 Cap PO DAILY Fenofibrate 160 Mg Tablet 1 Tab PO DAILY Vitals/I & O Vital Sign - Last 24 Hours 10/07/18 10/07/18 10/07/18 10/07/18 16:47 17:26 19:30 19:35 Temp 98.6 98.6 Pulse 86 75 Resp 16 20 B/P (MAP) 150/66 (94) 101/63 (76) Pulse Ox 95 93 O2 Delivery Nasal Cannula Nasal Cannula Nasal Cannula Nasal Cannula O2 Flow Rate 2.0 2.0 3.0 3.0 10/07/18 10/07/18 10/08/18 10/08/18 21:07 22:49 03:03 04:28 Temp 97.9 Pulse 75 72 Resp 24 20 20 B/P (MAP) 101/63 106/65 (79) Pulse Ox 92 92 92 O2 Delivery Nasal Cannula Nasal Cannula Nasal Cannula O2 Flow Rate 3.0 3.0 3.0 10/08/18 10/08/18 10/08/18 10/08/18 04:49 05:49 07:57 07:57 Temp 98.3 Pulse 100 100 100 Resp 24 B/P (MAP) 118/68 (85) 118/68 118/68 Pulse Ox 93 O2 Delivery Nasal Cannula Nasal Cannula O2 Flow Rate 2.0 3.0 10/08/18 08:00 O2 Delivery Nasal Cannula O2 Flow Rate 3.0 Intake and Output 10/07/18 10/07/18 10/08/18 14:59 22:59 06:59 Intake Total 360 ml 200 ml Balance 360 ml 200 ml TING SOLANO GENETIC SCIENTIST Oct 08, 2018 09:13
[2018-10-08 10:51] VITALS: BP 137/65
[2018-10-08] MEDS ORDERED: FUROSEMIDE 40 MG TABLET PO ONE (11:15)
[2018-10-08] MEDS ORDERED: FUROSEMIDE 20 MG TABLET PO ONE (11:30)
--- NOTE | 2018-10-08 11:44 | NUR ---
NURSING NOTE FAMILY PT HAS MULTIPLE FAMILY IN AND OUT OF THE ROOM. PER PT DAUGHTER, ONLY SPEAK WITH KB ON THE PHONE AND SHE CAN RELAY THE MESSAGES TO WHOM EVER APPROPRIATE. CELL HOUSE PT FAMILY STATES LUPILLO CAUSES PROBLEMS AND SHE DOES NOT NEED TO BE CALLING. KEYA SHEIKH.
--- NOTE | 2018-10-08 12:42 | HP ---
ADMIT DATE: 10/07/2018 HISTORY OF PRESENT ILLNESS: The patient is an 83-year-old female patient, a resident at [facility], who was admitted directly as she has been complaining of chest pain that is retrosternal. Apparently, the patient denies any nausea, vomiting. She did complain of shortness of breath, but denied any cough, phlegm or hemoptysis. We did actually order lab work including her troponin that was slightly high at 0.072. Her white cell count was 11,000. She has already normochromic normocytic anemia and we plan to consult the automotive quality manager as well as do 2 more sets of cardiac enzymes. PAST MEDICAL HISTORY: Significant for type 2 diabetes mellitus, hypertension, hyperlipidemia, generalized osteoarthritis. She has breast cancer, uterine cancer, and skin cancer. Other medical problems include chronic diastolic congestive heart failure, ejection fraction of 70%. She has obviously hypertension, type 2 diabetes, peripheral artery disease, chronic lower extremity wounds with venous stasis changes, chronic debility, has had a history of cellulitis of the lower extremity in 2019. PAST SURGICAL HISTORY: Significant for left total knee arthroplasty, right lumpectomy with radiation and chemotherapy 20 years ago. She has partial hysterectomy 30 years ago. She has bilateral cataract extraction, tonsillectomy, appendectomy, esophagogastroduodenoscopy and colonoscopy. ALLERGIES: She is allergic to PENICILLIN and SULFA DRUGS. FAMILY HISTORY: She has one brother who at age of 26 in a car accident. Her sister is 4 years younger and has 2 knees replaced. Her father at the age of 81 because of what seemed to be severe peripheral vascular disease. Mother at the age of 68 because of surgical complication. SOCIAL HISTORY: She is , has 4 daughters and 1 son, one daughter and one son have . She has never smoked, does not drink alcohol or recreational drugs. She is currently residing at [facility]. MEDICATIONS: She is currently on following medications: Diphenhydramine 25 mg every 8 hours as needed for itching. She is on albuterol sulfate one inhalation, 1 puff every 4 hours as needed, apixaban 5 mg twice a day, fenofibrate 160 mg daily, metoprolol tartrate 50 mg twice a day, diltiazem extended release 120 mg once a day, Tylenol with Codeine 1 tablet every 6 hours, furosemide 20 mg daily, Colace 100 mg twice a day, ondansetron 4 mg every 6 hours as needed, omeprazole 20 mg daily. She is on NovoLog insulin as per insulin sliding scale before meals and multivitamin 1 tablet once a day. PHYSICAL EXAMINATION: GENERAL: On arrival to the hospital, the patient was definitely pale, but no jaundice, cyanosis, or thyromegaly. No jugular venous distension. Has mild bilateral lower limb edema. VITAL SIGNS: Her heart rate was 86, blood pressure was 150/66, temperature was 98.6, respiratory rate was 16, and oxygen saturation was 95% on 2 liters oxygen. HEAD, EYES, EARS, NOSE, AND THROAT: Showed normocephalic, atraumatic. NECK: Supple. HEART: Showed normal first and second heart sounds. No gallop, rub, or murmur. CHEST: Showed crepitation on both bases according to Dr. Singer, as I have not seen her myself. ABDOMEN: Soft, nontender. No guarding or rigidity. No organomegaly. EXTREMITIES: Showed no edema on the left side and trace edema in the right side with a chronic skin wound related to venous insufficiency. NEUROLOGIC: She was apparently more awake, alert, responding appropriately. All cranial nerves intact. She moves extremities without difficulty. LABORATORY DATA: On arrival, she has had lab work done, which showed a white cell count of 11,000, hemoglobin 7.9, hematocrit 24.7, MCV 91, and platelet count of 209,000. Her chemistry showed her serum sodium to be 137, potassium 4.2, chloride 101, bicarbonate 31, anion gap of 5, BUN 28, creatinine 1.4, estimated GFR was 35 mL per minute. Her glucose 164, lactic acid was 0.7, magnesium was 1.9. Calcium was 7. Total bilirubin, AST, ALT, alkaline phosphatase were normal. CK was 35. Total protein was 5.6, albumin was 2.3. Her chest x-ray showed the patient has patchy infiltrate including nodular infiltrate involving the left lung field, small bilateral pleural effusion ____. She has surgical clips involving the right axillary region. The cardiomediastinal silhouette is borderline. Pulmonary vasculature is normal. Consolidative appearance of the left perihilar region, noted nodular infiltrate involving the left lower lung field, small bilateral pleural effusion, kyphoplasty at multiple levels noted, compression fracture of L1 noted. We will do 2 sets of cardiac enzyme and consult the cardiology team. Continue all her medication and decide the further management accordingly. GEOFFREY MARTI MD DR: JOSHUA/carlos JOB#: [id number] / [id number]
[2018-10-08 15:00] VITALS: BP 116/65
--- NOTE | 2018-10-08 16:02 | CARD ---
MR#: [id number] Date of Study: 10/08/2018 Ordering Physician: DARIEN ORTEGA, Referring Physician: GEOFFREY MARTI Tech: Radha Zhou ASHLIE APPROVED REPORT EXAM: LIMITED Two-dimensional and M-mode echocardiogram with Doppler and color Doppler. Other Information Quality : Technically LimitedHR: 75bpm Rhythm : Atrial FibrillationTechnically limited study due to body habitus. INDICATION Elevated troponin 2D DIMENSIONS RVDd3.6 (2.9-3.5cm)Left Atrium(2D)4.7 (1.6-4.0cm) IVSd1.2 (0.7-1.1cm)Aortic Root(2D)3.1 (2.0-3.7cm) LVDd4.6 (3.9-5.9cm)PWd1.0 (0.7-1.1cm) LVDs3.3 (2.5-4.0cm)FS (%) 29.0 % SV54.8 mlLVEF(%)55.7 (>50%) Tricuspid Valve TR P. [id number] [id number] TR Peak Gr.[id number] LEFT VENTRICLE The left ventricle is normal size. Proximal septal thickening is noted. The left ventricular systolic function is normal. The Ejection Fraction is 55-60%. There is normal LV segmental wall motion. RIGHT VENTRICLE The right ventricle is borderline dilated. There is normal right ventricular wall thickness. Systolic function is borderline reduced. ATRIA The left atrium is moderately dilated. The right atrium is moderately dilated. The interatrial septum is intact with no evidence for an atrial septal defect or patent foramen ovale as noted on 2-D or Do ppler imaging. AORTIC VALVE The aortic valve is mildly calcified. The aortic valve is trileaflet. There is no significant aortic valvular stenosis. MITRAL VALVE The mitral valve is thickened but opens well. There is no evidence of mitral valve prolapse. There is no mitral valve stenosis. TRICUSPID VALVE The tricuspid valve is normal in structure and function. Doppler and Color Flow revealed mild tricusp id regurgitation. There is moderate pulmonary hypertension. The PA pressure was estimated at 56 mmHg. There is no tricuspid valve prolapse or vegetation. There is no tricuspid valve stenosis. PULMONIC VALVE The pulmonic valve is not well visualized. GREAT VESSELS The aortic root is normal in size. The ascending aorta is normal in size. The IVC is dilated. PERICARDIAL EFFUSION There is no evidence of significant pericardial effusion. Critical Notification Critical Value: No <Conclusion> The left ventricular systolic function is normal. The Ejection Fraction is 55-60%. There is normal LV segmental wall motion. Mild tricuspid regurgitation. There is moderate pulmonary hypertension. The PA pressure was estimated at 56 mmHg. There is no evidence of significant pericardial effusion. Signed by : Richard Reynaga, Electronically Approved : 10/08/2018 16:02:05
[2018-10-08] MEDS ORDERED: VANCOMYCIN 2 GM in IV NORMAL SALINE 500ML 500 ML IV ONE ×2 (16:30→21:00)
--- NOTE | 2018-10-08 19:02 | PN ---
DATE: 10/08/2018 OBJECTIVE: GENERAL: The patient is resting slightly propped up in bed, clearly very lethargic, tachypneic, pale, but no jaundice, cyanosis or thyromegaly. No jugular venous distention. Mild bilateral lower limb edema. VITAL SIGNS: Her heart rate was 72, blood pressure was 106/65, temperature was 97.9, respiratory rate was 24, and oxygen saturation was 92% on 3 liters of oxygen. HEAD, EYES, EARS, NOSE, AND THROAT: Showed normocephalic, atraumatic. NECK: Supple. HEART: Showed normal first and second heart sounds. No gallop, rub or murmur. CHEST: Shows central trachea, equal bilateral expansion, air entry. She has crepitation mostly in the left side posteriorly. ABDOMEN: Distended, soft, nontender. NEUROLOGIC: She is lethargic, but arousable. Her intake and output are incompletely recorded. No lab works were ordered this morning; however, reviewing the chest x-rays, the infiltrates are mostly in the left side indicating she probably has pneumonia superimposed on heart failure. We will arrange for her to have a PICC line. I will start her on IV antibiotic for healthcare-associated pneumonia. Also continue with IV Lasix as recommended by the Cardiology team. GEOFFREY MARTI MD DR: JOSHUA/carlos JOB#: [id number] / [id number]
[2018-10-08 19:36] VITALS: BP 127/72
--- NOTE | 2018-10-08 21:15 | NUR ---
Positive sepsis screen Pt screened positive for sepsis given PNA by CXR, antiinfective therapy, and documented infection. Pt's RR >20 on 3L NC, SpO2 WNL. Lion aware of these conditions as they were noted during day shift, but he was made aware of positive screening. Pt scheduled for vancomycin and meropenem once PICC in place. WCTM. Patricio Haque RN
--- NOTE | 2018-10-08 21:18 | NUR ---
Blood sugar at 270 Pt BG at 270 at approx 1930, nothing ordered. Spoke with Lion at 2114, who ordered 5 units Lantus for ONE TIME administration. [facility] repeated back to Lion, [facility] HUSAM. Patricio Haque RN
[2018-10-08] MEDS ORDERED: INSULIN GLARGINE 300 UNITS/3 ML INSULN.PEN. SQ ONE (21:45)
--- NOTE | 2018-10-08 22:31 | NUR ---
Order Verified Yes Consent signed per Daughter on phone with 2 RNs Previous PICC placement Yes per Daughter Past Medical/Surgical history and current diagnosis reviewed Yes Patient Medical /Surgical History Related to PICC line placement Arrhythmias AFib, chest Xray needed for placement verification Mastectomy with/without lymph resection right arm Special considerations for PICC line placement None PICC placement indication Poor peripheral intravenous access Name of PICC Nurse Sarahi Santana RN
--- NOTE | 2018-10-08 22:34 | NUR ---
Procedure: Following complete explanation of the PICC procedure including the indications, risks, and potential complications, informed consent was obtained. The possibility for infection was discussed along with signs, symptoms, and prevention. All the Patient's daughter's questions were answered.Daughter Marley was very familiar with a PICC line and risks. States she has been in the room in the past when a previous line was put in her mother. IV Device Protocol was used. Written and verbal patient education was provided. Hand hygiene performed. Standardized central line checklist was utilized. The patient was placed in the supine position, the arm was prepped with chlorhexidine and patient draped with maximum sterile barrier. 1 mL 1% lidocaine was infiltrated into the skin to provide local anesthesia. A thorough assessment of the left upper extremity completed. Using real-time ultrasound guidance and standardized micro puncture set, the brachial vein was punctured and a peel away sheath was placed using the modified Seldinger technique. A tip location device was used to ensure adequate catheter placement. The catheter was secured using a securement device and an antimicrobial patch was applied directly on the insertion site followed by a transparent dressing. All ports withdrew blood and flushed without resistance. Patient tolerated the procedure without apparent complication. A double Lumen Power PICC placement successful and uncomplicated. Placement verified by chest x-ray due to AFib. Complications: none
[2018-10-08 22:48] VITALS: BP 137/76
[2018-10-08] MEDS: MEROPENEM 500 MG in IV NORMAL SALINE 50ML 50 ML IV SCH (22:53)
[2018-10-09 05:46] VITALS: BP 137/63
[2018-10-09] MEDS: MEROPENEM 500 MG in IV NORMAL SALINE 50ML 50 ML IV SCH ×3 (06:26→21:54)
[2018-10-09 06:39] LABS: HEMATOCRIT 23.1 % (36.0-47.0); HEMOGLOBIN 7.7 g/dL (12.0-15.5); RED BLOOD COUNT 2.56 x10^6/uL (3.50-5.40); WHITE BLOOD COUNT 7.9 x10^3/uL (4.0-11.0)
[2018-10-09 07:05] LABS: ALBUMIN/GLOBULIN RATIO 0.6 (1.0-1.7); CALCIUM 6.9 mg/dL (8.5-10.1); CREATININE 1.3 mg/dL (0.6-1.0); GFR 38.9; POTASSIUM 4.2 mmol/L (3.5-5.1); TOTAL BILIRUBIN 0.5 mg/dL (0.2-1.0); TOTAL PROTEIN 5.5 g/dL (6.4-8.2)
--- NOTE | 2018-10-09 07:43 | RAD ---
Examination: PORTABLE CHEST 1V History: picc line placement Comparison/Correlation: 10/07/2018 two-view chest x-ray exam Findings: Portable upright frontal view of the chest was obtained. Left-sided PICC terminates overlying the superior vena cava-right atrium junction. Lung apices were not fully included on this exam. Patchy nodular consolidation involving the right mid to lower lung field is present. Scattered infiltrates of the left lung field are noted. Very small pleural effusions suggested. Degenerative changes the glenohumeral joints greater than right noted. Vertebroplasty noted at a few levels. Right axillary surgical clips noted. Impression: Patchy nodular consolidation is present in the interval at the right mid to lower lung field level. Left lung field infiltrates again seen. Decreased nodular component of the left lung infiltrates evident. Left-sided PICC is in place on basis of the frontal view provided. Assessment for pneumothorax is nondiagnostic as the lung apices weren't fully included. Repeat frontal view is recommended for more definitive assessment of pneumothorax. Electronically signed by: David Savage MD (10/09/2018 7:40 AM) [facility]
[2018-10-09] MEDS: INSULIN LISPRO 300 UNITS/3 ML INSULN.PEN. SQ SCH ×3 (08:19→17:17)
[2018-10-09] MEDS: DOCUSATE SODIUM 100 MG CAPSULE PO SCH ×2 (08:22→20:54)
[2018-10-09] MEDS: METOPROLOL TART IMMED RELEASE 50 MG TABLET PO SCH ×2 (08:23→20:54)
[2018-10-09] MEDS: PANTOPRAZOLE 40 MG TABLET. PO SCH (08:23)
[2018-10-09] MEDS: FENOFIBRATE NANOCRYSTALLIZED 145 MG TABLET PO SCH (08:23)
[2018-10-09] MEDS: MULTIVITAMIN with MINERAL TABLET. PO SCH (08:23)
[2018-10-09] MEDS: FUROSEMIDE 20 MG TABLET PO SCH (08:23)
--- NOTE | 2018-10-09 09:18 | PDOC ---
PROGRESS NOTES Assessment 1. atypical chest pain with minimal trop elevation. small Inferoapical defect on November 2017, MPI. Echo in November 2017 with normal Ef and wall motion. Continue RF reduction, and medical mgmt. 2. chronic atrial fibrillation - rate remains controlled. 3. chronic diastolic heart failure - no sig pulmonary vascular congestion. sm effusion. 4. Pneumonia - abx, per PCP 5. Anemia - heme checks Subjective Maintaining SaO2 on 3l NC oxygen. appears less short of breath today. reports feeling a little better. no chest pain. Objective Vital Signs Date Time Temp Pulse Resp B/P (MAP) Pulse Ox O2 Delivery O2 Flow Rate FiO2 10/09/18 08:24 88 137/63 10/09/18 05:46 98.6 22 92 Nasal Cannula 3.0 Intake and Output 10/09/18 07:00 Intake Total 1320 ml Output Total 1050 ml Balance 270 ml Intake Oral 720 ml IV Total 600 ml Output Urine Total 1050 ml # Voids 5 Physical Exam gen: Awake, alert and in mild distress CV IRR,, no gallops, clicks or rubs Lungs: basilar crackles abd: + bowel sounds ext: trace edema, R>L Review of Relevant I have reviewed the following items kassandra (where applicable) has been applied. Labs Laboratory Tests Test 10/07/18 17:20 10/07/18 17:26 10/07/18 20:15 10/07/18 21:00 Lactic Acid Level 0.7 mmol/L (0.4-2.0) Magnesium Level 1.9 mg/dL (1.8-2.4) White Blood Count 11.0 x10^3/uL (4.0-11.0) Red Blood Count 2.73 x10^6/uL (3.50-5.40) Hemoglobin 7.9 g/dL (12.0-15.5) Hematocrit 24.7 % (36.0-47.0) Mean Corpuscular Volume 91 fL (79-100) Mean Corpuscular Hemoglobin 29 pg (25-35) Mean Corpuscular Hemoglobin Concent 32 g/dL (31-37) Red Cell Distribution Width 16.6 % (11.5-14.5) Platelet Count 209 x10^3/uL (140-400) Neutrophils (%) (Auto) 87 % (31-73) Lymphocytes (%) (Auto) 7 % (24-48) Monocytes (%) (Auto) 6 % (0-9) Eosinophils (%) (Auto) 0 % (0-3) Basophils (%) (Auto) 0 % (0-3) Neutrophils # (Auto) 9.6 x10^3uL (1.8-7.7) Lymphocytes # (Auto) 0.8 x10^3/uL (1.0-4.8) Monocytes # (Auto) 0.6 x10^3/uL (0.0-1.1) Eosinophils # (Auto) 0.0 x10^3/uL (0.0-0.7) Basophils # (Auto) 0.0 x10^3/uL (0.0-0.2) Sodium Level 137 mmol/L (136-145) Potassium Level 4.2 mmol/L (3.5-5.1) Chloride Level 101 mmol/L (98-107) Carbon Dioxide Level 31 mmol/L (21-32) Anion Gap 5 (6-14) Blood Urea Nitrogen 28 mg/dL (7-20) Creatinine 1.4 mg/dL (0.6-1.0) Estimated GFR (Cockcroft-Gault) 35.7 BUN/Creatinine Ratio 20 (6-20) Glucose Level 164 mg/dL (70-99) Calcium Level 7.0 mg/dL (8.5-10.1) Total Bilirubin 0.5 mg/dL (0.2-1.0) Aspartate Amino Transf (AST/SGOT) 12 U/L (15-37) Alanine Aminotransferase (ALT/SGPT) 11 U/L (14-59) Alkaline Phosphatase 42 U/L (46-116) Creatine Kinase 35 U/L (26-192) Troponin I Quantitative 0.072 ng/mL (0-0.055) Total Protein 5.6 g/dL (6.4-8.2) Albumin 2.3 g/dL (3.4-5.0) Albumin/Globulin Ratio 0.7 (1.0-1.7) Glucose (Fingerstick) 245 mg/dL (70-99) Nasal Screen MRSA (PCR) Negative (Negative) Test 10/07/18 21:10 10/08/18 02:54 10/08/18 07:34 10/08/18 11:46 Troponin I Quantitative 0.074 ng/mL (0-0.055) 0.070 ng/mL (0-0.055) Glucose (Fingerstick) 243 mg/dL (70-99) 284 mg/dL (70-99) Test 10/08/18 16:37 10/08/18 19:47 10/09/18 06:22 10/09/18 07:41 Glucose (Fingerstick) 151 mg/dL (70-99) 270 mg/dL (70-99) 183 mg/dL (70-99) White Blood Count 7.9 x10^3/uL (4.0-11.0) Red Blood Count 2.56 x10^6/uL (3.50-5.40) Hemoglobin 7.7 g/dL (12.0-15.5) Hematocrit 23.1 % (36.0-47.0) Mean Corpuscular Volume 90 fL (79-100) Mean Corpuscular Hemoglobin 30 pg (25-35) Mean Corpuscular Hemoglobin Concent 33 g/dL (31-37) Red Cell Distribution Width 16.0 % (11.5-14.5) Platelet Count 198 x10^3/uL (140-400) Sodium Level 136 mmol/L (136-145) Potassium Level 4.2 mmol/L (3.5-5.1) Chloride Level 101 mmol/L (98-107) Carbon Dioxide Level 32 mmol/L (21-32) Anion Gap 3 (6-14) Blood Urea Nitrogen 35 mg/dL (7-20) Creatinine 1.3 mg/dL (0.6-1.0) Estimated GFR (Cockcroft-Gault) 38.9 BUN/Creatinine Ratio 27 (6-20) Glucose Level 175 mg/dL (70-99) Calcium Level 6.9 mg/dL (8.5-10.1) Total Bilirubin 0.5 mg/dL (0.2-1.0) Aspartate Amino Transf (AST/SGOT) 10 U/L (15-37) Alanine Aminotransferase (ALT/SGPT) 11 U/L (14-59) Alkaline Phosphatase 47 U/L (46-116) QD-Zcr-[id number]-Type Natriuretic Peptide 5048 pg/mL (0-449) Total Protein 5.5 g/dL (6.4-8.2) Albumin 2.0 g/dL (3.4-5.0) Albumin/Globulin Ratio 0.6 (1.0-1.7) Medications Current Medications Lidocaine HCl 20 ml STK-MED ONCE .ROUTE ; Start 10/07/18 at 16:52; Stop at 16:53; Status DC Lidocaine HCl 20 ml 1X ONCE SQ Last administered on 10/07/18at 17:40; Start 04/17 at 17:45; Stop 10/07/18 at 18:00; Status DC Influenza Virus Vaccine (Afluria Trivalent [id number] Syringe) 0.5 ml ONCE ONCE VAX IM ; Start 10/07/18 at 17:45; Stop 10/07/18 at 17:46; Status UNV Furosemide (Lasix) 20 mg DAILY PO Last administered on 10/09/18 08:23; Start 10/08/18 at 09:00 Acetaminophen/ Codeine Phosphate (Tylenol #3) 1 tab PRN Q6HRS PRN PO PAIN Last administered on 10/08/18at 11:29; Start 10/07/18 at 21:00 Apixaban (Eliquis) 5 mg BID PO Last administered on 10/08/18 07:57; Start 04/17 at 21:00; Status Future Hold Diltiazem HCl (Cardizem 24hr Cd) 120 mg DAILY PO Last administered on 08:24; Start 10/08/18 at 09:00 Diphenhydramine HCl (Benadryl) 25 mg PRN Q8HRS PRN PO ITCHING; Start 10/07/18 at 21:00 Docusate Sodium (Colace) 100 mg BID PO Last administered on 10/09/18 08:22; Start 10/07/18 at 21:00 Fenofibrate (Tricor) 145 mg DAILY PO Last administered on 10/09/18 08:23; Start 10/08/18 at 09:00 Metoprolol Tartrate (Lopressor) 50 mg BID PO Last administered on 10/09/18 08: 23; Start 10/07/18 at 21:00 Multivitamins/ Calcium (Thera-M Plus) 1 tab DAILY PO Last administered on 08:23; Start 10/08/18 at 09:00 Pantoprazole Sodium (Protonix) 40 mg DAILY PO Last administered on 10/09/18at 08 :23; Start 10/08/18 at 09:00 Ondansetron HCl (Zofran Odt) 4 mg PRN Q6HRS PRN PO NAUSEA/VOMITING; Start 10/07 at 21:00 Albuterol Sulfate (Ventolin) 2.5 mg PRN Q4HRS PRN NEB SHORTNESS OF BREATH Last administered on 10/08/18at 04:45; Start 10/07/18 at 20:45 Insulin Human Lispro (HumaLOG) 0-9 UNITS TIDWMEALS SQ Last administered on 10/09at 08:19; Start 10/08/18 at 08:00 Dextrose 12.5 gm PRN Q15MIN PRN IV SEE COMMENTS; Start 10/07/18 at 21:00 Furosemide (Lasix) 20 mg 1X ONCE PO ; Start 10/08/18 at 11:15; Stop 10/08/18 at 11:16; Status DC Furosemide (Lasix) 20 mg 1X ONCE PO Last administered on 10/08/18at 11:26; Start 10/08/18 at 11:30; Stop 10/08/18 at 11:31; Status DC Vancomycin HCl (Vanco Per Pharmacy) 1 each PRN DAILY PRN MC SEE COMMENTS; Start 10/08/18 at 16:15 Meropenem 500 mg/ Sodium Chloride 50 ml @ 100 mls/hr Q8HRS IV Last administered on 10/09/18at 06:26; Start 10/08/18 at 22:00 Vancomycin HCl 2 gm/Sodium Chloride 500 ml @ 250 mls/hr 1X ONCE IV ; Start 05/18 at 16:30; Stop 10/08/18 at 17:07; Status DC Vancomycin HCl 2 gm/Sodium Chloride 500 ml @ 250 mls/hr 1X ONCE IV Last administered on 10/08/18at 23:41; Start 10/08/18 at 21:00; Stop 10/08/18 at 22:59 ; Status DC Insulin Glargine (Lantus) 5 units 1X ONCE SQ Last administered on 10/08/18at 22 :12; Start 10/08/18 at 21:45; Stop 10/08/18 at 21:49; Status DC Active Scripts Active Eliquis (Apixaban) 5 Mg Tablet 5 Mg PO BID 60 Days Diltiazem 24HR Cd (Diltiazem Hcl) 120 Mg Cap.er.24h 1 Cap PO DAILY Reported Lasix (Furosemide) 20 Mg Tablet 20 Mg PO DAILY Diphenhydramine Hcl 25 Mg Tablet 25 Mg PO PRN Q8HRS PRN Ondansetron Odt (Ondansetron) 4 Mg Tab.rapdis 4 Mg PO PRN Q6HRS PRN Multivitamins (Multivitamin) 1 Each Tablet 1 Tab PO DAILY Metoprolol Tartrate 50 Mg Tablet 1 Tab PO BID Colace (Docusate Sodium) 100 Mg Capsule 1 Cap PO BID Tylenol With Codeine #3 Tablet (Acetaminophen With Codeine) 1 Each Tablet 1 Tab PO Q6HRS PRN Novolog (Insulin Aspart) 100 Unit/1 Ml Cartridge 0 SQ QIDACHS PRN Proventil Hfa Inhaler (Albuterol Sulfate) 6.7 Gm Hfa.aer.ad 1 Puff INH PRN Q4HRS PRN Omeprazole 20 Mg Capsule.dr 1 Cap PO DAILY Fenofibrate 160 Mg Tablet 1 Tab PO DAILY Vitals/I & O Vital Sign - Last 24 Hours 10/08/18 10/08/18 10/08/18 10/08/18 10:51 15:00 19:36 20:30 Temp 99.1 99.1 98.9 Pulse 72 70 84 Resp 18 18 24 B/P (MAP) 137/65 (89) 116/65 (82) 127/72 (90) Pulse Ox 94 95 94 O2 Delivery Nasal Cannula Nasal Cannula Nasal Cannula Nasal Cannula O2 Flow Rate 3.0 3.0 3.0 3.0 10/08/18 10/08/18 10/09/18 10/09/18 21:09 22:48 05:46 08:23 Temp 97.9 98.6 Pulse 78 78 88 88 Resp 24 22 B/P (MAP) 122/52 137/76 (96) 137/63 (87) 137/63 Pulse Ox 92 92 O2 Delivery Nasal Cannula Nasal Cannula O2 Flow Rate 3.0 3.0 10/09/18 08:24 Pulse 88 B/P (MAP) 137/63 Intake and Output 10/08/18 10/08/18 10/09/18 15:00 23:00 07:00 Intake Total 600 ml 120 ml 600 ml Output Total 200 ml 700 ml 150 ml Balance 400 ml -580 ml 450 ml TING SOLANO DELIVERY REP Oct 09, 2018 09:18
[2018-10-09 10:46] VITALS: BP 134/78
--- NOTE | 2018-10-09 11:00 | NUR ---
Natalia Dickerson requesting information on patient this morning. Per report DPOA Rhiannon states that no information to be given to Natalia Dickerson about patient's medical status. Patient and Daughter Tuan expressed concerns regarding DPOA status and patient's ability to make decisions. Patient requesting that Tuan receive medical information, Patient is alert and oriented and able to make decisions about health care. Copy of DPOA paperwork requested and reviewed by this nurse. Per paperwork, DPOA is only valid when patient is unable to make own health care decisions. Matter discussed with DON, per patient request, natalia Dickerson is to be given patient pass code for access to patient medical information. Case management notified of situation and patient requesting to speak with case management.
[2018-10-09] MEDS: VANCOMYCIN PER PHARMACY MC PRN (11:01)
--- NOTE | 2018-10-09 11:01 | NUR ---
Pharmacy Vancomycin Dosing Note S:Consulted to monitor and dose vancomycin started 10/08/18. O:ILANA MALONEY is a 83 year old F with Pneumonia Height: 5 feet, 5 inches Weight: 85.202337 kg [place] Body Weight: 57.00 Adjusted Body Weight: 68.56 Dosing Weight: Actual Other Antibiotics: MERREM LABS: Last BUN: 35 Last Creatinine: 1.3 Creatinine Clearance: 34.2 Last WBC: 7.9 Vancomycin Dosing: Loading Dose: x1 Dosing Weight: Actual Target Trough: 15-20 A: Initial dosing is based on height, actual weight, renal function, and indication. P: 1. Give Vancomycin 2000mg IV initially (Given 10/08/18 @ 2300), then Vancomycin 1250mg IV q24h 2. Follow up Trough level on 10/10/18 at 2230 3. Pharmacy will continue to monitor, follow and adjust therapy as needed. TAMERA KIRAN, Juan C 10/09/18 0840
[2018-10-09] MEDS ORDERED: FUROSEMIDE 20 MG/2 ML VIAL IVP ONE (12:00)
[2018-10-09 14:45] VITALS: BP 146/82
[2018-10-09 19:10] VITALS: BP 113/64
[2018-10-09] MEDS: LACTOBACILLUS RHAMNOSUS GG 1 CAPSULE. PO SCH (20:53)
[2018-10-09 22:50] VITALS: BP 138/68
[2018-10-09] MEDS: VANCOMYCIN 1.25 GM in IV NORMAL SALINE 250ML 250 ML IV SCH (23:13)
--- NOTE | 2018-10-10 00:48 | PN ---
DATE: 10/09/2018 SUBJECTIVE: The patient is resting, slightly propped up in bed, slightly tachypneic; however, the patient apparently was sitting in a chair, has eaten her breakfast, and worked with physical therapy. PHYSICAL EXAMINATION: GENERAL: When I examined her, she looked pale, but no jaundice, cyanosis, or thyromegaly. No jugular venous distension. No limb edema. VITAL SIGNS: Her heart rate was 74, blood pressure was 134/78, temperature was 98.6, respiratory rate was 22, and oxygen saturation was 91% on 3 liters of oxygen by nasal cannula. HEAD, EYES, EARS, NOSE, AND THROAT: Normocephalic, atraumatic. NECK: Supple. HEART: Showed normal first and second sounds. No gallop, rub, or murmur. CHEST: Shows central trachea, equal bilateral expansion, air entry, with crepitation mostly on the left side posteriorly. I could not appreciate any rhonchi. ABDOMEN: Distended, soft, nontender. NEUROLOGIC: She was sleepy, but arousable. All her cranial nerves are intact. She moves extremities without difficulty. She apparently has managed to walk with a walker. LABORATORY DATA: Her lab work this morning showed a white cell count 7900, hemoglobin 7.7, hematocrit 23, MCV 90, and platelet count of 198,000. Her chemistry showed a serum sodium 136, potassium 4.2, chloride 101, bicarbonate 32, anion gap of 3, BUN 35, creatinine 1.3, estimated GFR was 175 mL per minute. Her glucose was 183, calcium was 6.9. Total bilirubin, AST, ALT, alkaline phosphatase were normal. Her beta natriuretic peptide was 5000. Total protein was 5.5, albumin was 2. Her nasal screen for MRSA by PCR was negative. ASSESSMENT: 1. [id number] diastolic congestive heart failure. 2. Healthcare-associated pneumonia. 3. Hypertension. 4. Type 2 diabetes mellitus, seem to be reasonably controlled. 5. Peripheral vascular disease. 6. Chronic lower extremity wounds. PLAN: My plan is to continue with IV antibiotics. Continue with diuretics. Continue with all other medications. The patient seems to be slightly better today than yesterday. She is more awake. She has participated with physical therapy. GEOFFREY MARTI MD DR: JOSHUA/carlos JOB#: [id number] / [id number]
[2018-10-10 05:10] VITALS: BP 133/72
[2018-10-10] MEDS: MEROPENEM 500 MG in IV NORMAL SALINE 50ML 50 ML IV SCH ×3 (06:02→21:51)
[2018-10-10] MEDS: INSULIN LISPRO 300 UNITS/3 ML INSULN.PEN. SQ SCH ×3 (08:00→17:23)
[2018-10-10] MEDS: PANTOPRAZOLE 40 MG TABLET. PO SCH (08:31)
[2018-10-10] MEDS: LACTOBACILLUS RHAMNOSUS GG 1 CAPSULE. PO SCH ×2 (08:31→20:39)
[2018-10-10] MEDS: FUROSEMIDE 20 MG TABLET PO SCH (08:31)
[2018-10-10] MEDS: DOCUSATE SODIUM 100 MG CAPSULE PO SCH ×2 (08:31→20:39)
[2018-10-10] MEDS: MULTIVITAMIN with MINERAL TABLET. PO SCH (08:31)
[2018-10-10] MEDS: METOPROLOL TART IMMED RELEASE 50 MG TABLET PO SCH ×2 (08:32→20:40)
[2018-10-10] MEDS: FENOFIBRATE NANOCRYSTALLIZED 145 MG TABLET PO SCH (08:33)
[2018-10-10] MEDS ORDERED: FUROSEMIDE 20 MG/2 ML VIAL IVP ONE (09:45)
[2018-10-10 10:50] VITALS: BP 130/73
[2018-10-10 15:06] VITALS: BP 156/66
[2018-10-10 16:26] LABS: FECAL OB PT POSITIVE (NEG)
[2018-10-10 19:58] VITALS: BP 150/76
[2018-10-10 22:33] VITALS: BP 135/79
[2018-10-10 23:30] LABS: VANC TR 13.7 mcg/mL (10.0-20.0)
--- NOTE | 2018-10-11 00:44 | PN ---
DATE: 10/10/2018 SUBJECTIVE: An 83-year-old female resident at [facility]. The patient came in initially for chest pain. The patient is noted that she has a pneumonic process. She is receiving IV antibiotic therapy. She seems to be gaining a little bit of strength. She also has problems with heart failure. The patient continues on vancomycin and meropenem. Otherwise, the patient says she feels a little bit better. OBJECTIVE: VITAL SIGNS: Blood pressure 130/70, respiratory rate 24, pulse 84, and afebrile 3 liters at 98%. GENERAL: The patient is alert and oriented. LUNGS: Diminished, poor movement of air in the bases. Some decreased breath sounds and crepitance in the bases, otherwise. ABDOMEN: Soft, nontender. EXTREMITIES: No clubbing, cyanosis, nor edema. IMPRESSION AND PLAN: Acute on chronic diastolic heart failure; pneumonia of unknown etiology, fpc acquired; essential hypertension; type 2 diabetes, under control; PVD; and chronic leg wounds. The patient continued on IV antibiotic therapy, diuresis, and cardiology consultation. DAISY HAMMOND MD DR: EFFIE/carlos JOB#: [id number] / [id number]
[2018-10-11] MEDS: VANCOMYCIN 1.25 GM in IV NORMAL SALINE 250ML 250 ML IV SCH ×2 (00:50→23:11)
[2018-10-11 05:11] VITALS: BP 184/62
[2018-10-11 06:28] VITALS: BP 149/76
[2018-10-11] MEDS: MEROPENEM 500 MG in IV NORMAL SALINE 50ML 50 ML IV SCH ×3 (06:30→21:19)
[2018-10-11] MEDS: PANTOPRAZOLE 40 MG TABLET. PO SCH (08:43)
[2018-10-11] MEDS: FENOFIBRATE NANOCRYSTALLIZED 145 MG TABLET PO SCH (08:43)
[2018-10-11] MEDS: METOPROLOL TART IMMED RELEASE 50 MG TABLET PO SCH ×2 (08:43→20:22)
[2018-10-11] MEDS: MULTIVITAMIN with MINERAL TABLET. PO SCH (08:43)
[2018-10-11] MEDS: LACTOBACILLUS RHAMNOSUS GG 1 CAPSULE. PO SCH ×2 (08:43→20:22)
[2018-10-11] MEDS: FUROSEMIDE 20 MG TABLET PO SCH (08:44)
[2018-10-11] MEDS: DOCUSATE SODIUM 100 MG CAPSULE PO SCH ×2 (08:44→20:22)
[2018-10-11] MEDS: VANCOMYCIN PER PHARMACY MC PRN (09:03)
[2018-10-11 09:04] LABS: BASO % 1 % (0-3); EOS % 0 % (0-3); HEMATOCRIT 25.2 % (36.0-47.0); HEMOGLOBIN 8.1 g/dL (12.0-15.5); LYMPH # 0.4 x10^3/uL (1.0-4.8); LYMPH % 7 % (24-48); MEAN CORPUSCULAR HEMOGLOBIN 29 pg (25-35); MEAN CORPUSCULAR HGB CONC 32 g/dL (31-37); MEAN CORPUSCULAR VOLUME 90 fL (79-100); MONO # 0.4 x10^3/uL (0.0-1.1); MONO % 7 % (0-9); NEUT # 4.9 x10^3uL (1.8-7.7); NEUT % 85 % (31-73); PLATELET COUNT 230 x10^3/uL (140-400); RED BLOOD COUNT 2.79 x10^6/uL (3.50-5.40); RED CELL DISTRIBUTION WIDTH 16.3 % (11.5-14.5); WHITE BLOOD COUNT 5.8 x10^3/uL (4.0-11.0)
--- NOTE | 2018-10-11 09:06 | NUR ---
Pharmacy Vancomycin Dosing Note S:Consulted to monitor and dose vancomycin started 10/08/18. O:ILANA MALONEY is a 83 year old F with Pneumonia, . Height: 5 feet, 5 inches Weight: 85.870221 kg [place] Body Weight: 57.00 Adjusted Body Weight: 68.56 Dosing Weight: Actual Other Antibiotics: MERREM LABS: Last BUN: 35 Last Creatinine: 1.3 Creatinine Clearance: 34.2 Last WBC: 7.9 Drug Levels: Last Trough level: 13.7 on 10/10/18 at 2230 Last dose given 10/09/18 at 2300 Vancomycin Dosing: Loading Dose: x1 Dosing Weight: Actual Target Trough: 15-20 A: Based on: Trough P: 1. Continue Vancomycin 1250 mg IV q24h 2. Follow up Trough level on 10/13/18 at 2230 3. Pharmacy will continue to monitor, follow and adjust therapy as needed. GRISELDA HERNÁNDEZ, 10/11/18 0906
[2018-10-11 09:15] LABS: CALCIUM 7.3 mg/dL (8.5-10.1); CREATININE 1.1 mg/dL (0.6-1.0); GFR 47.2; POTASSIUM 3.9 mmol/L (3.5-5.1)
--- NOTE | 2018-10-11 10:54 | RAD ---
PA and lateral chest. HISTORY: Short of breath PA and lateral views of the chest were compared with a recent study. Heart is upper normal in size. Left PICC line is unchanged. There are small pleural effusion. There are mild bilateral areas of infiltrate with a mild interval improvement compared to the study from October 08. IMPRESSION: 1. Mild improvement with persistent bilateral infiltrates. 2. Small effusions. Electronically signed by: Osmel Diaz MD (10/11/2018 10:51 AM) [facility]
[2018-10-11 11:17] VITALS: BP 158/56
[2018-10-11] MEDS: INSULIN LISPRO 300 UNITS/3 ML INSULN.PEN. SQ SCH ×3 (14:10→18:22)
[2018-10-11 15:55] VITALS: BP 146/62
[2018-10-11 19:05] VITALS: BP 146/65
[2018-10-12 00:19] VITALS: BP 173/89
[2018-10-12 05:00] VITALS: BP 135/68
[2018-10-12] MEDS: MEROPENEM 500 MG in IV NORMAL SALINE 50ML 50 ML IV SCH ×2 (05:53→14:00)
[2018-10-12] MEDS: FENOFIBRATE NANOCRYSTALLIZED 145 MG TABLET PO SCH (08:07)
[2018-10-12] MEDS: LACTOBACILLUS RHAMNOSUS GG 1 CAPSULE. PO SCH (08:07)
[2018-10-12] MEDS: METOPROLOL TART IMMED RELEASE 50 MG TABLET PO SCH (08:07)
[2018-10-12] MEDS: DOCUSATE SODIUM 100 MG CAPSULE PO SCH (08:08)
[2018-10-12] MEDS: PANTOPRAZOLE 40 MG TABLET. PO SCH (08:08)
[2018-10-12] MEDS: FUROSEMIDE 20 MG TABLET PO SCH (08:08)
[2018-10-12] MEDS: MULTIVITAMIN with MINERAL TABLET. PO SCH (08:08)
[2018-10-12] MEDS: INSULIN LISPRO 300 UNITS/3 ML INSULN.PEN. SQ SCH ×2 (08:15→12:25)
--- NOTE | 2018-10-12 09:13 | PDOC ---
PROGRESS NOTES Assessment 1. atypical chest pain with minimal trop elevation. small Inferoapical defect on November 2017, MPI. Echo in November 2017 with normal Ef and wall motion. Continue RF reduction, and medical mgmt. 2. chronic atrial fibrillation - rate remains controlled. 3. chronic diastolic heart failure - no sig pulmonary vascular congestion. sm effusion. 4. Pneumonia - abx, per PCP 5. Anemia - Hgb remains stable, Heme check positive x 1, consider GI referral. Eliquis being held. Subjective Up in chair, appears less dyspneic today. Denies chest pain or palpitations. Objective Vital Signs Date Time Temp Pulse Resp B/P (MAP) Pulse Ox O2 Delivery O2 Flow Rate FiO2 10/12/18 08:08 82 135/68 10/12/18 08:00 Nasal Cannula 3.0 10/12/18 05:00 98.4 20 91 Intake and Output 10/12/18 07:00 Intake Total 360 ml Balance 360 ml Intake Oral 360 ml # Voids 10 # Bowel Movements 1 Physical Exam gen: awake, alert, NAD CV : IRR, no gallops, clicks or rubs Lungs: few left basilar crackles, otherwise clear abd: +bowel sounds Ext: 2+ edema Review of Relevant I have reviewed the following items kassandra (where applicable) has been applied. Labs Laboratory Tests Test 10/10/18 12:05 10/10/18 12:18 10/10/18 16:56 10/10/18 20:19 Stool Occult Blood Positive (NEG) Glucose (Fingerstick) 346 mg/dL (70-99) 154 mg/dL (70-99) 162 mg/dL (70-99) Test 10/10/18 22:30 10/11/18 07:50 10/11/18 08:55 10/11/18 11:56 Vancomycin Level Trough 13.7 mcg/mL (10.0-20.0) Vancomycin Last Dose Date 10-09-18 Vancomycin Last Dose Time 2300 Glucose (Fingerstick) 206 mg/dL (70-99) 190 mg/dL (70-99) White Blood Count 5.8 x10^3/uL (4.0-11.0) Red Blood Count 2.79 x10^6/uL (3.50-5.40) Hemoglobin 8.1 g/dL (12.0-15.5) Hematocrit 25.2 % (36.0-47.0) Mean Corpuscular Volume 90 fL (79-100) Mean Corpuscular Hemoglobin 29 pg (25-35) Mean Corpuscular Hemoglobin Concent 32 g/dL (31-37) Red Cell Distribution Width 16.3 % (11.5-14.5) Platelet Count 230 x10^3/uL (140-400) Neutrophils (%) (Auto) 85 % (31-73) Lymphocytes (%) (Auto) 7 % (24-48) Monocytes (%) (Auto) 7 % (0-9) Eosinophils (%) (Auto) 0 % (0-3) Basophils (%) (Auto) 1 % (0-3) Neutrophils # (Auto) 4.9 x10^3uL (1.8-7.7) Lymphocytes # (Auto) 0.4 x10^3/uL (1.0-4.8) Monocytes # (Auto) 0.4 x10^3/uL (0.0-1.1) Eosinophils # (Auto) 0.0 x10^3/uL (0.0-0.7) Basophils # (Auto) 0.0 x10^3/uL (0.0-0.2) Sodium Level 140 mmol/L (136-145) Potassium Level 3.9 mmol/L (3.5-5.1) Chloride Level 101 mmol/L (98-107) Carbon Dioxide Level 35 mmol/L (21-32) Anion Gap 4 (6-14) Blood Urea Nitrogen 25 mg/dL (7-20) Creatinine 1.1 mg/dL (0.6-1.0) Estimated GFR (Cockcroft-Gault) 47.2 Glucose Level 282 mg/dL (70-99) Calcium Level 7.3 mg/dL (8.5-10.1) Test 10/11/18 17:00 10/11/18 21:30 10/12/18 07:27 Glucose (Fingerstick) 262 mg/dL (70-99) 137 mg/dL (70-99) 262 mg/dL (70-99) Medications Current Medications Lidocaine HCl 20 ml STK-MED ONCE .ROUTE ; Start 10/07/18 at 16:52; Stop at 16:53; Status DC Lidocaine HCl 20 ml 1X ONCE SQ Last administered on 10/07/18at 17:40; Start 04/17 at 17:45; Stop 10/07/18 at 18:00; Status DC Influenza Virus Vaccine (Afluria Trivalent [id number] Syringe) 0.5 ml ONCE ONCE VAX IM ; Start 10/07/18 at 17:45; Stop 10/07/18 at 17:46; Status UNV Furosemide (Lasix) 20 mg DAILY PO Last administered on 10/12/18at 08:08; Start 10/08/18 at 09:00 Acetaminophen/ Codeine Phosphate (Tylenol #3) 1 tab PRN Q6HRS PRN PO PAIN Last administered on 10/08/18 11:29; Start 10/07/18 at 21:00 Apixaban (Eliquis) 5 mg BID PO Last administered on 10/08/18 07:57; Start 04/17 at 21:00; Status Future Hold Diltiazem HCl (Cardizem 24hr Cd) 120 mg DAILY PO Last administered on 08:08; Start 10/08/18 at 09:00 Diphenhydramine HCl (Benadryl) 25 mg PRN Q8HRS PRN PO ITCHING; Start 10/07/18 at 21:00 Docusate Sodium (Colace) 100 mg BID PO Last administered on 10/12/18 08:08; Start 10/07/18 at 21:00 Fenofibrate (Tricor) 145 mg DAILY PO Last administered on 10/12/18 08:07; Start 10/08/18 at 09:00 Metoprolol Tartrate (Lopressor) 50 mg BID PO Last administered on 10/12/18 08: 07; Start 10/07/18 at 21:00 Multivitamins/ Calcium (Thera-M Plus) 1 tab DAILY PO Last administered on 08:08; Start 10/08/18 at 09:00 Pantoprazole Sodium (Protonix) 40 mg DAILY PO Last administered on 10/12/18 08 :08; Start 10/08/18 at 09:00 Ondansetron HCl (Zofran Odt) 4 mg PRN Q6HRS PRN PO NAUSEA/VOMITING; Start 10/07 at 21:00 Albuterol Sulfate (Ventolin) 2.5 mg PRN Q4HRS PRN NEB SHORTNESS OF BREATH Last administered on 10/08/18at 04:45; Start 10/07/18 at 20:45 Insulin Human Lispro (HumaLOG) 0-9 UNITS TIDWMEALS SQ Last administered on 10/12at 08:15; Start 10/08/18 at 08:00 Dextrose 12.5 gm PRN Q15MIN PRN IV SEE COMMENTS; Start 10/07/18 at 21:00 Furosemide (Lasix) 20 mg 1X ONCE PO ; Start 10/08/18 at 11:15; Stop 10/08/18 at 11:16; Status DC Furosemide (Lasix) 20 mg 1X ONCE PO Last administered on 10/08/18at 11:26; Start 10/08/18 at 11:30; Stop 10/08/18 at 11:31; Status DC Vancomycin HCl (Vanco Per Pharmacy) 1 each PRN DAILY PRN MC SEE COMMENTS Last administered on 10/11/18at 09:03; Start 10/08/18 at 16:15 Meropenem 500 mg/ Sodium Chloride 50 ml @ 100 mls/hr Q8HRS IV Last administered on 10/12/18at 05:53; Start 10/08/18 at 22:00 Vancomycin HCl 2 gm/Sodium Chloride 500 ml @ 250 mls/hr 1X ONCE IV ; Start 05/18 at 16:30; Stop 10/08/18 at 17:07; Status DC Vancomycin HCl 2 gm/Sodium Chloride 500 ml @ 250 mls/hr 1X ONCE IV Last administered on 10/08/18at 23:41; Start 10/08/18 at 21:00; Stop 10/08/18 at 22:59 ; Status DC Insulin Glargine (Lantus) 5 units 1X ONCE SQ Last administered on 10/08/18at 22 :12; Start 10/08/18 at 21:45; Stop 10/08/18 at 21:49; Status DC Vancomycin HCl 1.25 gm/Sodium Chloride 250 ml @ 167 mls/hr Q24H IV Last administered on 10/11/18at 23:11; Start 10/09/18 at 23:00 Vancomycin HCl (Vancomycin Trough Level) 1 each 1X ONCE MC Last administered on 10/10/18at 22:30; Start 10/10/18 at 22:30; Stop 10/10/18 at 22:31; Status DC Furosemide (Lasix) 20 mg 1X ONCE IVP Last administered on 10/09/18at 11:54; Start 10/09/18 at 12:00; Stop 10/09/18 at 12:01; Status DC Lactobacillus Rhamnosus (Culturelle) 1 cap BID PO Last administered on at 08:07; Start 10/09/18 at 21:00 Furosemide (Lasix) 20 mg 1X ONCE IVP Last administered on 10/10/18at 09:59; Start 10/10/18 at 09:45; Stop 10/10/18 at 09:46; Status DC Vancomycin HCl (Vancomycin Trough Level) 1 each 1X ONCE MC ; Start 10/13/18 at 22:30; Stop 10/13/18 at 22:31 Active Scripts Active Eliquis (Apixaban) 5 Mg Tablet 5 Mg PO BID 60 Days Diltiazem 24HR Cd (Diltiazem Hcl) 120 Mg Cap.er.24h 1 Cap PO DAILY Reported Lasix (Furosemide) 20 Mg Tablet 20 Mg PO DAILY Diphenhydramine Hcl 25 Mg Tablet 25 Mg PO PRN Q8HRS PRN Ondansetron Odt (Ondansetron) 4 Mg Tab.rapdis 4 Mg PO PRN Q6HRS PRN Multivitamins (Multivitamin) 1 Each Tablet 1 Tab PO DAILY Metoprolol Tartrate 50 Mg Tablet 1 Tab PO BID Colace (Docusate Sodium) 100 Mg Capsule 1 Cap PO BID Tylenol With Codeine #3 Tablet (Acetaminophen With Codeine) 1 Each Tablet 1 Tab PO Q6HRS PRN Novolog (Insulin Aspart) 100 Unit/1 Ml Cartridge 0 SQ QIDACHS PRN Proventil Hfa Inhaler (Albuterol Sulfate) 6.7 Gm Hfa.aer.ad 1 Puff INH PRN Q4HRS PRN Omeprazole 20 Mg Capsule.dr 1 Cap PO DAILY Fenofibrate 160 Mg Tablet 1 Tab PO DAILY Vitals/I & O Vital Sign - Last 24 Hours 10/11/18 10/11/18 10/11/18 10/11/18 11:17 15:55 19:05 20:22 Temp 97.4 98.3 98.2 Pulse 75 77 88 77 Resp 22 18 22 B/P (MAP) 158/56 (90) 146/62 (90) 146/65 (92) 146/62 Pulse Ox 100 96 97 O2 Delivery Nasal Cannula Nasal Cannula O2 Flow Rate 3.0 3.0 10/11/18 10/12/18 10/12/18 10/12/18 20:51 00:19 05:00 08:00 Temp 97.3 98.4 Pulse 92 82 Resp 20 20 B/P (MAP) 173/89 (117) 135/68 (90) Pulse Ox 92 91 O2 Delivery Nasal Cannula Nasal Cannula Nasal Cannula Nasal Cannula O2 Flow Rate 3.0 3.0 3.0 3.0 10/12/18 10/12/18 08:07 08:08 Pulse 82 82 B/P (MAP) 135/68 135/68 Intake and Output 10/11/18 10/11/18 10/12/18 15:00 23:00 07:00 Intake Total 360 ml Balance 360 ml TING SOLANO [employer] Oct 12, 2018 09:13
[2018-10-12 10:12] VITALS: BP 144/59
[2018-10-12] MEDS ORDERED: DOXY100C2 PO (12:26)
--- NOTE | 2018-10-12 12:31 | DISCH ---
DISCHARGE ORDERS CONDITION AT DISCHARGE: Stable Code Status: DNR/DNI SNF STAY <30 DAYS: Yes POST DISCHARGE ORDERS: ACTIVITY ORDERS: Resume previous activity, Activity as tolerated DIET AFTER DISCHARGE: Cardiac TREATMENT/EQUIPMENT ORDERS: ADAPTIVE EQUIPMENT NEEDED: None DISCHARGE MEDICATIONS: Home Meds Active Scripts Doxycycline Hyclate (DOXYCYCLINE HYCLATE) 100 Mg Capsule, 1 CAP PO BID for hcap for 7 Days, #14 CAP Prov:GEOFFREY MARTI MD 10/12/18 Diltiazem Hcl (DILTIAZEM 24HR CD) 120 Mg Cap.er.24h, 1 CAP PO DAILY, #90 CAP 1 Refill Prov:GEOFFREY MARTI MD 11/02/17 Reported Medications Furosemide (LASIX) 20 Mg Tablet, 20 MG PO DAILY for EDEMA, TAB 10/07/18 Ondansetron (ONDANSETRON ODT) 4 Mg Tab.rapdis, 4 MG PO PRN Q6HRS PRN for NAUSEA/ VOMITING, TAB 10/07/18 Multivitamin (MULTIVITAMINS) 1 Each Tablet, 1 TAB PO DAILY for SUPPLEMENT, #90 TAB 3 Refills 10/07/18 Metoprolol Tartrate (METOPROLOL TARTRATE) 50 Mg Tablet, 1 TAB PO BID for HTN, # 60 TAB 5 Refills 10/07/18 Docusate Sodium (COLACE) 100 Mg Capsule, 1 CAP PO BID for stool softener, #30 CAP 10/07/18 Acetaminophen With Codeine (TYLENOL WITH CODEINE #3 TABLET) 1 Each Tablet, 1 TAB PO Q6HRS PRN for PAIN, #30 TAB 09/09/18 Insulin Aspart (NOVOLOG) 100 Unit/1 Ml Cartridge, 0 SQ QIDACHS PRN for dm, SYR 09/09/18 Albuterol Sulfate (PROVENTIL HFA INHALER) 6.7 Gm Hfa.aer.ad, 1 PUFF INH PRN Q4HRS PRN for FOR ASTHMA, INHALER 0 Refills 08/23/18 Omeprazole (OMEPRAZOLE) 20 Mg Capsule.dr, 1 CAP PO DAILY for heartburn, #30 CAP 5 Refills 08/23/18 Fenofibrate (FENOFIBRATE) 160 Mg Tablet, 1 TAB PO DAILY, #30 TAB 5 Refills 10/27/17 Discontinued Reported Medications Diphenhydramine Hcl (DIPHENHYDRAMINE HCL) 25 Mg Tablet, 25 MG PO PRN Q8HRS PRN for ITCHING, TAB 10/07/18 Diphenhydramine Hcl (BENADRYL ALLERGY) 12.5 Mg/5 Ml Liquid, 25 MG PO Q8HRS PRN for ITCHING, LIQUID 10/07/18 Ondansetron Hcl (ZOFRAN) 4 Mg Tablet, 4 MG PO Q6HRS for nausea/vomiting, TAB 10/07/18 Insulin Glargine,Hum.rec.anlog (LANTUS SOLOSTAR) 100 Unit/1 Ml Insuln.pen, 25 UNIT SQ DAILY for dm, #15 ML 5 Refills 09/09/18 Triamcinolone Acetonide (TRIAMCINOLONE ACETONIDE) 15 Gm Cream..g., 1 JOVANNI TP BID for rash, #30 GM 08/23/18 Pioglitazone Hcl (ACTOS) 30 Mg Tablet, 1 TAB PO DAILYBFRLUN, #30 TAB 5 Refills 10/27/17 Zolpidem Tartrate (ZOLPIDEM TARTRATE) 10 Mg Tablet, 0.5 TAB PO QHS for sleep, # 30 TAB 2 Refills 10/27/17 Discontinued Scripts Apixaban (ELIQUIS) 5 Mg Tablet, 5 MG PO BID for 60 Days, #120 TAB 5 Refills Prov:GEOFFREY MARTI MD 11/02/17 GEOFFREY MARTI MD Oct 12, 2018 12:31
[2018-10-12] MEDS ORDERED: LEVO750T31 PO (12:43)
--- NOTE | 2018-10-12 12:55 | DS ---
DATE OF DISCHARGE: 10/12/2018 HOSPITAL COURSE: The patient is sitting in her chair comfortably, eating her lunch comfortably, in no apparent distress. Questioning her, she said that she is feeling much better. The nursing staff stated that she is much improved. She is now walking with a walker to the bathroom, not using any bedside commode. Denied any chest pain and no shortness of breath. ALLERGIES: She is allergic to PENICILLIN, SULFA DRUGS, ERYTHROMYCIN, IBUPROFEN, TETRACYCLINE. OBJECTIVE: GENERAL: When I examined her this afternoon, she looked pale, but no jaundice, cyanosis, or thyromegaly. No jugular venous distension. No limb edema. VITAL SIGNS: Her heart rate was 80, blood pressure 144/59, temperature was 98.3, respiratory rate was 20, and oxygen saturation was 98% on 3 liters of oxygen by nasal cannula. HEAD, EYES, EARS, NOSE AND THROAT: Showed normocephalic, atraumatic. NECK: Supple. HEART: Showed normal first and second heart sounds. No gallop, rub or murmur. CHEST: Clear to auscultation. No crepitation or rhonchi. ABDOMEN: Distended, soft, nontender. NEUROLOGIC: She is awake, alert, responding appropriately. All cranial nerves intact. She moves extremities without difficulty. She ambulates with a walker. Her intake over the last 24 hours was 900, output was 900. LABORATORY DATA: As of this morning, her white cell count of yesterday was 5800, hemoglobin 8.1, hematocrit 25, MCV 90 and platelet count of 230,000. Her chemistry showed a serum sodium 140, potassium 3.9, chloride 101, bicarbonate 35, anion gap of 4, BUN 25, creatinine 1.1, estimated GFR was 47.2 mL, glucose was 182, calcium was 7.3. Her toxic screen showed that her vancomycin was within therapeutic range. Her stool for occult blood was positive. DISCHARGE MEDICATIONS: She will be discharged back to [facility] to continue on doxycycline 100 mg twice a day for 7 days, Tylenol No. 3 one tablet every 6 hours, albuterol sulfate 1 puff every 4 hours, diltiazem hydrochloride 120 mg once a day, docusate sodium 100 mg twice a day, fenofibrate 160 mg daily, furosemide 20 mg daily. She is on NovoLog insulin as per insulin sliding scale before meals, metoprolol tartrate 50 mg twice a day, multivitamin 1 tablet once a day, omeprazole 20 mg once a day, ondansetron 4 mg p.r.n. for every 6 hours for nausea and vomiting. I discontinued her apixaban and diphenhydramine. FINAL DISCHARGE DIAGNOSES: 1. Chest pain, atypical with minimal elevation of troponin. 2. Chronic atrial fibrillation, rate controlled. We discontinued her apixaban as her H and H is drifting down. 3. Chronic diastolic congestive heart failure. 4. Pneumonia for which we treated her for with vancomycin and meropenem. PLAN: I will discharge her on Levaquin to continue the course of treatment anemia, likely due to gastrointestinal bleeding. Eliquis was discontinued. GEOFFREY MARTI MD DR: JOSHUA/carlos JOB#: [id number] / [id number]
--- NOTE | 2018-10-12 13:22 | NUR ---
PICC LINE REMOVAL ORDER FROM DR MARTI TO REMOVE PICC LINE. PT GOING BACK TO [facility] TODAY. EDUCATION FOR PT ABOUT PICC LINE REMOVAL GIVEN. DIRECT PRESSURE APPLIED FOR 5 MIN POST REMOVAL AND PRESSURE DRESSING APPLIED. NO COMPLICATIONS. KEYA BAXTER.
--- NOTE | 2018-10-12 14:42 | NUR ---
NURSING NOTE DISCHARGE PT DISCHARGED TO [facility] AT 1445. REPORT CALLED TO [facility] AT [facility]. WRITTEN CHART COPIED AND SENT WITH PT. NO COMPLICATIONS KEYA SHEIKH.
--- NOTE | 2018-10-12 21:23 | PN ---
DATE: SUBJECTIVE: This is an 83-year-old female. The patient has a combination of the healthcare-associated pneumonia and [id number]-fr-hvhakbt diastolic congestive heart failure. She is feeling somewhat better today. OBJECTIVE: VITAL SIGNS: Blood pressure 158/56, respiratory rate 22, pulse 75 and afebrile. LUNGS: Show some rhonchi in the bases, markedly improved. Recent chest x-ray shows improvement of her infiltrative process. CARDIOVASCULAR: Irregular regular rhythm. ABDOMEN: Soft. EXTREMITIES: No clubbing, cyanosis. Trace edema. NEUROLOGIC: Much more alert than she has been. IMPRESSION: Ibdwr-qw-kulwmkn diastolic heart failure, pneumonia of unspecified etiology, jail acquired, essential hypertension, type 2 diabetes, under control, mild dementia, chronic leg wounds, and anemia of chronic disease. The patient continues on IV antibiotic therapy along with Cardiology consultation and making excellent progress overall. DAISY HAMMOND MD DR: EFFIE/carlos JOB#: [id number] / [id number]
== END 2018-10-12 14:44 | DRG 871 ==
LOC: 1 SOUTH 14:44
PROVIDERS: ADMIT Internal Medicine; ATTEND Internal Medicine
DX: A41.9 Sepsis, unspecified organism (principal); J18.9 Pneumonia, unspecified organism; I50.33 Acute on chronic diastolic (congestive) heart failure; K92.2 Gastrointestinal hemorrhage, unspecified; R07.89 Other chest pain; D63.8 Anemia in other chronic diseases classified elsewhere; E11.51 Type 2 diabetes mellitus with diabetic peripheral angiopathy without gangrene; E78.5 Hyperlipidemia, unspecified; F03.90 Unspecified dementia, unspecified severity, without behavioral disturbance, psychotic disturbance, mood disturbance, and anxiety; I11.0 Hypertensive heart disease with heart failure; I48.2 Chronic atrial fibrillation; M15.9 Polyosteoarthritis, unspecified; Y95 Nosocomial condition; Z96.653 Presence of artificial knee joint, bilateral; Z82.49 Family history of ischemic heart disease and other diseases of the circulatory system; Z85.3 Personal history of malignant neoplasm of breast; Z85.42 Personal history of malignant neoplasm of other parts of uterus; Z85.828 Personal history of other malignant neoplasm of skin; Z90.711 Acquired absence of uterus with remaining cervical stump; Z92.21 Personal history of antineoplastic chemotherapy; Z98.41 Cataract extraction status, right eye; Z98.42 Cataract extraction status, left eye; Z88.0 Allergy status to penicillin
CPT/HCPCS: 36415; 36569; 71045; 71046; 80048; 80053; 80202; 82274; 82550; 82947; 83540; 83550; 83605; 83735; 83880; 84484; 85025; 85027; 87641; 93005; 93308; 93320; 93325; 94640; J1815; J2185; J3370; J7040; J7050; J7613; 97530

== ENCOUNTER → 2019-06-21 | Outpatient (CLI) | payer MEDICARE, BC, OTHER ==
[~2019-06-21] MED LIST changes: -DILT120C85 PO; +DILT120C99 PO; +DIPH-121 PO; +DIPH25TA26 PO; +DOCU-109 PO; +FURO-69 PO; -GLIM2TAB2 PO; +GLIM2TAB3 PO; +LEVO750T31 PO; +METO50TA6 PO; +MULT1TAB52 PO; +OMEP-229 PO; -OMEP20CA9 PO; +ONDA4TAB12 PO; +ONDA4TAB7 PO
== END | disposition home or self-care (01) ==
LOC: LAB 08:06
PROVIDERS: ATTEND Nurse Practitioner
DX: M81.0 Age-related osteoporosis without current pathological fracture (principal)
CPT/HCPCS: 36415; 82310

== ENCOUNTER → 2019-08-02 | Outpatient (CLI) | payer MEDICARE, BC, OTHER ==
[~2019-08-02] MED LIST changes: -GLIM2TAB3 PO; +GLIM2TAB7 PO; -OMEP-229 PO; +OMEP20CA16 PO
[2019-08-02 09:21] LABS: CALCIUM 8.5 mg/dL (8.5-10.1); CREATININE 1.3 mg/dL (0.6-1.0); GFR 38.8; POTASSIUM 4.4 mmol/L (3.5-5.1)
== END | disposition home or self-care (01) ==
LOC: LAB 08:09
PROVIDERS: ATTEND Nurse Practitioner
DX: N17.9 Acute kidney failure, unspecified (principal)
CPT/HCPCS: 36415; 80048

== ENCOUNTER → 2019-08-23 | Outpatient (CLI) | payer MEDICARE, BC, OTHER ==
[2019-08-23 23:07] LABS: HEMOGLOBIN A1C 7.3 % (4.8-5.6)
== END | disposition home or self-care (01) ==
LOC: LAB 08:04
PROVIDERS: ATTEND Nurse Practitioner Gerontology
DX: E11.65 Type 2 diabetes mellitus with hyperglycemia (principal); Z79.4 Long term (current) use of insulin
CPT/HCPCS: 36415; 82985; 83036

== ENCOUNTER → 2020-05-08 | Outpatient (CLI) | payer MEDICARE, BC, OTHER ==
[~2020-05-08] MED LIST changes: +MULT-445 PO; -MULT1TAB52 PO
--- NOTE | 2020-05-08 16:59 | RAD ---
EXAMINATION: [facility] WO CONTRST RT, 05/08/2020 4:00 PM CLINICAL INDICATION: Pain, swelling post injury COMPARISON: None TECHNIQUE: Helical CT imaging performed of the right wrist without the use of intravenous contrast. Coronal reformats were obtained. One or more of the following individualized dose reduction techniques were utilized for this examination: 1. Automated exposure control 2. Adjustment of the mA and/or kV according to patient size 3. Use of iterative reconstruction technique. FINDINGS: There is a mildly impacted distal radius fracture with extension to articular surface dorsally. No gap or depression at the articular surface. There is mild volar angulation. There is a small nondisplaced ulnar styloid fracture. No other fracture. There is severe degenerative joint disease at the first CMC joint and mild degenerative joint disease at the other CMC joints. Carpal cysts are seen in the scaphoid and capitate. There is chondrocalcinosis. Mild soft tissue swelling at the wrist. IMPRESSION: Mildly impacted, intra-articular distal radius fracture. Nondisplaced ulnar styloid fracture. Electronically signed by: Ava Gamez MD (05/08/2020 4:56 PM) [id number]
== END ==
LOC: CT 15:43
PROVIDERS: ATTEND Family Medicine
DX: S69.91XA Unspecified injury of right wrist, hand and finger(s), initial encounter (principal); M19.041 Primary osteoarthritis, right hand; R22.31 Localized swelling, mass and lump, right upper limb; X58.XXXA Exposure to other specified factors, initial encounter; Y93.89 Activity, other specified; Y92.89 Other specified places as the place of occurrence of the external cause; Y99.8 Other external cause status
CPT/HCPCS: 73200